=== PATIENT | male | born 1955 | race Hispanic/Latino ===

== ENCOUNTER 2016-07-14 19:05 | Inpatient (IN) | payer MEDICAID ==
--- NOTE | 2016-07-14 19:32 | ED.PDOC ---
History of Present Illness - General Chief Complaint: Abdominal Pain Stated Complaint: abd pain and swelling in his legs Time Seen by Provider: 07/14/16 19:13 Source: patient Exam Limitations: no limitations - History of Present Illness Initial Comments: Patient presents with increasing edema for 3-4 weeks. He says it is in his legs and abdomen. He has been to other hospitals, the last one a week ago, but denies any current diagnosis. He has a history of cardiac surgery that he says was a valve repair. Denies hx of AMI. He has had a previous episode of edema years ago. He also has had a non-productive cough for one week. He says he was told he was getting pneumonia by the last hospital. Denies any chest pain. He does have mild pain in both feet when standing because of the fluid. No other complaints. Timing/Duration: other - one month Severity: moderate Improving Factors: nothing Worsening Factors: nothing Associated Symptoms: denies symptoms Allergies/Adverse Reactions: Allergies NO KNOWN ALLERGY Allergy (Verified 07/14/16 19:12) Home Medications: Ambulatory Orders Aspirin [Aspirin Adult Low Dose] 81 mg PO QAM #30 tab 02/24/15 Lisinopril 10 mg PO QAM #30 tab 02/24/15 Metformin HCl 500 mg PO BID #60 tab 02/24/15 Simvastatin [Zocor] 20 mg PO QPM #30 tab 02/24/15 Acetaminophen W/ Codeine [Acetaminophen/Codeine 300-30 mg] 1 tab PO Q6-8H PRN # 15 tab 02/26/15 Ibuprofen 600 mg PO Q8HRS PRN #30 tab 02/26/15 Cyclobenzaprine HCl [Flexeril] 10 mg PO Q8HR PRN #20 tab 02/27/15 Review of Systems - Review of Systems Constitutional: States: no symptoms reported EENTM: States: no symptoms reported Respiratory: States: see HPI Cardiology: States: no symptoms reported Gastrointestinal/Abdominal: States: no symptoms reported Genitourinary: States: no symptoms reported Musculoskeletal: States: no symptoms reported Skin: States: no symptoms reported Neurological: States: no symptoms reported Endocrine: States: no symptoms reported Hematologic/Lymphatic: States: no symptoms reported Past Medical History (General) - Patient Medical History Hx Seizures: No Hx Stroke: No Hx Dementia: No Hx Asthma: No Hx of COPD: No Hx Cardiac Disorders: No Hx Congestive Heart Failure: No Hx Pacemaker: No Hx Hypertension: No Hx Thyroid Disease: No Hx Diabetes: No Hx Gastroesophageal Reflux: No Hx Renal Disease: No Hx Cancer: No Hx of HIV: No Hx Hepatitis C: No Hx MRSA: No - Vaccination History Hx Tetanus, Diphtheria Vaccination: No - Social History Hx Tobacco Use: No Hx Chewing Tobacco Use: No Hx Alcohol Use: Yes - daily last drink 1 1/2 week ago Hx Substance Use: No Hx Substance Use Treatment: No Hx Depression: No Hx Physical Abuse: No Hx Emotional Abuse: No Hx Suspected Abuse: No Family Medical History - Family History Mother Family History: Unknown Physical Exam - Physical Exam General Appearance: Alert Eye Exam: bilateral normal Ears, Nose, Throat: normal ENT inspection Neck: non-tender, full range of motion, supple Respiratory: chest non-tender, lungs clear, normal breath sounds Cardiovascular/Chest: normal peripheral pulses, regular rate, rhythm Gastrointestinal/Abdominal: normal bowel sounds, non tender, soft, distended Back Exam: normal inspection, no CVA tenderness Extremity: other - 2+ non-pitting edema bilateral feet to mid-tibia Neurologic: no motor/sensory deficits Skin Exam: normal color Lymphatic: no adenopathy Progress - Progress Progress: 07/14/16 20:25 Laboratory Tests 07/14/16 19:35 WBC 7.0 RBC 3.89 L Hgb 10.8 L Hct 33.6 L MCV 86.3 MCH 27.7 MCHC 32.1 L RDW 14.9 H Plt Count 209 MPV 8.7 Absolute Neuts (auto) 5.30 Absolute Lymphs (auto) 1.00 Absolute Monos (auto) 0.40 Absolute Eos (auto) 0.30 Absolute Basos (auto) 0.10 Neutrophils % 75.6 Lymphocytes % 13.8 L Monocytes % 5.0 Eosinophils % 4.5 Basophils % 1.1 PT 13.5 H INR 1.200 Sodium 139 Potassium 3.9 Chloride 106 Carbon Dioxide 26 Anion Gap 10.9 L BUN 24 H Creatinine 0.99 BUN/Creatinine Ratio 24.2 H Random Glucose 182 H Serum Osmolality 286.2 Calcium 8.8 Total Bilirubin 0.8 AST 28 ALT 27 Alkaline Phosphatase 353 H Creatine Kinase 126 CK-MB (CK-2) 5.9 H* CK-MB (CK-2) % 4.68 H Troponin I 0.05 B-Natriuretic Peptide 2180.0 H* Serum Total Protein 8.2 Albumin 3.2 Globulin 5.0 H Albumin/Globulin Ratio 0.6 L BNP 2180. LFTs wnl. Likely CHF anasarca. Lasix 80 mg IV given in the ER. Patient admitted for CHF exacerbation. Departure - Departure Clinical Impression: CHF (congestive heart failure) Disposition: Admit Patient Condition: Good Departure Forms: ED Discharge - Pt. Copy, Patient Portal Self Enrollment Instructions: DI for Abdominal Pain-Adult Diet: other - as per hospitalist Activity: increase activity as tolerated Home Medications: Ambulatory Orders Aspirin [Aspirin Adult Low Dose] 81 mg PO QAM #30 tab 02/24/15 Lisinopril 10 mg PO QAM #30 tab 02/24/15 Metformin HCl 500 mg PO BID #60 tab 02/24/15 Simvastatin [Zocor] 20 mg PO QPM #30 tab 02/24/15 Acetaminophen W/ Codeine [Acetaminophen/Codeine 300-30 mg] 1 tab PO Q6-8H PRN # 15 tab 02/26/15 Ibuprofen 600 mg PO Q8HRS PRN #30 tab 02/26/15 Cyclobenzaprine HCl [Flexeril] 10 mg PO Q8HR PRN #20 tab 02/27/15
--- NOTE | 2016-07-14 20:00 | RAD ---
EXAM DESCRIPTION: Chest,2 Views CLINICAL HISTORY: edema COMPARISON: None FINDINGS: Cardiac silhouette is mildly enlarged. Patient is status post median sternotomy and aortic valve surgery. Linear opacities within the left lower lobe may represent scar versus subsegmental atelectasis. There is blunting of the left costophrenic angle which could be secondary to pleural fluid. There is no focal parenchymal or pleural disease. There is no acute osseous process visualized. IMPRESSION: Blunted left costophrenic angle and linear opacities in the left lower lung could be secondary to small amount of pleural fluid and atelectasis. Electronically signed by: Jorge Lloyd MD 07/14/2016 5:59 PM PST
[2016-07-14] MEDS ORDERED: FUROSEMIDE INJ 40 MG/4 ML VIAL IV ONE (20:17)
--- NOTE | 2016-07-14 22:56 | HP ---
SUPERVISING PHYSICIAN: Amado Monique MD CHIEF COMPLAINT: Abdominal pain and swelling in his legs. HISTORY OF PRESENT ILLNESS: This is a 60-year-old male patient who has had complaints of increasing swelling in his lower extremities and abdominal pain for several weeks. He has been to other hospitals in the last several weeks, but denies any current congestive heart failure diagnosis. He did have some sort of heart surgery in November of 2015, but he does not know what type of surgery it was. He came to the Emergency Room today because he was having a hard time breathing because he said his "stomach is pushing up into my lungs." He also said that his legs were swelling so much that it hurt to stand on them. In the Emergency Room, his lab showed a hemoglobin of 10.8 and hematocrit 33.6 with white count 7, neutrophils 75.6. Sodium 139, potassium 3.9, chloride 106, carbon dioxide 26, BUN 24, creatinine 0.99, glucose 182, alkaline phosphatase 353, CK-MB 5.9, troponin 0.05, BNP 2180. Chest x-ray showed cardiac silhouette mildly enlarged status post median sternotomy and aortic valve surgery with blunting of the left costophrenic angle which could be secondary to pleural fluid. There is no parenchymal or pleural disease. He was given 80 mg of Lasix in the Emergency Room. The Emergency Room reported that he had very good output, but there is no measured output on the chart. I was called for hospital admission. It is to be noted that the patient is a very poor historian. PAST MEDICAL HISTORY: 1. Hypertension. 2. Diabetes mellitus, type 2. 3. Coronary artery disease. 4. Hyperlipidemia. PAST SURGICAL HISTORY: 1. Cardiac surgery, most likely valve replacement in November of 2015. OUTPATIENT MEDICATIONS: Per the electronic medical record and awaiting verification. ALLERGIES: NO KNOWN DRUG ALLERGIES. SOCIAL HISTORY: He lives alone. He has been seeing a physician at the [facility] in [place], but is unable to drive anymore, so he would like to get established with someone in [place]. He denies any tobacco, ETOH, or illicit drug use. REVIEW OF SYSTEMS: GENERAL: He complains of fatigue. Denies fever or chills. HEENT: Denies sinus pain, ear pain, vision changes, or sore throat. RESPIRATORY: As per history of present illness. CARDIAC: Denies chest pain, palpitations or tachycardia. GASTROINTESTINAL: As per history of present illness. GENITOURINARY: Denies hematuria, nocturia, or polyuria. SKIN: Denies lesions or rashes. NEUROLOGIC: Denies headache, dizziness, or seizures. PHYSICAL EXAMINATION: VITAL SIGNS: Temperature 98.2. Heart rate 92. Respiratory rate 18. Blood pressure 157/88. O2 saturation 95%. GENERAL: This is a 60-year-old male patient who is laying in his hospital bed. He is in no acute distress. HEENT: Normocephalic, atraumatic. Pupils are equal and reactive. Oropharynx is clear. NECK: Supple without mass. There is discernible jugular venous distention. RESPIRATORY: A few scattered crackles bilaterally, otherwise clear to auscultation. CARDIAC: Regular rate and rhythm. ABDOMEN: Rounded. He does have some anasarca, but it is soft, nontender. No organomegaly. Bowel sounds are positive. EXTREMITIES: +1 to 2 edema to bilateral lower extremities. Bilateral pedal pulses are +1. NEUROLOGIC: Awake, alert and oriented times three. SKIN: Warm and dry. There are no lesions or rashes. LABORATORY: Labs and films are as per history of present illness. ASSESSMENT: 1. Congestive heart failure with unknown etiology and BNP of 2180. 2. Coronary artery disease with history of heart surgery. 3. Elevated alkaline phosphatase at 353. 4. Hypertension. 5. Diabetes mellitus, type 2. PLAN: We will admit the patient to the hospital under congestive heart failure orders. He will get scheduled Lasix. We will reevaluate his dosing in the morning. It would most likely be helpful to request his records from [facility]. Dr. Escoto performed his surgery. I have also consulted [employer] to assist him in financial assistance as well as we will need to get his care moved to [facility]. I have also done a potassium level to be done right now as he has diuresed quite a bit and we may need to replace his potassium before morning with strict I&O. Repeat lab and chest x-ray in the morning. It will be helpful for him to get an outpatient echocardiogram. He is presently on lisinopril and the dosage may need to be adjusted. I have also put him on sliding scale insulin coverage. He is on telemetry. We will continue to monitor the patient closely and followup as needed. Dr. Monique is the collaborating physician and available for consultation. #[id number] [facility]
[2016-07-14] MEDS ORDERED: NITROGLYCERIN 0.4 MG 25 EA TAB SL PRN (23:38)
[2016-07-14] MEDS ORDERED: SODIUM CHLORIDE 0.9% (FLUSH) 10 ML SYG IV PRN (23:38)
[2016-07-14] MEDS ORDERED: GLUCAGON INJ 1 MG VIAL SUBCU PRN (23:45)
[2016-07-14] MEDS ORDERED: IV SET AND CAP CHANGE INJ INJ SCH (23:45)
[2016-07-14] MEDS ORDERED: DEXTROSE 50% 25 GM/50 ML SYG IV PRN (23:45)
[2016-07-15] MEDS: FUROSEMIDE INJ 40 MG/4 ML VIAL IV SCH ×2 (05:52→14:24)
--- NOTE | 2016-07-15 07:18 | RAD ---
EXAM: Two view chest. INDICATION: Chest pain. COMPARISON: Chest x-ray: 07/14/2016. FINDINGS: The lungs are clear. The heart is mildly enlarged with changes of valve replacement. There is no pneumothorax. There is mild blunting of the left costophrenic angle, which may be due to a small effusion or pleural thickening. Median sternotomy wires are noted. IMPRESSION: 1. No acute cardiopulmonary process. Electronically signed by: Jaime Elliott MD 07/15/2016 7:18 AM DOCUMENTATION LEAD
--- NOTE | 2016-07-15 07:19 | RAD ---
CLINICAL HISTORY:anasarca. :1955.Sex:Male. TECHNIQUE: Supine and upright views of the abdomen. There is no intestinal dilatation. There is no mass. There is no free air. There is no opaque calculus. Skeletal structures are unremarkable. IMPRESSION: 1. No acute radiographic findings.. Electronically signed by: Jaime Elliott MD 07/15/2016 7:18 AM TRUCK TERMINAL MANAGER
[2016-07-15] MEDS ORDERED: POTASSIUM CHLORIDE 20 MEQ TAB PO ONE (07:28)
[2016-07-15] MEDS: INSULIN LISPRO 100 UNITS/ML PEN SUBCU SCH ×4 (07:42→21:01)
[2016-07-15] MEDS: SODIUM CHLORIDE 0.9% (FLUSH) 10 ML SYG IV SCH ×2 (08:54→21:00)
[2016-07-15] MEDS ORDERED: cefTRIAXone SODIUM 1 GM in SODIUM CHL 0.9% 50ML MIN-BAG+ 50 ML IVPB SCH (10:00)
[2016-07-15] MEDS ORDERED: MAGNESIUM HYDROXIDE 30 ML UD PO PRN (18:22)
--- NOTE | 2016-07-15 22:11 | PCM.CORE ---
Physician DVT/VTE - Prophylaxis Currently: Patient already on anticoagulation therapy - Nurse DVT Assessment & Total Each Risk Factor Represents 3 Points: Medical PT with Hx of SC, CHF, Severe infection/sepsis Each Risk Factor Represents 1 Point: Age 41-60 Each Risk Factor is 1 Point: Varicose Veins/Edema Legs DVT Assessment Score: 5 - 5 or more Very High Risk Treatments: Early Ambulation *, Sequential Compression Device
[2016-07-15] MEDS ORDERED: PANTOPRAZOLE SODIUM IV 40 MG VIAL ONE (22:33)
[2016-07-15] MEDS: ENOXAPARIN SODIUM 40 MG/0.4 ML SYG SUBCU SCH (22:45)
[2016-07-16] MEDS: ACETAMINOPHEN 325 MG TAB PO PRN ×3 (04:52→20:30)
[2016-07-16] MEDS: PANTOPRAZOLE SODIUM TAB 40 MG PO SCH ×2 (06:16→06:47)
[2016-07-16] MEDS ORDERED: PANTOPRAZOLE SODIUM IV 40 MG VIAL IV ONE (06:30)
[2016-07-16] MEDS: INSULIN LISPRO 100 UNITS/ML PEN SUBCU SCH ×4 (07:33→21:16)
[2016-07-16] MEDS: POTASSIUM CHLORIDE 20 MEQ TAB PO SCH (07:44)
--- NOTE | 2016-07-16 08:20 | PN ---
SUPERVISING PHYSICIAN: Amado Monique MD DATE: 07/15/16 SUBJECTIVE: The patient is lying in bed. He states he is feeling much better today. He does complain of some constipation. He said he has not gone to the bathroom in a while. He has no complaints of shortness of breath or swelling. No abdominal pain or nausea or vomiting. OBJECTIVE: VITAL SIGNS: Temperature 98.6, heart rate 84, blood pressure 100/62, respiratory rate 18, 02 saturation 94%. I&O is 440 mils in and 2600 mils out for a negative balance of 2160 plus the output from the Emergency Room. GENERAL: This is a 60 year-old male patient who is lying in his hospital bed. He is in no acute distress. RESPIRATORY: A few scattered crackles throughout the apices but otherwise clear to auscultation. CARDIAC: Regular rate and rhythm. ABDOMEN: Slightly rounded but soft, nondistended, non-tender. Bowel sounds are positive. EXTREMITIES: No cyanosis or clubbing. There is a trace of pedal edema to his bilateral lower extremities. NEUROLOGICAL: Awake, alert, and oriented x3. LABORATORY: CBC is stable with WBC of 6.7, hemoglobin 10, hematocrit 31. Sodium 143, potassium slightly low at 3.3. BUN 23, creatinine 0.95, glucose 97, alkaline phosphatase has come down from 353 yesterday to 283 today. RADIOLOGY: Chest x-ray and abdominal x-ray are both negative for any acute processes. All other labs and films have been reviewed via the EMR. ASSESSMENT: 1. Congestive heart failure with unknown etiology and BNP on admission of 2, 180. 2. Coronary artery disease with history of heart surgery. 3. Elevated alkaline phosphatase that is slightly improved. 4. Hypertension. 5. Diabetes mellitus type 2. PLAN: I have decreased his diuretics. Emy Hogue, our Software Support Analyst , has been discussing with the patient his insurance acceptance and getting the proper paperwork in place. He has improved very much each day. I will back off of the diuretics. I have also replaced his potassium this morning and will repeat his labs in the morning. He will be unable to continue his medical care in [place] and will most likely need to be changed to [facility] upon discharge. He will also need an echocardiogram or we can try to get the medical records from [facility]. We will continue to follow the patient closely and followup as needed. [facility][id number] [facility]
[2016-07-16] MEDS ORDERED: FUROSEMIDE INJ 40 MG/4 ML VIAL IV SCH (09:00)
[2016-07-16] MEDS: SODIUM CHLORIDE 0.9% (FLUSH) 10 ML SYG IV SCH ×2 (09:03→20:30)
--- NOTE | 2016-07-16 18:11 | PN ---
DATE: 07/16/16 SUPERVISING PHYSICIAN: Errol Alfaro M.D. SUBJECTIVE: The patient is doing better today. Notes that he has no complaints of shortness of breath today and that the swelling has decreased. He has had no abdominal pains, nausea or vomiting. He has had no abdominal pains, nausea or vomiting. OBJECTIVE: VITAL SIGNS: Temperature 97.5, pulse 73, blood pressure 131/64, respirations 18, O2 sat 98% on room air. I's and O's show a negative balance of 470 with 2580 in, 3050 out. Weight 75.2 kg. CHEST: Lungs are clear today to auscultation bilaterally. There is no audible rhonchi, wheezing or rales. HEART: Regular rate and rhythm. ABDOMEN: Round but soft, non-tender. Positive bowel sounds. EXTREMITIES: No cyanosis or clubbing. Still has a trace to 1+ edema to the bilateral lower extremities. NEUROLOGIC: He is alert and oriented times three. LABORATORY: CBC shows to be stable with a white count 8.4, hemoglobin 10.5, hematocrit 31.7, platelet count 220,000. Differential is within normal limits. Chemistries show low potassium 3.3 with BUN 21, creatinine 1.1. Glucoses have been 95 to 300. Liver functions show to be within normal limits except for an elevated alkaline phosphatase which is showing improvement from admission now at 270 from an initial 353. ASSESSMENT: 1. Congestive heart failure with unknown etiology and BNP on admission 2,180 without any reference for a recent echocardiogram for review. 2. Coronary artery disease with a history of heart surgery. 3. Elevated alkaline phosphatase showing improvement likely secondary to congestive heart failure. 4. Hypertension. 5. Diabetes mellitus type 2. PLAN: Will continue with current plan of care, decreasing his Lasix today. His Lasix is going to be at 40 daily with close observation. Will continue to replace his potassium as needed. Anticipate discharge tomorrow with repeat laboratory studies and chest x-ray in the morning. Until then, will continue to monitor the patient closely and treat appropriately. Once the patient is discharged, then he will need a followup with [facility] to help arrange an echocardiogram to further assess his left ventricular function. Still awaiting echocardiogram that was supposedly done in [facility]. Will continue to follow the patient up until discharge and until then treat appropriately. #[id number] [facility]
[2016-07-16] MEDS: ENOXAPARIN SODIUM 40 MG/0.4 ML SYG SUBCU SCH (22:11)
[2016-07-17] MEDS: PANTOPRAZOLE SODIUM TAB 40 MG PO SCH (06:05)
[2016-07-17] MEDS ORDERED: PANTOPRAZOLE SODIUM TAB 40 MG PO SCH (06:30)
[2016-07-17] MEDS: INSULIN LISPRO 100 UNITS/ML PEN SUBCU SCH (07:45)
[2016-07-17] MEDS: POTASSIUM CHLORIDE 20 MEQ TAB PO SCH (07:46)
[2016-07-17] MEDS ORDERED: POTASSIUM CHLORIDE 10 MEQ TAB PO SCH (08:00)
[2016-07-17] MEDS ORDERED: metFORMIN HCL 500 MG TAB PO SCH (08:00)
[2016-07-17] MEDS ORDERED: metFORMIN HCL 500 MG TAB ONE (08:12)
[2016-07-17] MEDS ORDERED: FUROSEMIDE 40 MG TAB PO SCH (09:00)
[2016-07-17] MEDS ORDERED: LISINOPRIL 5 MG TAB PO SCH (09:00)
[2016-07-17] MEDS: SODIUM CHLORIDE 0.9% (FLUSH) 10 ML SYG IV SCH (09:20)
[2016-07-17 10:20] VITALS: BP 147/84; TEMP 97.5; O2SAT 98
--- NOTE | 2016-07-18 11:39 | DS ---
SUPERVISING PHYSICIAN: Errol Alfaro M.D. DISCHARGE DIAGNOSIS: 1. Congestive heart failure with unknown etiology with BNP on admission 2,180 without any reference for a recent echocardiogram for review with the patient having recent heart surgery in 2015 with records for last hospitalization at [facility] with surgery being performed by Dr. Escoto for review of possible echocardiogram that was done as an outpatient. Surgery possibly was either for a CABG or aortic valve surgery without any current records for review. The patient was a poor historian on admission. 2. Coronary artery disease with a history of heart surgery in Nov [address] Escoto. 3. Elevated alkaline phosphatase unknown etiology. Need close monitoring as an outpatient. 4. Hypertension, stable. 5. Diabetes mellitus type 2. HISTORY OF PRESENT ILLNESS: Mr. Hernandez is a 60-year-old male patient that was admitted for complaints of increasing swelling in his lower extremities and abdominal pain for several weeks prior to admission. He had been seen in other hospitals in the last weeks, but denies any current congestive heart failure diagnosis. He did have heart surgery in November of 2015, but did not know what type of surgery he had. He came to the Emergency Room on the day of admission, 07/14/16, because he was having a hard time breathing. He said his stomach is pushing up into his lungs. He said that he has had his leg swelling and it hurts him to stand on up. In the Emergency Room, his lab showed a hemoglobin of 10.8 and hematocrit 33.6 with white count 7, troponin 0.05 with a BNP of 2180. Chest x-ray showed cardiac silhouette mildly enlarged status post median sternotomy and aortic valve surgery with blunting of the left costophrenic angle which could be secondary to pleural fluid. There is no parenchymal or pleural disease noted. He was given 80 mg of Lasix in the Emergency Room and had good output, and then admitted to the hospital for further treatment and evaluation. LABORATORY: White count on admission was 7. It stayed within normal limits, at discharge was 8.4. Hemoglobin and hematocrit were stable at 10.5 and 31.7 at discharge. Platelet count was as well at 220,000 within normal limits at discharge. Differential showed no left shift. Coagulation studies showed PT 13.6 with INR 1.2. Chemistries initially on admission showed normal electrolytes with BUN 24, creatinine 0.9. Liver function showed an elevated alkaline phosphatase at 353 with troponin 0.05. BNP was 2180. After treatment with diuresis at time of discharge his alkaline phosphatase was shown to continue to decrease. It was at 270 prior to discharge and on date of discharge electrolytes were normal with potassium 3.7, BUN 25, creatinine 1.9, calcium 8.9. Glucoses ranged from 101 to 251. Urine on admission showed just a small amount of blood on dipstick with microscopic indicating 3 to 5 RBCs. He had no microbiology specimens submitted for review. RADIOLOGY: Initial chest x-ray on admission showed blunting of the left costophrenic angle with linear opacities in the left lower lung possibly secondary to pleural fluid or atelectasis. Repeat chest x-ray showed no acute cardiopulmonary processes. HOSPITAL COURSE: Mr. Hernandez was admitted on 07/14/16 as noted in the History of Present Illness for exacerbation of congestive heart failure and started on diuresis. Initial assessment showed him to have a degree of anasarca from edema which showed good resolution after diuresis. Total diuresis showed well over 5.5 liters of urine with weight going from 71.6 kg down to 65.8 at time of discharge. Vital signs remained stable. Initial blood pressure showed initial hypertension at 155/92, at time of discharge he was showing 147/84. He was started on Lisinopril. He maintained O2 sats in the 90s without any assistance and was able to ambulate with minimal dyspnea, not requiring oxygen for assistance. Last ambulation study on the showed 96% saturations prior to ambulation maintaining 100% for 214 feet and at time of end of ambulation was showing 99%, and was showing no shortness of breath. He was felt clinically improved enough to be discharged home. PLAN: Mr. Hernandez was discharged on 07/17/16 with instructions to have close clinical followup with Venus Silva at [facility], to call the clinic on Tuesday after discharge for appointment time. He was to take his new prescriptions as instructed and monitor his weight daily, and if he had a 3 pound weight gain or more or any shortness of breath, to call the clinic or come to the hospital. He was also encouraged to watch his fluid intake and limit to at least less than 1800 mL per 24 hour period. He is to increase his activity as tolerated and to keep his legs elevated when in a sitting position. He was told to return to the hospital should he have no improvement or any worsening of his symptoms. New prescriptions at time of discharge included: 1. Lasix 40 mg daily, #30. 2. Potassium 10 mEq daily, #30. 3. Lisinopril 5 mg daily, #30. The patient will need an echocardiogram if not already completed, however there was no current records at time of admission for review of echocardiogram. He was discharged in stable condition. #[id number] [facility]
--- NOTE | 2016-07-22 14:09 | RAD ---
NAME: KALLI MENDOZAPROCEDURE: XR CHEST 2 VIEWSORDER DATE: 07/16/2016 10:49 PM CSTACCESSION NUMBER: [id number] CLINICAL HISTORY: chf INDICATION: Same as above COMPARISON: 07/15/2016 TECHNIQUE: PA and and lateral chest radiographs were obtained. FINDINGS: Note is again made of median sternotomy and CABG. Note is again made of a prosthetic cardiac valve. There are no discrete airspace infiltrates, pneumothoraces or pleural effusions. The pulmonary vascularity is normal The cardiomediastinal silhouette is otherwise unremarkable for patient's age and sex. IMPRESSION: There is no acute pleural-parenchymal process seen in the imaged lung condon. Place of interpretation: Teleradiology. Electronically signed by: Brandin Lopez MD 07/17/2016 9:29 AM EMERGENCY MEDICINE
--- NOTE | 2016-08-15 23:46 | RAD ---
NAME: KALLI MENDOZAPROCEDURE: XR CHEST 2 VIEWSORDER DATE: 07/16/2016 10:49 PM CSTACCESSION NUMBER: [id number] CLINICAL HISTORY: chf INDICATION: Same as above COMPARISON: 07/15/2016 TECHNIQUE: PA and and lateral chest radiographs were obtained. FINDINGS: Note is again made of median sternotomy and CABG. Note is again made of a prosthetic cardiac valve. There are no discrete airspace infiltrates, pneumothoraces or pleural effusions. The pulmonary vascularity is normal The cardiomediastinal silhouette is otherwise unremarkable for patient's age and sex. IMPRESSION: There is no acute pleural-parenchymal process seen in the imaged lung condon. Place of interpretation: [facility]iology. Electronically signed by: Brandin Lopez MD 07/17/2016 9:29 AM CRICKET COACH
--- NOTE | 2016-08-16 01:20 | RAD ---
NAME: KALLI MENDOZAPROCEDURE: XR CHEST 2 VIEWSORDER DATE: 07/16/2016 10:49 PM CSTACCESSION NUMBER: [id number] CLINICAL HISTORY: chf INDICATION: Same as above COMPARISON: 07/15/2016 TECHNIQUE: PA and and lateral chest radiographs were obtained. FINDINGS: Note is again made of median sternotomy and CABG. Note is again made of a prosthetic cardiac valve. There are no discrete airspace infiltrates, pneumothoraces or pleural effusions. The pulmonary vascularity is normal The cardiomediastinal silhouette is otherwise unremarkable for patient's age and sex. IMPRESSION: There is no acute pleural-parenchymal process seen in the imaged lung condon. Place of interpretation: Teleradiology. Electronically signed by: Brandin Lopez MD 07/17/2016 9:29 AM SHREDDING SPECIALIST
--- NOTE | 2016-08-16 02:12 | RAD ---
NAME: KALLI MENDOZAPROCEDURE: XR CHEST 2 VIEWSORDER DATE: 07/16/2016 10:49 PM CSTACCESSION NUMBER: [id number] CLINICAL HISTORY: chf INDICATION: Same as above COMPARISON: 07/15/2016 TECHNIQUE: PA and and lateral chest radiographs were obtained. FINDINGS: Note is again made of median sternotomy and CABG. Note is again made of a prosthetic cardiac valve. There are no discrete airspace infiltrates, pneumothoraces or pleural effusions. The pulmonary vascularity is normal The cardiomediastinal silhouette is otherwise unremarkable for patient's age and sex. IMPRESSION: There is no acute pleural-parenchymal process seen in the imaged lung condon. Place of interpretation: Teleradiology. Electronically signed by: Brandin Lopez MD 07/17/2016 9:29 AM APPEALS AND GENERALIST CLERK
--- NOTE | 2016-08-16 04:24 | RAD ---
NAME: KALLI MENDOZAPROCEDURE: XR CHEST 2 VIEWSORDER DATE: 07/16/2016 10:49 PM CSTACCESSION NUMBER: [id number] CLINICAL HISTORY: chf INDICATION: Same as above COMPARISON: 07/15/2016 TECHNIQUE: PA and and lateral chest radiographs were obtained. FINDINGS: Note is again made of median sternotomy and CABG. Note is again made of a prosthetic cardiac valve. There are no discrete airspace infiltrates, pneumothoraces or pleural effusions. The pulmonary vascularity is normal The cardiomediastinal silhouette is otherwise unremarkable for patient's age and sex. IMPRESSION: There is no acute pleural-parenchymal process seen in the imaged lung condon. Place of interpretation: Teleradiology. Electronically signed by: Brandin Lopez MD 07/17/2016 9:29 AM FIRMWARE ARCHITECT
--- NOTE | 2016-08-16 05:34 | RAD ---
NAME: KALLI MENDOZAPROCEDURE: XR CHEST 2 VIEWSORDER DATE: 07/16/2016 10:49 PM CSTACCESSION NUMBER: [id number] CLINICAL HISTORY: chf INDICATION: Same as above COMPARISON: 07/15/2016 TECHNIQUE: PA and and lateral chest radiographs were obtained. FINDINGS: Note is again made of median sternotomy and CABG. Note is again made of a prosthetic cardiac valve. There are no discrete airspace infiltrates, pneumothoraces or pleural effusions. The pulmonary vascularity is normal The cardiomediastinal silhouette is otherwise unremarkable for patient's age and sex. IMPRESSION: There is no acute pleural-parenchymal process seen in the imaged lung condon. Place of interpretation: Teleradiology. Electronically signed by: Brandin Lopez MD 07/17/2016 9:29 AM BENEFITS PROCESSOR
== END 2016-07-17 11:30 | disposition home or self-care (01) | DRG 293 ==
LOC: ER 19:05 → OBSVTOIN 22:54 → MS 22:54
PROVIDERS: ADMIT Nurse Practitioner Acute Care; ATTEND Nurse Practitioner Family
DX: I11.0 Hypertensive heart disease with heart failure (principal); I50.9 Heart failure, unspecified; E87.6 Hypokalemia; K59.00 Constipation, unspecified; I25.10 Atherosclerotic heart disease of native coronary artery without angina pectoris; R74.8 Abnormal levels of other serum enzymes; E11.9 Type 2 diabetes mellitus without complications; E78.5 Hyperlipidemia, unspecified; Z79.82 Long term (current) use of aspirin; Z98.890 Other specified postprocedural states; Z79.84 Long term (current) use of oral hypoglycemic drugs; Z79.899 Other long term (current) drug therapy

== ENCOUNTER → 2016-08-10 | Outpatient (CLI) | payer SELFPAY ==
--- NOTE | 2016-08-10 13:14 | RAD ---
EXAM DESCRIPTION: XR ABDOMEN 2 VIEWS SUPINE ERECT CLINICAL HISTORY: 60 y/o M, ABDOMEN PAIN COMPARISON: None. FINDINGS: Supine and upright views of the abdomen show an abnormal bowel gas pattern with air and fluid-filled loops of small bowel in the mid abdomen and left upper quadrant. The loops are not significantly dilated. There is air in stool in the colon. Scarring is present in the medial left lung base. Heart size is prominent. Aortic valve replacement noted. IMPRESSION: 1. Nonspecific but abnormal bowel gas pattern with mildly prominent loops of air and fluid-filled small bowel in the left upper quadrant and mid abdomen. Gastroenteritis could have this appearance. Electronically signed by: Marty Aviles MD 08/10/2016 13:12
--- NOTE | 2016-08-10 13:16 | RAD ---
EXAM DESCRIPTION: XR CHEST 2 VIEWS CLINICAL HISTORY: HEART FAILURE COMPARISON: 17 July 2016 TECHNIQUE: PA/lateral FINDINGS: There is mild cardiomegaly without failure. Changes status post aortic valve replacement and coronary bypass. Scarring in the left medial lung base not changed since prior. There is no acute parenchymal consolidation. IMPRESSION: 1. Cardiomegaly without failure 2. Scarring in the left medial posterior lung base Electronically signed by: Marty Aviles MD 08/10/2016 13:14
== END | disposition home or self-care (01) ==
LOC: YCFC.O 11:35
PROVIDERS: ATTEND Nurse Practitioner Family
DX: I50.9 Heart failure, unspecified (principal); R10.9 Unspecified abdominal pain; R60.0 Localized edema; E11.65 Type 2 diabetes mellitus with hyperglycemia; R74.8 Abnormal levels of other serum enzymes

== ENCOUNTER 2016-08-13 03:29 | Emergency (ER) | payer SELFPAY ==
--- NOTE | 2016-08-13 03:50 | ED.PDOC ---
History of Present Illness - General Chief Complaint: General Stated Complaint: swelling in legs and abd distension Time Seen by Provider: 08/13/16 03:49 Source: patient, RN notes reviewed, Vital Signs reviewed Exam Limitations: no limitations - History of Present Illness Initial Comments: Jonh 61 y/o male with history of dm 2,cad s/p cabg December 2015 stated his legs had gradually swelled up as well as increasing abdominal girth for the last 6 months he stated that the last 5 days unable to sleep abdomen and legs getting tight.Denies any chest pain but with exertional sob,no orthopnea.Stated he had not been taking all his prescibed medications as ordered according to him making him more weak. Timing/Duration: other - 6 months Severity: moderate Improving Factors: nothing Worsening Factors: nothing Associated Symptoms: denies symptoms Allergies/Adverse Reactions: Allergies NO KNOWN ALLERGY Allergy (Verified 07/14/16 20:27) Home Medications: Ambulatory Orders Metformin HCl 1,000 mg PO BID 07/15/16 Furosemide [Lasix] 40 mg PO DAILY #30 tab 07/17/16 Lisinopril [Prinivil] 5 mg PO DAILY #30 tab 07/17/16 Potassium Chloride [Micro-K] 10 meq PO DAILY #30 cap 07/17/16 Levothyroxine Sodium [Levo-T] 25 mcg PO ACBK #30 tab 08/13/16 Polyethylene Glycol 3350 [Miralax] 1 pow PO 08/13/16 Review of Systems - Review of Systems Constitutional: States: no symptoms reported EENTM: States: no symptoms reported Respiratory: States: no symptoms reported Cardiology: States: see HPI Gastrointestinal/Abdominal: States: no symptoms reported Genitourinary: States: no symptoms reported Musculoskeletal: States: no symptoms reported Skin: States: no symptoms reported Neurological: States: no symptoms reported Endocrine: States: no symptoms reported Hematologic/Lymphatic: States: no symptoms reported Past Medical History (General) - Patient Medical History Hx Seizures: No Hx Stroke: No Hx Dementia: No Hx Asthma: No Hx of COPD: No Hx Cardiac Disorders: No Hx Congestive Heart Failure: Yes - New onset Hx Pacemaker: No Hx Hypertension: Yes Hx Thyroid Disease: No Hx Diabetes: Yes Hx Gastroesophageal Reflux: No Hx Renal Disease: No Hx Cancer: No Hx of HIV: No Hx Hepatitis C: No Hx MRSA: No Surgical History: coronary bypass surgery - Vaccination History Hx Tetanus, Diphtheria Vaccination: No Hx Influenza Vaccination: No Hx Pneumococcal Vaccination: Yes - Social History Hx Tobacco Use: No Hx Chewing Tobacco Use: No Hx Alcohol Use: Yes - quit 1 yr ago Hx Substance Use: No Hx Substance Use Treatment: No Hx Depression: No Hx Physical Abuse: No Hx Emotional Abuse: No Hx Suspected Abuse: No - Activities of Daily Living Patient Lives Alone: Yes - has house in [place] but w/2 children here in town Grooming Ability: Independent Eating (Feeding) Ability: Independent Toileting Ability: Independent Family Medical History - Family History Mother Family History: Unknown Hx Family Hypertension: Yes - mom Hx Family Diabetes: Yes - mom Physical Exam - Physical Exam General Appearance: Alert, Comfortable, No apparent distress Eye Exam: bilateral normal Ears, Nose, Throat: hearing grossly normal, normal ENT inspection, normal pharynx Neck: non-tender, full range of motion, supple, normal inspection Respiratory: chest non-tender, lungs clear, no respiratory distress, rales - bases Cardiovascular/Chest: normal peripheral pulses, regular rate, rhythm, no edema, no gallop, no JVD, no murmur Peripheral Pulses: radial,right: 2+, radial,left: 2+ Gastrointestinal/Abdominal: normal bowel sounds, non tender, soft, distended Back Exam: normal inspection, no CVA tenderness, no vertebral tenderness Extremity: non-tender, no calf tenderness, pedal edema - bilateral Neurologic: no motor/sensory deficits, alert, normal mood/affect, oriented x 3 Skin Exam: normal color, warm/dry Lymphatic: no adenopathy Progress - Results/Orders Results/Orders: 08/13/16 03:51 Chest,1 View [RAD] Stat 08/13/16 04:15 B-TYPE NATRIURETIC PEPTIDE/BNP Stat CARDIAC PANEL,ER Stat COMPLETE METABOLIC PROFILE Stat TSH [THYROID STIMULATING HORMONE] Stat EKG STAT Laboratory Results WBC 7.1 K/mm3 (4.8-10.8) 08/13/16 04:15 RBC 3.91 M/mm3 (4.70-6.10) L 08/13/16 04:15 Hgb 10.7 gm/dL (14.0-18.0) L 08/13/16 04:15 Hct 33.1 % (42.0-52.0) L 08/13/16 04:15 MCV 84.8 fl (80.0-94.0) 08/13/16 04:15 MCH 27.3 pg (27.0-31.0) 08/13/16 04:15 MCHC 32.3 g/dL (33.0-37.0) L 08/13/16 04:15 RDW 16.4 % (11.5-14.5) H 08/13/16 04:15 Plt Count 149 K/mm3 (130-400) 08/13/16 04:15 MPV 9.8 fl (7.40-10.4) 08/13/16 04:15 Absolute Neuts (auto) 4.60 K/uL (1.8-6.8) 08/13/16 04:15 Absolute Lymphs (auto) 1.50 K/uL (1.0-3.4) 08/13/16 04:15 Absolute Monos (auto) 0.60 K/uL (0.2-0.8) 08/13/16 04:15 Absolute Eos (auto) 0.40 K/uL (0.0-0.4) 08/13/16 04:15 Absolute Basos (auto) 0.10 K/uL (0.0-0.1) 08/13/16 04:15 Neutrophils % 64.1 % (42.0-78.0) 08/13/16 04:15 Lymphocytes % 20.5 % (20.0-50.0) 08/13/16 04:15 Monocytes % 8.1 % (2.0-9.0) 08/13/16 04:15 Eosinophils % 5.9 % (1.0-5.0) H 08/13/16 04:15 Basophils % 1.4 % (0.0-2.0) 08/13/16 04:15 Sodium 140 mmol/L (135-145) 08/13/16 04:15 Potassium 4.1 mmol/L (3.6-5.0) 08/13/16 04:15 Chloride 106 mmol/L (101-111) 08/13/16 04:15 Carbon Dioxide 24 mmol/L (21-31) 08/13/16 04:15 Anion Gap 14.1 (12-18) 08/13/16 04:15 BUN 27 mg/dL (7-18) H 08/13/16 04:15 Creatinine 1.01 mg/dL (0.6-1.3) 08/13/16 04:15 BUN/Creatinine Ratio 26.7 (10-20) H 08/13/16 04:15 Random Glucose 113 mg/dL (70-105) H D 08/13/16 04:15 Serum Osmolality 285.3 mOsm/L (275-295) 08/13/16 04:15 Calcium 8.6 mg/dL (8.4-10.2) 08/13/16 04:15 Magnesium 1.9 mg/dL (1.8-2.5) 08/13/16 04:15 Total Bilirubin 1.1 mg/dL (0.2-1.0) H 08/13/16 04:15 AST 25 IU/L (10-42) 08/13/16 04:15 ALT 19 IU/L (10-60) 08/13/16 04:15 Alkaline Phosphatase 388 IU/L (42-121) H 08/13/16 04:15 Creatine Kinase 77 IU/L (38-174) 08/13/16 04:15 CK-MB (CK-2) 3.1 ng/mL (0.0-4.4) 08/13/16 04:15 Troponin I 0.04 ng/mL (0.01-0.05) 08/13/16 04:15 B-Natriuretic Peptide 1540.0 pg/ml (0-100) H* 08/13/16 04:15 Serum Total Protein 7.3 gm/dL (6.4-8.2) 08/13/16 04:15 Albumin 2.9 g/dl (3.2-5.5) L 08/13/16 04:15 Globulin 4.4 gm/dL (2.3-3.5) H 08/13/16 04:15 Albumin/Globulin Ratio 0.7 (1.1-1.9) L 08/13/16 04:15 - EKG/XRAY/CT EKG: LVH, nonspecific ST T wave Chg Comments: HR-76 XRAY: chest - cardiomegaly;slightly increase vascular markings Departure - Departure Clinical Impression: Non compliance w medication regimen, Diabetes mellitus type 2, controlled, Anemia, chronic disease, Hypothyroidism in adult Combined congestive systolic and diastolic heart failure Qualifiers: Congestive heart failure chronicity: acute on chronic Qualifier Code: (I50.43) Acute on chronic combined systolic (congestive) and diastolic (congestive) heart failure Alcoholic cirrhosis of liver Qualifiers: Ascites presence: without ascites Qualifier Code: (K70.30) Alcoholic cirrhosis of liver without ascites Time of Disposition: 05:52 Disposition: Discharge to Home or Self Care Condition: Fair Departure Forms: ED Discharge - Pt. Copy, Patient Portal Self Enrollment Prescriptions: Levothyroxine Sodium [Levo-T] 25 mcg PO ACBK #30 tab Home Medications: Ambulatory Orders Metformin HCl 1,000 mg PO BID 07/15/16 Furosemide [Lasix] 40 mg PO DAILY #30 tab 07/17/16 Lisinopril [Prinivil] 5 mg PO DAILY #30 tab 07/17/16 Potassium Chloride [Micro-K] 10 meq PO DAILY #30 cap 07/17/16 Levothyroxine Sodium [Levo-T] 25 mcg PO ACBK #30 tab 08/13/16 Polyethylene Glycol 3350 [Miralax] 1 pow PO 08/13/16 Additional Instructions: Increase Lasix-20 mg.Take 2 tablets am and 1 tablet at bedtime;Need to resume taking carvedilol and lisinopril;Keep appointment with md this am and need to bring all your home medications show it to your md on your visit.
[2016-08-13] MEDS ORDERED: BUMETANIDE 0.25 MG/ML VIAL IV ONE (03:51)
[2016-08-13] MEDS ORDERED: NITROGLYCERIN 0.4 MG 25 EA TAB SL ONE ×3 (04:01→05:57)
[2016-08-13 06:19] VITALS: BP 159/82; TEMP 98.1; O2SAT 96
--- NOTE | 2016-08-16 00:52 | RAD ---
EXAM: Single view chest. INDICATION: Chest pain. COMPARISON: Chest x-ray: 08/10/2016. FINDINGS: There is a worsening left basilar airspace opacity with left pleural effusion. Heart size is stable. There is no pneumothorax. Median sternotomy wires are noted. IMPRESSION: Worsening left basilar opacity with left pleural effusion Electronically signed by: Jaime Elliott MD 08/13/2016 4:32 AM AIRPORT MAINTENANCE CHIEF
--- NOTE | 2016-08-19 10:47 | RAD ---
EXAM: Single view chest. INDICATION: Chest pain. COMPARISON: Chest x-ray: 08/10/2016. FINDINGS: There is a worsening left basilar airspace opacity with left pleural effusion. Heart size is stable. There is no pneumothorax. Median sternotomy wires are noted. IMPRESSION: Worsening left basilar opacity with left pleural effusion Electronically signed by: Jaime Elliott MD 08/13/2016 4:32 AM RAILROAD CONSTRUCTION DIRECTOR
== END 2016-08-13 06:19 | disposition home or self-care (01) ==
LOC: ER 03:29
DX: I11.0 Hypertensive heart disease with heart failure (principal); I50.43 Acute on chronic combined systolic (congestive) and diastolic (congestive) heart failure; K70.30 Alcoholic cirrhosis of liver without ascites; Z95.1 Presence of aortocoronary bypass graft; E11.9 Type 2 diabetes mellitus without complications; E03.9 Hypothyroidism, unspecified; Z91.14 Patient's other noncompliance with medication regimen; D63.8 Anemia in other chronic diseases classified elsewhere; Z79.899 Other long term (current) drug therapy
CPT/HCPCS: 36415; 71010; 80048; 82550; 82553; 83880; 84443; 84484; 85025; 85610; 85730; 93005; J3490

== ENCOUNTER → 2016-08-13 | Outpatient (CLI) | payer SELFPAY | END | disposition home or self-care (01) | LOC: YCFC.O 10:20 | PROVIDERS: ATTEND Nurse Practitioner Family | DX: I50.9 Heart failure, unspecified (principal); R10.9 Unspecified abdominal pain; R60.0 Localized edema ==

== ENCOUNTER 2016-09-06 18:22 | Emergency (ER) | payer SELFPAY ==
[2016-09-06 18:43] VITALS: O2SAT 96
--- NOTE | 2016-09-06 18:49 | ED.PDOC ---
History of Present Illness - General Chief Complaint: General Stated Complaint: itching x several weeks Time Seen by Provider: 09/06/16 18:37 Source: patient, RN notes reviewed, Vital Signs reviewed Exam Limitations: no limitations - History of Present Illness Initial Comments: Patient c/o generalized itching for the past 2-3 weeks that is worse on his back and legs. He has been treating with calamine lotion. He also is having some epigastric pain. Timing/Duration: other - 2-3 weeks Severity: moderate Improving Factors: medication - Calamine lotion Worsening Factors: nothing Associated Symptoms: denies symptoms Allergies/Adverse Reactions: Allergies NO KNOWN ALLERGY Allergy (Verified 07/14/16 20:27) Home Medications: Ambulatory Orders Metformin HCl 1,000 mg PO BID 07/15/16 Furosemide [Lasix] 40 mg PO DAILY #30 tab 07/17/16 Lisinopril [Prinivil] 5 mg PO DAILY #30 tab 07/17/16 Potassium Chloride [Micro-K] 10 meq PO DAILY #30 cap 07/17/16 Levothyroxine Sodium [Levo-T] 25 mcg PO ACBK #30 tab 08/13/16 Polyethylene Glycol 3350 [Miralax] 1 pow PO 08/13/16 Permethrin 5% [Elimite] 1 bottle TOP ONCE #1 appli 09/06/16 Review of Systems - Review of Systems Constitutional: States: no symptoms reported. Denies: chills, diaphoresis, fever, malaise, weakness EENTM: States: no symptoms reported Respiratory: States: no symptoms reported Cardiology: States: no symptoms reported Gastrointestinal/Abdominal: States: abdominal pain. Denies: constipation, diarrhea, nausea, vomiting Genitourinary: States: no symptoms reported Musculoskeletal: States: no symptoms reported Skin: States: see HPI Neurological: States: no symptoms reported Endocrine: States: no symptoms reported Hematologic/Lymphatic: States: no symptoms reported Past Medical History (General) - Patient Medical History Hx Seizures: No Hx Stroke: No Hx Dementia: No Hx Asthma: No Hx of COPD: No Hx Cardiac Disorders: Yes Hx Congestive Heart Failure: Yes Hx Pacemaker: No Hx Hypertension: Yes Hx Thyroid Disease: No Hx Diabetes: Yes Hx Gastroesophageal Reflux: Yes Hx Renal Disease: No Hx Cancer: No Hx of HIV: No Hx Hepatitis C: No Hx MRSA: No - Vaccination History Hx Tetanus, Diphtheria Vaccination: No Hx Influenza Vaccination: No Hx Pneumococcal Vaccination: No - Social History Hx Tobacco Use: No Hx Chewing Tobacco Use: No Hx Alcohol Use: No Hx Substance Use: No Hx Substance Use Treatment: No Hx Depression: No Hx Physical Abuse: No Hx Emotional Abuse: No Hx Suspected Abuse: No - Female History Patient is a Female of Child Bearing Age (10 -59 yrs old): No Family Medical History - Family History Mother Family History: Unknown Hx Family Hypertension: Yes - mom Hx Family Diabetes: Yes - mom Physical Exam - Physical Exam General Appearance: Alert, Comfortable, No apparent distress, Well Developed, Well Groomed, Well Hydrated, Well Nourished Neck: non-tender, full range of motion, supple, normal inspection Respiratory: chest non-tender, lungs clear, normal breath sounds, no respiratory distress, no accessory muscle use Cardiovascular/Chest: regular rate, rhythm, no edema, no gallop, no JVD, no murmur Gastrointestinal/Abdominal: normal bowel sounds, non tender, soft, no organomegaly, no pulsatile mass Extremity: normal range of motion, non-tender, normal inspection, no pedal edema Neurologic: no motor/sensory deficits, alert, normal mood/affect, oriented x 3 Skin Exam: rash - generalized papules with extensive excorriations. Lymphatic: no adenopathy Progress - Progress Progress: 09/06/16 19:48 Labs show a slightly elevated bilirubin @ 1.5 but he has a history of cirrhosis. They also show he is a little dehydrated. His mild anemia is still present. Will give a liter of NS and a dose of IV protonix and see if that helps with his abd pain. His itching is most likely due to scabies. Will treat give script for treatment. 09/06/16 20:19 Patient reports no change in abd pain after Protonix. Will check pancreatic enzymes and get CT. - Results/Orders Results/Orders: Laboratory Tests 09/06/16 09/06/16 19:00 20:20 WBC 7.3 RBC 4.03 L Hgb 10.9 L Hct 33.7 L MCV 83.7 MCH 27.0 MCHC 32.4 L RDW 17.0 H Plt Count 210 MPV 9.0 Absolute Neuts (auto) 4.90 Absolute Lymphs (auto) 1.20 Absolute Monos (auto) 0.60 Absolute Eos (auto) 0.50 H Absolute Basos (auto) 0.10 Neutrophils % 67.3 Lymphocytes % 16.8 L Monocytes % 8.4 Eosinophils % 6.3 H Basophils % 1.2 ESR 50 H Sodium 135 Potassium 4.3 Chloride 105 Carbon Dioxide 21 Anion Gap 13.3 BUN 26 H Creatinine 1.37 H BUN/Creatinine Ratio 19.0 Random Glucose 165 H Serum Osmolality 278.6 Calcium 8.5 Total Bilirubin 1.6 H AST 30 ALT 32 Alkaline Phosphatase 510 H Serum Total Protein 8.0 Albumin 2.8 L Globulin 5.2 H Albumin/Globulin Ratio 0.5 L Amylase 47 Lipase 33 Urine Opiates Screen Negative Urine Barbiturates Negative Ur Phencyclidine Scrn Negative U Amphetamin/Meth Scrn Negative U Benzodiazepines Scrn Negative U Cocaine Metab Screen Negative U Cannabinoids Screen Negative Vital Signs - 24 hr 09/06/16 09/06/16 09/06/16 18:38 19:23 20:22 Temperature 99.1 F Pulse Rate [ 85 78 78 left arm] Respiratory 18 18 Rate Blood Pressure 176/95 168/97 159/96 [Left Arm] O2 Sat by Pulse 96 Oximetry - EKG/XRAY/CT CT Ordered: Yes - abd/pel: ascites and anascara, gallstones Departure - Departure Clinical Impression: Scabies, Anemia, chronic disease, Ascites controlled with medication Time of Disposition: 21:17 Disposition: Discharge to Home or Self Care Condition: Good Departure Forms: ED Discharge - Pt. Copy, Patient Portal Self Enrollment Instructions: DI for Scabies Diet: resume usual diet Activity: increase activity as tolerated Prescriptions: Permethrin 5% [Elimite] 1 bottle TOP ONCE #1 appli Home Medications: Ambulatory Orders Metformin HCl 1,000 mg PO BID 07/15/16 Furosemide [Lasix] 40 mg PO DAILY #30 tab 07/17/16 Lisinopril [Prinivil] 5 mg PO DAILY #30 tab 07/17/16 Potassium Chloride [Micro-K] 10 meq PO DAILY #30 cap 07/17/16 Levothyroxine Sodium [Levo-T] 25 mcg PO ACBK #30 tab 08/13/16 Polyethylene Glycol 3350 [Miralax] 1 pow PO 08/13/16 Permethrin 5% [Elimite] 1 bottle TOP ONCE #1 appli 09/06/16 Additional Instructions: Wash all bedding and clothing in Hot water
[2016-09-06] MEDS: methylPREDNISolone SODIUM SUC 125 MG/2 ML VIAL IV ONE (19:12)
[2016-09-06] MEDS: IBUPROFEN 200 MG TAB PO ONE (19:15)
[2016-09-06] MEDS: SODIUM CHLORIDE 0.9% 1000ML 1,000 ML IVS ONE (19:38)
[2016-09-06] MEDS ORDERED: SODIUM CHLORIDE 0.9% 10 ML VIAL ONE (19:40)
[2016-09-06] MEDS: PANTOPRAZOLE SODIUM IV 40 MG VIAL IV ONE (19:43)
--- NOTE | 2016-09-06 21:10 | CT ---
EXAM DESCRIPTION: Abdomen/Pelvis w/Contrast CLINICAL HISTORY: Upper/generalized abd pain COMPARISON: None Available TECHNIQUE: Contiguous axial images of the abdomen and pelvis were obtained after the administration of intravenous contrast followed by reconstruction images. FINDINGS: There is a left pleural fluid collection. Increased opacity in the left lower lung may represent atelectasis. There is atherosclerosis. There is free fluid in the abdomen and pelvis. There is atherosclerosis. Stranding of the subcutaneous fat could be secondary to anasarca. There are gallstones within the gallbladder. There is a small left renal cyst. The liver, spleen, pancreas and kidneys are otherwise within normal limits. There is no hydronephrosis or renal stones. Adrenal glands are within normal limits. Aorta is of normal caliber and tapering. There is no bowel obstruction. The appendix is within normal limits. There is no pericecal inflammation. IMPRESSION: Ascites, anasarca, left pleural fluid collection. Please correlate. Diffuse atherosclerosis. Cholelithiasis. If acute cholecystitis is clinically suspected correlation with a sonogram is recommended. Electronically signed by: Jorge Lloyd MD 09/06/2016 9:09 PM CDT
[2016-09-06 21:28] VITALS: BP 170/98; TEMP 97.9
== END 2016-09-06 21:28 | disposition home or self-care (01) ==
LOC: ER 18:22
DX: B86 Scabies (principal); R18.8 Other ascites; D63.8 Anemia in other chronic diseases classified elsewhere; I11.0 Hypertensive heart disease with heart failure; I50.9 Heart failure, unspecified; K21.9 Gastro-esophageal reflux disease without esophagitis; E11.9 Type 2 diabetes mellitus without complications; Z79.899 Other long term (current) drug therapy
CPT/HCPCS: 36415; 74177; 80053; 80307; 82150; 83690; 85025; 85651; J2930; J7030

== ENCOUNTER 2016-10-07 21:01 | Emergency (ER) | payer SELFPAY ==
[2016-10-08] MEDS ORDERED: ASPIRIN TABLET 325 MG TAB PO ONE (01:42)
[2016-10-08] MEDS: SODIUM CHLORIDE 0.9% (FLUSH) 10 ML SYG IV PRN ×2 (01:57→03:21)
--- NOTE | 2016-10-08 02:32 | RAD ---
EXAM: Single view chest. INDICATION: Chest pain. COMPARISON: Chest x-ray: 08/13/2016. 08/10/2016 FINDINGS: Cardiac silhouette: At the upper limit of normal in size Isa: Unremarkable. Lobar consolidation: None. Pleural effusion: None. Pneumothorax: None. Other: Again noted is scarring along the left lung base with mild tenting of the left hemidiaphragm. Bones: Unremarkable. Other: None. IMPRESSION: 1. No acute cardiopulmonary process. Electronically signed by: Jaime Elliott MD 10/08/2016 2:30 AM CDT
[2016-10-08] MEDS ORDERED: FUROSEMIDE INJ 100 MG/10 ML VIAL IV ONE (03:05)
[2016-10-08 03:33] VITALS: O2SAT 98
--- NOTE | 2016-10-08 03:37 | ED.PDOC ---
History of Present Illness - General Chief Complaint: General Stated Complaint: BLE hurting, itching, weak Time Seen by Provider: 10/08/16 01:42 Source: patient, RN notes reviewed, Vital Signs reviewed Exam Limitations: other - poor historian - History of Present Illness Initial Comments: Patient is a 61 y/o male who comes in with bilateral leg pain and swelling for 2 weeks. He does not have a primary care physician. His skin is very tight. The itching is generalized. Patient states he had cardiac surgery about a year and a half ago, but he does not know what they did. He was admitted to inpatient in June and had CHF exacerbation. Patient is not taking any medications as he has not seen a physician since being discharged on 07/17/2016. When asked why he has not followed up, he responds "I don't know." Timing/Duration: getting worse, other - 2 weeks Severity: moderate, severe Improving Factors: nothing Worsening Factors: other - walking Associated Symptoms: other - itching Allergies/Adverse Reactions: Allergies NO KNOWN ALLERGY Allergy (Verified 10/08/16 00:23) Home Medications: Ambulatory Orders Metformin HCl 1,000 mg PO BID 07/15/16 Furosemide [Lasix] 40 mg PO DAILY #30 tab 07/17/16 Lisinopril [Prinivil] 5 mg PO DAILY #30 tab 07/17/16 Potassium Chloride [Micro-K] 10 meq PO DAILY #30 cap 07/17/16 Levothyroxine Sodium [Levo-T] 25 mcg PO ACBK #30 tab 08/13/16 Polyethylene Glycol 3350 [Miralax] 1 pow PO 08/13/16 Permethrin 5% [Elimite] 1 bottle TOP ONCE #1 appli 09/06/16 Review of Systems - Review of Systems Constitutional: Denies: chills, diaphoresis, fever EENTM: States: no symptoms reported Respiratory: States: no symptoms reported Cardiology: States: edema Gastrointestinal/Abdominal: States: no symptoms reported Genitourinary: States: no symptoms reported Musculoskeletal: States: muscle pain, muscle stiffness Skin: States: other - itching Neurological: States: no symptoms reported Endocrine: States: no symptoms reported Hematologic/Lymphatic: States: no symptoms reported All other Systems: Reviewed and Negative Past Medical History (General) - Patient Medical History Hx Seizures: No Hx Stroke: No Hx Dementia: No Hx Asthma: No Hx of COPD: No Hx Cardiac Disorders: No Hx Congestive Heart Failure: No Hx Pacemaker: No Hx Hypertension: Yes Hx Thyroid Disease: No Hx Diabetes: Yes Hx Gastroesophageal Reflux: No Hx Renal Disease: No Hx Cancer: No Hx of HIV: No Hx Hepatitis C: No Hx MRSA: No Surgical History: other - Vaccination History Hx Tetanus, Diphtheria Vaccination: No Hx Influenza Vaccination: No Hx Pneumococcal Vaccination: No Immunizations Up to Date: No - Social History Hx Tobacco Use: No Hx Chewing Tobacco Use: No Hx Alcohol Use: No Hx Substance Use: No Hx Substance Use Treatment: No Hx Depression: No Feels Threatened In Home Enviroment: No Feels Threatened In a Relationship: No Hx Physical Abuse: No Hx Emotional Abuse: No Hx Suspected Abuse: No Family Medical History - Family History Mother Family History: Unknown Hx Family Hypertension: Yes - mom Hx Family Diabetes: Yes - mom Physical Exam - Physical Exam General Appearance: Alert, No apparent distress Ears, Nose, Throat: hearing grossly normal, normal ENT inspection Neck: full range of motion, supple Respiratory: lungs clear, normal breath sounds, no respiratory distress, no accessory muscle use Cardiovascular/Chest: regular rate, rhythm, no gallop, no murmur, other - lower extremity edema with lower leg tightness Gastrointestinal/Abdominal: normal bowel sounds, non tender, soft, no organomegaly, no pulsatile mass Extremity: normal range of motion, pedal edema Neurologic: alert, oriented x 3 Skin Exam: warm/dry, rash - papules on arms and legs Progress - Results/Orders Results/Orders: 10/07/16 10/08/16 10/08/16 23:58 00:00 02:11 Temperature 99.3 F Pulse Rate [ 93 H monitor] Respiratory 18 18 Rate Blood Pressure 165/100 [Left Arm] O2 Sat by Pulse 93 L 93 L Oximetry 10/08/16 03:00 Temperature Pulse Rate [ 89 monitor] Respiratory 18 Rate Blood Pressure 148/98 [Left Arm] O2 Sat by Pulse 98 Oximetry 10/08/16 01:42 IV Care:Saline Lock per Protoc QSHIFT Telemetry .ONCE Sodium Chloride 0.9% (Flush) [Saline Flush Syringe] 10 ml IV PRN PRN EKG Stat Pulse Ox Stat Laboratory Results WBC 8.1 K/mm3 (4.8-10.8) 10/08/16 02:10 RBC 4.25 M/mm3 (4.70-6.10) L 10/08/16 02:10 Hgb 11.8 gm/dL (14.0-18.0) L 10/08/16 02:10 Hct 36.2 % (42.0-52.0) L 10/08/16 02:10 MCV 85.2 fl (80.0-94.0) 10/08/16 02:10 MCH 27.7 pg (27.0-31.0) 10/08/16 02:10 MCHC 32.6 g/dL (33.0-37.0) L 10/08/16 02:10 RDW 18.2 % (11.5-14.5) H 10/08/16 02:10 Plt Count 179 K/mm3 (130-400) 10/08/16 02:10 MPV 9.0 fl (7.40-10.4) 10/08/16 02:10 Absolute Neuts (auto) 5.70 K/uL (1.8-6.8) 10/08/16 02:10 Absolute Lymphs (auto) 1.40 K/uL (1.0-3.4) 10/08/16 02:10 Absolute Monos (auto) 0.60 K/uL (0.2-0.8) 10/08/16 02:10 Absolute Eos (auto) 0.20 K/uL (0.0-0.4) 10/08/16 02:10 Absolute Basos (auto) 0.10 K/uL (0.0-0.1) 10/08/16 02:10 Neutrophils % 71.3 % (42.0-78.0) 10/08/16 02:10 Lymphocytes % 17.0 % (20.0-50.0) L 10/08/16 02:10 Monocytes % 8.0 % (2.0-9.0) 10/08/16 02:10 Eosinophils % 2.8 % (1.0-5.0) 10/08/16 02:10 Basophils % 0.9 % (0.0-2.0) 10/08/16 02:10 PT 12.5 SECONDS (9.4-12.5) 10/08/16 02:10 INR 1.110 10/08/16 02:10 PTT (SP) 33.5 SECONDS (25.1-36.5) 10/08/16 02:10 D-Dimer, Quantitative 716 ng/mL (0-230) H* 10/08/16 02:10 Sodium 137 mmol/L (135-145) 10/08/16 02:10 Potassium 4.0 mmol/L (3.6-5.0) 10/08/16 02:10 Chloride 107 mmol/L (101-111) 10/08/16 02:10 Carbon Dioxide 24 mmol/L (21-31) 10/08/16 02:10 Anion Gap 10.0 (12-18) L 10/08/16 02:10 BUN 23 mg/dL (7-18) H 10/08/16 02:10 Creatinine 1.09 mg/dL (0.6-1.3) 10/08/16 02:10 BUN/Creatinine Ratio 21.1 (10-20) H 10/08/16 02:10 Random Glucose 235 mg/dL (70-105) H 10/08/16 02:10 Serum Osmolality 285.1 mOsm/L (275-295) 10/08/16 02:10 Calcium 8.1 mg/dL (8.4-10.2) L 10/08/16 02:10 Magnesium 2.0 mg/dL (1.8-2.5) 10/08/16 02:10 Total Bilirubin 1.8 mg/dL (0.2-1.0) H 10/08/16 02:10 Direct Bilirubin 1.1 mg/dL (0-0.2) H 10/08/16 02:10 Indirect Bilirubin 0.7 mg/dL (0.2-0.8) 10/08/16 02:10 AST 26 IU/L (10-42) 10/08/16 02:10 ALT 25 IU/L (10-60) 10/08/16 02:10 Alkaline Phosphatase 502 IU/L (42-121) H 10/08/16 02:10 Creatine Kinase 81 IU/L (38-174) 10/08/16 02:10 CK-MB (CK-2) 3.3 ng/mL (0.0-4.4) 10/08/16 02:10 CK-MB (CK-2) % Not Reportable 10/08/16 02:10 Troponin I 0.07 ng/mL (0.01-0.05) H* 10/08/16 02:10 B-Natriuretic Peptide 2680.0 pg/ml (0-100) H* 10/08/16 02:10 Serum Total Protein 7.5 gm/dL (6.4-8.2) 10/08/16 02:10 Albumin 2.4 g/dl (3.2-5.5) L 10/08/16 02:10 Urine Color Yellow (Yellow) 10/08/16 02:10 Urine Appearance Clear (Clear) 10/08/16 02:10 Urine pH 6.0 (4.5-7.8) 10/08/16 02:10 Ur Specific [place] 1.025 (1.005-1.030) 10/08/16 02:10 Urine Protein >=300 mg/dL H 10/08/16 02:10 Urine Glucose (UA) 250 mg/dL (Negative) H 10/08/16 02:10 Urine Ketones Negative mg/dL (NEGATIVE) 10/08/16 02:10 Urine Blood Moderate (Negative) H 10/08/16 02:10 Urine Nitrite Negative 10/08/16 02:10 Urine Bilirubin Small (NEGATIVE) H 10/08/16 02:10 Urine Urobilinogen 4.0 mg/dL (0.2-1.0) H 10/08/16 02:10 Ur Leukocyte Esterase Negative (Negative) 10/08/16 02:10 Urine RBC 3-5 /hpf H 10/08/16 02:10 Urine WBC 0-1 /hpf 10/08/16 02:10 Ur Epithelial Cells 0 /hpf 10/08/16 02:10 Urine Bacteria Rare 10/08/16 02:10 Urine Opiates Screen Negative ng/mL (2000) 10/08/16 02:10 Urine Barbiturates Negative ng/mL (200) 10/08/16 02:10 Ur Phencyclidine Scrn Negative ng/mL (25) 10/08/16 02:10 U Amphetamin/Meth Scrn Negative ng/mL (1000) 10/08/16 02:10 U Benzodiazepines Scrn Negative ng/mL (200) 10/08/16 02:10 U Cocaine Metab Screen Negative ng/mL (300) 04/21/17 02:10 U Cannabinoids Screen Negative ng/mL (50) 10/08/16 02:10 - EKG/XRAY/CT EKG: Sinus - 95 bpm, no ST T wave changes, Abnormal Q waves - Leads V2, V3, V4, Unchanged from XRAY: chest - No acute process Departure - Departure Clinical Impression: Elevated troponin I level, Elevated d-dimer CHF (congestive heart failure) Qualifiers: Congestive heart failure type: systolic Congestive heart failure chronicity: acute on chronic Qualified Code(s): I50.23 - Acute on chronic systolic ( congestive) heart failure Time of Disposition: 03:47 Disposition: Transfer to Hospital Home Medications: Ambulatory Orders Metformin HCl 1,000 mg PO BID 07/15/16 Furosemide [Lasix] 40 mg PO DAILY #30 tab 07/17/16 Lisinopril [Prinivil] 5 mg PO DAILY #30 tab 07/17/16 Potassium Chloride [Micro-K] 10 meq PO DAILY #30 cap 07/17/16 Levothyroxine Sodium [Levo-T] 25 mcg PO ACBK #30 tab 08/13/16 Polyethylene Glycol 3350 [Miralax] 1 pow PO 08/13/16 Permethrin 5% [Elimite] 1 bottle TOP ONCE #1 appli 09/06/16 Transfer to Outside Facility - Transfer Information Accepting Provider:: Dr. Stewart Accepting Facility: [facility] Reason for Transfer: required specialist not available
[2016-10-08] MEDS ORDERED: METOPROLOL TARTRATE INJ 5 MG/5 ML VIAL IV ONE (04:02)
[2016-10-08 04:47] VITALS: BP 156/92; TEMP 98.6
== END 2016-10-08 04:20 | disposition short-term general hospital (02) ==
LOC: ER 21:01
DX: I11.0 Hypertensive heart disease with heart failure (principal); I50.23 Acute on chronic systolic (congestive) heart failure; E11.9 Type 2 diabetes mellitus without complications; R79.89 Other specified abnormal findings of blood chemistry
CPT/HCPCS: 36415; 71010; 80048; 80076; 80307; 81001; 82550; 82553; 83880; 84484; 85025; 85379; 85610; 85730; 93005; 94760; J1940

== ENCOUNTER 2016-12-03 15:19 | Inpatient (IN) | payer SELFPAY ==
[2016-12-03] MEDS ORDERED: ASPIRIN (CHEWABLE) 81 MG TAB PO ONE (15:29)
--- NOTE | 2016-12-03 15:39 | ED.PDOC ---
History of Present Illness - General Chief Complaint: Chest Pain/CO Stated Complaint: chest pain Time Seen by Provider: 12/03/16 15:27 Source: patient Exam Limitations: no limitations - History of Present Illness Initial Comments: Patient presents with chest pain for three days. It started suddenly, is mid- sternal, non-radiating, intermittent, no previous episodes. Worse with getting up and walking or exercising. Patient had CABG 2 years ago. He has NIDDM. Says he has had dyspnea on exertion. Has had some generalized itching recently that has been going on for several days. No other complaints. Timing/Duration: other - 3 days Severity: mild Improving Factors: rest Worsening Factors: movement Associated Symptoms: chest pain Allergies/Adverse Reactions: Allergies NO KNOWN ALLERGY Allergy (Verified 10/08/16 00:23) Home Medications: Ambulatory Orders Metformin HCl 1,000 mg PO BID 07/15/16 Furosemide [Lasix] 40 mg PO DAILY #30 tab 07/17/16 Lisinopril [Prinivil] 5 mg PO DAILY #30 tab 07/17/16 Potassium Chloride [Micro-K] 10 meq PO DAILY #30 cap 07/17/16 Levothyroxine Sodium [Levo-T] 25 mcg PO ACBK #30 tab 08/13/16 Polyethylene Glycol 3350 [Miralax] 1 pow PO 08/13/16 Permethrin 5% [Elimite] 1 bottle TOP ONCE #1 appli 09/06/16 Review of Systems - Review of Systems Constitutional: States: no symptoms reported EENTM: States: no symptoms reported Respiratory: States: see HPI Cardiology: States: see HPI, edema Gastrointestinal/Abdominal: States: no symptoms reported Genitourinary: States: no symptoms reported Musculoskeletal: States: no symptoms reported Skin: States: no symptoms reported Neurological: States: no symptoms reported Endocrine: States: no symptoms reported Hematologic/Lymphatic: States: no symptoms reported Past Medical History (General) - Patient Medical History Hx Seizures: No Hx Stroke: No Hx Dementia: No Hx Asthma: No Hx of COPD: No Hx Cardiac Disorders: No Hx Congestive Heart Failure: No Hx Pacemaker: No Hx Hypertension: Yes Hx Thyroid Disease: No Hx Diabetes: Yes Hx Gastroesophageal Reflux: No Hx Renal Disease: No Hx Cancer: No Hx of HIV: No Hx Hepatitis C: No Hx MRSA: No - Vaccination History Hx Tetanus, Diphtheria Vaccination: No Hx Influenza Vaccination: No Hx Pneumococcal Vaccination: No - Social History Hx Tobacco Use: No Hx Chewing Tobacco Use: No Hx Alcohol Use: No Hx Substance Use: No Hx Substance Use Treatment: No Hx Depression: No Hx Physical Abuse: No Hx Emotional Abuse: No Hx Suspected Abuse: No Family Medical History - Family History Mother Family History: Unknown Hx Family Hypertension: Yes - mom Hx Family Diabetes: Yes - mom Physical Exam - Physical Exam General Appearance: Alert Ears, Nose, Throat: normal ENT inspection Neck: non-tender, full range of motion, supple Respiratory: lungs clear Cardiovascular/Chest: tachycardia Gastrointestinal/Abdominal: normal bowel sounds, non tender, soft Back Exam: no CVA tenderness Extremity: other - trace bipedal edema Skin Exam: normal color Progress - Progress Progress: 12/03/16 18:10 EKG showed sinus tachycardia with no ST changes nor T wave inversions. No LBBB. Patient received ASA 324 mg po x one. CXR showed an area of mild atelectasis vs. new infiltrate but no evidence of CHF. BNP was 2180. Troponin negative. Patient was given Lasix 40 mg IV x one. Admitted for diuresis for mild CHF exacerbation. Laboratory Tests 12/03/16 12/03/16 12/03/16 15:49 15:49 15:49 WBC 7.4 RBC 4.09 L Hgb 11.8 L Hct 35.6 L MCV 87.0 MCH 28.8 MCHC 33.1 RDW 15.1 H Plt Count 213 MPV 9.1 Absolute Neuts (auto) 5.30 Absolute Lymphs (auto) 1.20 Absolute Monos (auto) 0.50 Absolute Eos (auto) 0.40 Absolute Basos (auto) 0.10 Neutrophils % 71.4 Lymphocytes % 15.6 L Monocytes % 6.8 Eosinophils % 4.9 Basophils % 1.3 PT 12.4 INR 1.100 PTT (SP) 32.7 Sodium 137 Potassium 3.7 Chloride 106 Carbon Dioxide 23 Anion Gap 11.7 L BUN 22 H Creatinine 1.23 BUN/Creatinine Ratio 17.9 Random Glucose 260 H Serum Osmolality 286.1 Calcium 8.3 L Total Bilirubin 1.3 H AST 24 ALT 24 Alkaline Phosphatase 470 H Creatine Kinase 87 CK-MB (CK-2) 4.4 CK-MB (CK-2) % Not Reportable Troponin I 0.05 B-Natriuretic Peptide 2180.0 H* Serum Total Protein 7.6 Albumin 2.4 L Globulin 5.2 H Albumin/Globulin Ratio 0.5 L Departure - Departure Clinical Impression: CHF (congestive heart failure) Disposition: Admit Patient Condition: Good Diet: other - as per hospitalist Activity: other - as per hospitalist Referrals: Radha You FNP [Primary Care Provider] - 1-2 Weeks Home Medications: Ambulatory Orders Metformin HCl 1,000 mg PO BID 07/15/16 Furosemide [Lasix] 40 mg PO DAILY #30 tab 07/17/16 Lisinopril [Prinivil] 5 mg PO DAILY #30 tab 07/17/16 Potassium Chloride [Micro-K] 10 meq PO DAILY #30 cap 07/17/16 Levothyroxine Sodium [Levo-T] 25 mcg PO ACBK #30 tab 08/13/16 Polyethylene Glycol 3350 [Miralax] 1 pow PO 08/13/16 Permethrin 5% [Elimite] 1 bottle TOP ONCE #1 appli 09/06/16
--- NOTE | 2016-12-03 16:02 | RAD ---
EXAM DESCRIPTION: Chest,1 View CLINICAL HISTORY: chest pain COMPARISON: October 08, 2016 FINDINGS: Single portable upright frontal view of the chest was obtained. Postsurgical changes of aortic valve replacement with median sternotomy wires. Cardiac silhouette shows borderline cardiomegaly without congestive failure. Increased opacification within the left lung base, atelectasis versus scarring versus early infiltrates. Please correlate clinically clinically. Right lung is clear. No significant pleural effusion. No pneumothorax. IMPRESSION: 1. Cardiomegaly without congestive failure. 2. Increased opacification within the left lung base, atelectasis versus scarring versus early infiltrate. Electronically signed by: Siddhartha Washington MD 12/03/2016 4:00 PM CDT
[2016-12-03] MEDS ORDERED: FUROSEMIDE INJ 40 MG/4 ML VIAL IV ONE ×2 (18:03→20:48)
[2016-12-03] MEDS ORDERED: diphenhydrAMINE HCL 25 MG CAP PO ONE ×2 (18:41→23:18)
--- NOTE | 2016-12-03 20:33 | HP ---
SUPERVISING PHYSICIAN: Errol Alfaro MD CHIEF COMPLAINT: Chest pressure. HISTORY OF PRESENT ILLNESS: Mr. Hernandez is a 61 year-old male patient presenting to the Emergency Room complaining of chest pressure type symptoms over the last 3 days. She noted that suddenly he started having midsternal nonradiating intermittent episodes over the last several days. He noted that the pain was worse when getting up and walking or any exercising. The patient has a history of coronary artery bypass graft 2 years previously and is a non-insulin dependent diabetic. He also notes that he has been having some dyspnea on exertion. Also of note is that he has had some generalized itching which has been present for several weeks. He also reports that he has not taking his medications to include lisinopril and Lasix for over 2 weeks as he has been without the medications due to financial difficulties. He also notes that he has been having some mild abdominal pains in the lower quadrant as well as some right-sided pain that has been intermittent. He denies any nausea, vomiting, diarrhea. Laboratory studies on admission to the Emergency Department shows he had a white count of 7.4 with a hemoglobin of 11.8 and hematocrit 35.6. Platelet count 213,000, no shift noted or differential. Coagulation studies were normal. Chemistries showed normal electrolytes but an elevated alkaline phosphatase as well as a total bilirubin and an elevated BNP. His troponin was within normal limits at 0.05. EKG in the Emergency Department prior to admission showed a sinus tachycardia but no ST changes or T-wave inversions were noted. Chest x-ray showed a mild atelectasis versus a new infiltrate but no evidence of overt congestive heart failure. Given his current symptomatology and chest pressure along with being noncompliant with his medication regimen and concerns for exacerbation of congestive heart failure with elevated BNP as well as the elevated alkaline phosphatase, the patient is now going to be admitted to the medical/surgical floor for further treatment and evaluation. PAST MEDICAL HISTORY: 1. Hypertension. 2. Diabetes mellitus type 2. 3. Coronary artery disease with a previous coronary artery bypass graft. 4. Hyperlipidemia. PAST SURGICAL HISTORY: 1. Cardiac surgery with a coronary artery bypass graft in November 2015. OUTPATIENT MEDICATIONS: Listed on previous medication regimen: 1. Potassium chloride 10 mEq daily. 2. Miralax 1 daily. 3. Metformin 1000 mg twice a day. 4. Lisinopril 5 mg daily. 5. Levothyroxine 25 mcg daily. 6. Lasix 40 mg daily. Note the patient has been without his Lasix and lisinopril for over 2 to 3 weeks. ALLERGIES: NO KNOWN DRUG ALLERGIES. SOCIAL HISTORY: The patient [place] alone. He has previously been seeing a physician in [facility] in [place] but is unable to drive there and is established with [facility]. He denies any tobacco , alcohol or illicit drug use. REVIEW OF SYSTEMS: CONSTITUTIONAL: He does have some fatigue but no fevers or chills. No unintentional weight loss but had some mild weight gain in the last several weeks. HEENT: Denies headaches, does note that he has had some changes in his vision in the last year or so but notes he has not had any nasal congestion, cough or sore throat. CARDIOVASCULAR: As noted in history of present illness. Chest pressure with some lower extremity edema with history of coronary artery disease and a recent coronary artery bypass graft within the last year. GASTROINTESTINAL: Notes he has been having some mild intermittent abdominal pains, more so in the lower quadrant on the right side, sometimes in the right upper are but he is unable to associate this with any specific patterns. He has had no nausea or vomiting but said he has had some diarrhea off and on but he associates that with taking Metformin. GENITOURINARY: He denies any dysuria, hematuria or other urinary symptoms. INTEGUMENTARY: Notes he has been having severe itching, pruritus, over the last month with some hyperpigmented areas where he has been scratching. NEUROLOGICAL: He denies any syncopal episodes, headaches or other neurological symptoms. PHYSICAL EXAMINATION: VITAL SIGNS: Initially in the Emergency Department, temperature was 98.8 with pulse 103, blood pressure 153/99 with respirations 20, saturation 96% on room air. On admission to the medical/surgical floor, temperature was 97.1, pulse 98 , blood pressure 130/78, respirations 18, saturation 95% on room air. Admission weight 71.7 kilograms which is up from previous admission in June of 2016, he was 65.8 kilograms. GENERAL: The patient is alert, appears to be in no acute distress but does appear obviously to no feel well. Notes he is having severe itching at time. HEENT: Tympanic membranes are clear bilaterally. Oropharynx is pink and moist. No lesions are noted. NECK: Supple, full range of motion with jugular venous distention noted bilaterally. CHEST: Lungs are clear to auscultation, just diminished slightly towards the bases, no rhonchi, rales, or wheezes. CARDIOVASCULAR: Cardiac rhythm on the monitor but no murmurs, rubs, or gallops noted. ABDOMEN: Soft with tenderness noted to the right lower quadrant but no rebound tenderness. Positive bowel sounds. EXTREMITIES: He had bilateral lower extremity edema, trace to 1+ but cyanosis or clubbing. LABORATORY: CBC on admission showed a white count of 7.4, hemoglobin 11.8, hematocrit 35.6, platelet count 213,000, differential showed to be within normal limits. Coagulation studies showed normal PT/PTT. Initial chemistries on admission showed normal electrolytes, potassium 3.7, BUN 23, creatinine 1.23 , glucose 260, calcium 8.3, magnesium 1.9. He had elevated bilirubin, additional studies to include a direct and indirect showed elevated bilirubin of 1.1 with 0.6 direct and normal indirect of 0.5 with elevated GGT level of 411. AST and ALT were both normal. Alkaline phosphatase elevated at 470. Review of previous records show that he has had a chronic elevated alkaline phosphatase as high as 510 in August of 2016. Troponin was normal at 0.05, CPK normal at 87. He did have elevated BNP of 2180. Amylase and lipase was negative. Urinalysis pending. RADIOGRAPHIC STUDIES: Chest x-ray in the Emergency Department and per radiology interpretation showed cardiomegaly without congestive heart failure and increased opacification within the left lung base, atelectasis versus scarring versus early infiltrative process. ASSESSMENT: 1. Acute on chronic congestive heart failure unknown etiology, suspect diastolic with current BNP on admission being elevated with the patient being noncompliant with the previous medication regiment to include his lisinopril and Lasix due to financial reasons. 2. Chest pain described as chest pressure likely related to exacerbation of chronic obstructive pulmonary disease with current troponin being negative and EKG showing no acute changes. 3. Elevated alkaline phosphatase at 470 with an elevated direct total bilirubin and GGT level indicative most likely of a hepatobiliary origin with some additional followup needed with concerns for possible choledocholithiasis with the patient having some mild abdominal pain versus secondary to hepatic congestion from acute exacerbation of congestive heart failure. 4. [id number] diabetes mellitus type 2 on Metformin but nod medically compliant with treatment plan with uncontrolled blood sugars with hemoglobin pending. 5. Hypertension with patient failing to comply with medication regimen and exacerbated by exacerbation of congestive heart failure. 6. Chronic pruritus possibly related to cholecystic process as evidenced by the elevated direct bilirubin and elevated GGT. PLAN: The patient is going to be admitted to the hospital under congestive heart failure orders. He was given 40 of Lasix initially in the Emergency Department, this will be continued with 40 of Lasix tonight on admission and 40 of Lasix b.i.d. for 24 hours with close monitoring. The patient given that he has been noncompliant with his medications due to financial reasons, will need a social consultation to assist with financial assistance to establish better care at [facility] as well as help with medication regimen in the future. We will go ahead and put him on a fluid restriction of 1500 cc 24 hours and make him n.p.o. tonight in anticipation of doing either an ultrasound of the liver tomorrow or a CT of the abdomen to further investigate the elevated GTT, alkaline phosphatase and mild abdominal pain. He does need an echocardiogram at some point and reinforcement of his medication regimen. I will continue with his lisinopril tonight and put him on a Nitro patch to assist with some of the symptomatology related to the congestive heart failure exacerbation. Will start him on a sliding scale insulin, he will be on telemetry. Will anticipate length of stay to be 2 to 3 days. Until the, we will continue to monitor the patient closely and treat appropriately. We will plan to do serial cardiac enzymes on him at 6 hours starting with 5 o' clock in the morning and repeat EKGs as needed. #[id number] [facility]
[2016-12-03] MEDS ORDERED: cloNIDine HCL 0.1 MG TAB PO ONE (20:47)
[2016-12-03] MEDS ORDERED: GLUCAGON INJ 1 MG VIAL SUBCU PRN (20:48)
[2016-12-03] MEDS ORDERED: NITROGLYCERIN 0.4 MG 25 EA TAB SL PRN (20:48)
[2016-12-03] MEDS ORDERED: MAGNESIUM HYDROXIDE 30 ML UD PO PRN (20:48)
[2016-12-03] MEDS ORDERED: SODIUM CHLORIDE 0.9% (FLUSH) 10 ML SYG IV PRN (20:48)
[2016-12-03] MEDS ORDERED: DEXTROSE 50% 25 GM/50 ML SYG IV PRN (20:48)
[2016-12-03] MEDS ORDERED: ACETAMINOPHEN 325 MG TAB PO PRN (20:48)
[2016-12-03] MEDS ORDERED: MORPHINE SULFATE INJ 10 MG/ML VIAL IV PRN (20:48)
[2016-12-03] MEDS ORDERED: ONDANSETRON INJ 4 MG/2 ML VIAL IV PRN (20:48)
[2016-12-03] MEDS ORDERED: NITROGLYCERIN 0.4 MG/HR PATCH TOP SCH (21:00)
[2016-12-03] MEDS ORDERED: IV SET AND CAP CHANGE INJ INJ SCH (21:00)
[2016-12-03] MEDS ORDERED: NITROGLYCERIN 0.2 MG/HR PATCH TD ONE (21:53)
[2016-12-03] MEDS: INSULIN LISPRO 100 UNITS/ML PEN SUBCU SCH (22:18)
[2016-12-03] MEDS: LISINOPRIL 10 MG TAB PO SCH (22:20)
[2016-12-03] MEDS: NITROGLYCERIN 0.2 MG/HR PATCH TD SCH (22:21)
[2016-12-03] MEDS: SODIUM CHLORIDE 0.9% (FLUSH) 10 ML SYG IV SCH (22:23)
--- NOTE | 2016-12-03 23:27 | PCM.CORE ---
Physician DVT/VTE - Nurse DVT Assessment & Total Each Risk Factor Represents 3 Points: Medical PT with Hx of GA, CHF, Severe infection/sepsis Each Risk Factor Represents 1 Point: Age 41-60 Each Risk Factor is 1 Point: Varicose Veins/Edema Legs DVT Assessment Score: 5 - 5 or more Very High Risk Treatments: Early Ambulation *, Sequential Compression Device Pharmacological: Enoxaparin 40mg SQ Daily
--- NOTE | 2016-12-04 06:26 | RAD ---
EXAM: Two view chest. INDICATION: Chest pain. COMPARISON: Chest x-ray: 12/03/2016. FINDINGS: Cardiac silhouette: At the upper limit of normal in size with changes of valve replacement Isa: Unremarkable. Lobar consolidation: None. Pleural effusion: None. Pneumothorax: None. Other: There is tenting of the left hemidiaphragm. Bones: Unremarkable. Other: None. IMPRESSION: 1. No acute cardiopulmonary process. Electronically signed by: Jaime Elliott MD 12/04/2016 6:25 AM CDT Workstation: [id number]
--- NOTE | 2016-12-04 07:16 | CT ---
EXAM: CT abdomen and pelvis with contrast. INDICATION: Abdominal pain, acute. TECHNIQUE: Contiguous axial CT images of the abdomen and pelvis. Intravenous contrast: Present. Oral contrast: Absent. DLP 607 mGy-cm. This exam was performed according to our departmental dose-optimization program, which includes automated exposure control, adjustment of the mA and/or kV according to patient size and/or use of iterative reconstruction technique. COMPARISON: 09/06/2016. FINDINGS: Lower chest: Partially imaged. Lung bases: There is a moderate size left pleural effusion Cardiac apex: Unremarkable. Solid abdominal viscera: Liver: Unremarkable. Gallbladder: Cholelithiasis Pancreas: Unremarkable. Spleen: Unremarkable. Adrenal glands: Unremarkable. Right kidney: No hydronephrosis. Left kidney: No hydronephrosis. Urinary bladder: Unremarkable. Abdominal aorta: Atherosclerotic calcifications Peritoneal: Free fluid: None. Free air: None. Other: No pathologic sized lymph nodes in the upper abdomen. Bowel: Stomach: Unremarkable. Small bowel: Unremarkable. Appendix: Unremarkable. Colon: Unremarkable. Rectum: Unremarkable. Prostate: Unremarkable. Bones: Unremarkable. IMPRESSION: Moderate size left pleural effusion. Cholelithiasis. Electronically signed by: Jaime Elliott MD 12/04/2016 7:14 AM CDT Workstation: Back&
[2016-12-04] MEDS: INSULIN LISPRO 100 UNITS/ML PEN SUBCU SCH ×4 (08:40→20:59)
[2016-12-04] MEDS: FUROSEMIDE INJ 40 MG/4 ML VIAL IV SCH ×2 (08:41→17:31)
[2016-12-04] MEDS: ENOXAPARIN SODIUM 40 MG/0.4 ML SYG SUBCU SCH (08:41)
[2016-12-04] MEDS: LISINOPRIL 10 MG TAB PO SCH (08:41)
[2016-12-04] MEDS: ASPIRIN (CHEWABLE) 81 MG TAB PO SCH (08:42)
[2016-12-04] MEDS: SODIUM CHLORIDE 0.9% (FLUSH) 10 ML SYG IV SCH ×2 (08:42→20:58)
[2016-12-04] MEDS ORDERED: POTASSIUM CHLORIDE 10 MEQ TAB PO ONE (08:44)
[2016-12-04] MEDS: POTASSIUM CHLORIDE 20 MEQ TAB PO SCH ×2 (08:46→17:31)
[2016-12-04] MEDS: REMOVE OLD PATCH TOP SCH (10:13)
[2016-12-04] MEDS: NITROGLYCERIN 0.2 MG/HR PATCH TD SCH ×2 (20:58→21:01)
[2016-12-05] MEDS ORDERED: LISINOPRIL 10 MG TAB PO SCH (09:00)
[2016-12-05] MEDS ORDERED: FUROSEMIDE 40 MG TAB PO SCH (09:00)
[2016-12-05] MEDS: ASPIRIN (CHEWABLE) 81 MG TAB PO SCH (09:25)
[2016-12-05] MEDS: POTASSIUM CHLORIDE 20 MEQ TAB PO SCH (09:25)
[2016-12-05] MEDS: INSULIN LISPRO 100 UNITS/ML PEN SUBCU SCH ×2 (09:25→12:25)
[2016-12-05] MEDS: ENOXAPARIN SODIUM 40 MG/0.4 ML SYG SUBCU SCH (09:26)
[2016-12-05] MEDS: SODIUM CHLORIDE 0.9% (FLUSH) 10 ML SYG IV SCH (09:26)
[2016-12-05] MEDS: REMOVE OLD PATCH TOP SCH (09:34)
--- NOTE | 2016-12-05 10:12 | PN ---
DATE: 12-04-16 SUBJECTIVE: The patient is feeling better this morning after diuresis with Lasix last night, approximately 5 liters since admission. His shortness of breath is improved and his edema has resolved. He does continue to have some mild right upper quadrant pain but he says it has been going and going for months. Blood sugars still need to be better controlled as well as he needs to be well controlled in regards to his blood pressure medication regimen. OBJECTIVE: VITAL SIGNS: Temperature 98.7, pulse 80, blood pressure 145/68, respirations 18 , saturation 97% on room air. I&Os show a negative balance of 5080 with 120 in, 5200 out, weight 67.5 kg which is down from admission of 71.5 kg. LUNGS clear to auscultation, diminished towards the bases. No rhonchi or wheezing noted. HEART regular rate and rhythm. ABDOMEN soft, non-tender, positive bowel sounds. EXTREMITIES: No cyanosis, clubbing, or edema. NEUROLOGIC: Alert and oriented x 3. LABORATORY: White count remains within normal limits at 7.2, hematocrit 12.1, hemoglobin 35.8, platelet count 212,000, differential shows to be without a shift. Chemistries show electrolytes to be within normal limits except for a low potassium of 3.2, BUN 23, creatinine 1.19. Glucoses have ranged from 112 to 303. Bilirubin remains elevated at 1.8 as well as alkaline phosphatase at 480. Repeat CPK shows to be normal as well as troponin remains at 0.05. Urinalysis showed 100 protein with small amount of blood, otherwise within normal limits. RADIOLOGY: Repeat chest x-ray 2 view today per radiology interpretation shows no acute cardiopulmonary processes. CT of the abdomen and pelvis with contrast and per radiology interpretation noted a moderate sized left pleural effusion with cholelithiasis. ASSESSMENT: 1. Acute on chronic congestive heart failure unknown etiology, suspect diastolic component with current BNP on admission being elevated with the patient being noncompliant with the previous medication regiment to include his lisinopril and Lasix due to financial difficulties. 2. Chest pain described as chest pressure felt to be related to exacerbation of congestive heart failure with troponin being negative and EKG showing no acute changes with patient being without any chest pains since admission and treatment and initiation. 3. Elevated alkaline phosphatase at 470 with an elevated direct total bilirubin and GGT level indicative most likely of a hepatobiliary origin with CT this morning showing cholelithiasis with patient continuing to have some mild epigastric discomfort at times. Also felt to be possibly exacerbated by hepatic congestion from acute exacerbation of congestive heart failure. 4. Fxk-fkgaoyy-xslinifne diabetes mellitus type 2 on Metformin but not medically compliant with treatment plan with uncontrolled blood sugars with hemoglobin A1c pending. 5. Hypertension with patient failing to comply with medication regimen and exacerbated by exacerbation of congestive heart failure. 6. Chronic pruritus possibly related to cholecystic process as evidenced by the elevated direct bilirubin and elevated GGT. 7. Moderate pleural effusion on left side as noted on CT, likely secondary to exacerbation of congestive heart failure. PLAN: At this point, we will continue with plan of care with Lasix today, 40 mg twice and then resume his Lasix 40 mg once daily in the morning. We will plan to replace his potassium with p.o. replacement and monitor closely. He remains on fluid restriction no less than 1500 cc today. He did have a CT of the abdomen that did show cholelithiasis, otherwise was unremarkable. At some point after discharge and prior to discharge, he will need an ultrasound of his liver to further evaluate the biliary system with outpatient management of the right upper quadrant pain and cholelithiasis with surgical reference either prior to admission or at time of discharge. Until the, we will continue to monitor the patient closely and treat appropriately. #[id number] [facility]
[2016-12-05 10:30] VITALS: O2SAT 95
[2016-12-05 13:36] VITALS: BP 145/82; TEMP 98
--- NOTE | 2016-12-06 10:21 | DS ---
SUPERVISING PHYSICIAN: Errol Alfaro MD DISCHARGE DIAGNOSIS: 1. Acute on chronic congestive heart failure of unknown etiology, suspect diastolic component with current BNP on admission being elevated without any records for review of current echocardiogram with the patient being noncompliant with his previous medication regiment to include his lisinopril and Lasix due to financial difficulties, showing improvement after reinitiation of lisinopril, Lasix and aggressive diuresis. 2. Chest pain, initially described as chest pressure felt to be related to exacerbation of congestive heart failure with troponin being negative and EKG showing no acute changes with patient being without any chest pains since admission and treatment and initiation, felt to be possibly related to hepatic engorgement from exacerbation of congestive heart failure and possibly underlying cholelithiasis symptomatically. 3. Elevated alkaline phosphatase at 470 with an elevated direct total bilirubin and GGT level, indicative most likely of a hepatobiliary origin with CT showing cholelithiasis with patient continuing to have some mild epigastric pain, but prior discharge, pain resolved. It was felt the pain was exacerbated by the underlying hepatic congestion from acute exacerbation of congestive heart failure, but continuation of followup in outpatient setting is warranted to further rule out any cholelithiasis or hepatobiliary abnormalities. 4. Vea-qufisdq-csgszydev diabetes mellitus, type 2, on metformin but not medically compliant with treatment plan with uncontrolled blood sugars with hemoglobin A1c of 10.7. 5. Hypertension with patient failing to comply with medication regimen and exacerbated by exacerbation of congestive heart failure, showing improvement after reinitiation of medication regimen. 6. Chronic pruritus, possibly related to cholecystic process as evidenced by the elevated direct bilirubin and elevated GGT. 7. Moderate pleural effusion on left side as noted on CT, likely secondary to exacerbation of congestive heart failure. 8. Hypothyroidism, on supplementation. HISTORY OF PRESENT ILLNESS: Mr. Hernandez is a 61-year-old male patient presenting to the Emergency Room complaining of chest pressure type symptoms over the prior 3 days. He noted that he suddenly started having midsternal nonradiating intermittent episodes over the last several days. He noted that the pain was worse when getting up and walking or any exercising. The patient has a history of coronary artery bypass graft 2 years previously and is a non-insulin dependent diabetic. He also noted that he has been having some dyspnea on exertion. Also of note is that he has had some generalized itching which has been present for several weeks. He also reported that he has not been taking his medications to include lisinopril and Lasix for over 2 weeks as he has been without the medications due to financial difficulties. He also noted that he had been having some mild abdominal pains in the lower quadrant as well as some right-sided pain that has been intermittent. He denied any nausea, vomiting, diarrhea. He was admitted in stable condition. LABORATORY: CBC on admission showed a normal white count of 7.4, at discharge was 7.9. Hemoglobin and hematocrit were stable at 12.3 and 37.8 at discharge. Platelet count 224,000. Differential within normal limits. Coagulation studies showed normal PT and PT-T. Chemistries on admission showed normal electrolytes with BUN 22, creatinine 1.23, glucose 260, calcium 8.3, magnesium 1.9, total bilirubin 1.3 with repeat total bilirubin 1.1 with elevated direct bilirubin 0.6 and indirect 0.5 with elevated GGT of 411. AST and ALT within normal limits. Alkaline phosphatase elevated at 470. Troponin 0.05. BNP 2180 with amylase and lipase being within normal limits. Repeat troponin the day before discharge on 12/04/16 was 0.05. The patient was without any chest pains. Prior to discharge and after initiation of treatment with fluids with Lasix as well with diuresis, the patient showed a normal sodium with low potassium of 3.1 and he was on potassium replacement. BUN 26, creatinine 1.1. Glucoses were fairly erratic, ranging from 120 to 303. Total bilirubin remained elevated at 1.1 as well as alkaline phosphatase of 410. All other liver functions within normal limits. Urinalysis showed 100 protein with small amount of blood. Otherwise, within normal limits. MICROBIOLOGY: No specimens submitted. RADIOLOGY: Chest x-ray prior to admission per radiologic interpretation showed cardiomegaly without congestive failure, increased opacification in the left lung, atelectasis versus early infiltrative process. Repeat chest x-ray on per radiologic interpretation after initiation of treatment with Lasix and diuresis showed unremarkable chest with no acute cardiopulmonary processes noted. He also had abdominopelvic CT after admission with contrast and per radiologic interpretation, there was note of moderate left pleural effusion with cholelithiasis, no mention of the biliary system was in the report. Please see that final report for full details. HOSPITAL COURSE: Mr. Hernandez is a 61-year-old, male who was admitted as noted in history of present illness for exacerbation of congestive heart failure. He did have some chest pains reportedly noted as chest pressure, but this resolved prior to admission to the Medical/Surgical Floor and at discharge , he was without any chest pain. He was started on Lasix, lisinopril and metformin. He did show good results from the Lasix with diuresing near 10 liters of fluid with his weight changing from 67.5 on admission to 63.5 prior to discharge. Vital signs remained stable. Initially on admission his blood pressure was 130/71 and at discharge was 145/82. Heart rate was 74 at discharge. Temperature was afebrile with T-max being 98.5. Saturations were 95 % on room air at discharge. He was no longer having any abdominal pains after diuresis and was able to tolerate diet with no nausea or vomiting or any diarrhea. It was felt he was clinically stable enough to be discharged to have close clinical followup in the outpatient setting. PLAN: Mr. Hernandez was discharged on 12/05/16 with instructions to establish with [facility] to assist with ongoing medical management of his congestive heart failure, the elevated alkaline phosphatase with need for ultrasound to further rule out any pathology requiring future surgical processes in regards to elevated bilirubin and alkaline phosphatase. He was told to resume his home medications as instructed and start any new prescriptions as directed and to return to the hospital if he had no improvement in his symptoms or other concerning symptoms. He was told to call [facility] on Tuesday to establish a followup as well as he will need cardiac followup as he has congestive heart failure and has had a recent exacerbation. The patient was encouraged go get his medications and told that all his medications were under $4 at [facility] which the patient was apparently unaware that he could get these medications at that cost. The patient was educated on the fact that he needs to check blood sugar on a regular basis and keep a log to take with him to the clinic once he went to followup for better management of his diabetes. Prescriptions included refills for: 1. Nitro tablets 0.4 mg 1 sublingual q.5 minutes as needed times 3 for chest pains, #1 bottle. 2. Aspirin 81 mg daily, #60. 3. Lasix 40 mg daily, #30. 4. Levothyroxine 25 mcg daily at breakfast, #30. 5. Lisinopril 5 mg daily, #30. 6. Magnesium hydroxide for constipation as needed, 30 mL daily. 7. Metformin 100 mg twice daily, #60. 8. MiraLAX 1 daily, #30, as needed for constipation. 9. Micro-K 10 mEq daily, #30. Diet is ADA as tolerated. Activity as tolerated. Condition on discharge was stable and improved. #[id number] [facility]
== END 2016-12-05 13:00 | disposition home or self-care (01) | DRG 293 ==
LOC: ER 15:19 → MS 20:31 → OBSVTOIN 12-04 16:26
PROVIDERS: ADMIT Nurse Practitioner Family; ATTEND Nurse Practitioner Family
PROC: BW21YZZ Computerized Tomography (CT Scan) of Abdomen and Pelvis using Other Contrast (ICD-10-PCS; principal; 2016-12-04)
DX: I11.0 Hypertensive heart disease with heart failure (principal); I50.33 Acute on chronic diastolic (congestive) heart failure; E87.6 Hypokalemia; Z91.120 Patient's intentional underdosing of medication regimen due to financial hardship; T50.1X6A Underdosing of loop [high-ceiling] diuretics, initial encounter; T46.4X6A Underdosing of angiotensin-converting-enzyme inhibitors, initial encounter; R74.8 Abnormal levels of other serum enzymes; K80.20 Calculus of gallbladder without cholecystitis without obstruction; E78.5 Hyperlipidemia, unspecified; E11.65 Type 2 diabetes mellitus with hyperglycemia; L29.9 Pruritus, unspecified; E03.9 Hypothyroidism, unspecified; Z79.899 Other long term (current) drug therapy; Z79.84 Long term (current) use of oral hypoglycemic drugs; Z95.1 Presence of aortocoronary bypass graft; Y92.009 Unspecified place in unspecified non-institutional (private) residence as the place of occurrence of the external cause

== ENCOUNTER 2017-01-13 23:06 | Emergency (ER) | payer SELFPAY ==
[2017-01-13] MEDS ORDERED: NITROGLYCERIN 0.4 MG 25 EA TAB SL ONE ×2 (23:08→23:12)
[2017-01-13] MEDS ORDERED: ASPIRIN TABLET 325 MG TAB ONE (23:08)
[2017-01-13] MEDS ORDERED: ASPIRIN TABLET 325 MG TAB PO ONE (23:12)
[2017-01-13] MEDS ORDERED: SODIUM CHLORIDE 0.9% (FLUSH) 10 ML SYG IV PRN (23:12)
[2017-01-13] MEDS ORDERED: ONDANSETRON INJ 4 MG/2 ML VIAL IV ONE (23:12)
--- NOTE | 2017-01-13 23:36 | RAD ---
EXAM DESCRIPTION: Chest,1 View CLINICAL HISTORY: 61 years Male chest pain COMPARISON: 12/04/2016 FINDINGS: Cardiac size is stable. There has been resolution of atelectasis in the retrocardiac region on the left as compared to the previous study. No new area of infiltrate is noted. Stomach is mildly distended. No pneumothorax. Median sternotomy wires are present. IMPRESSION: No acute abnormality is identified. Electronically signed by: Jumana Hooper 01/13/2017 11:35 PM CDT
[2017-01-14] MEDS ORDERED: ONDANSETRON INJ 4 MG/2 ML VIAL ONE (00:58)
[2017-01-14] MEDS ORDERED: INSULIN, REG.(HUMAN) 100 U/ML VIAL IV ONE (01:20)
[2017-01-14] MEDS ORDERED: BUMETANIDE 0.25 MG/ML VIAL IV ONE (01:27)
[2017-01-14] MEDS ORDERED: INSULIN, REG.(HUMAN) 100 U/ML VIAL SUBCU ONE (01:40)
[2017-01-14] MEDS ORDERED: NITROGLYCERIN 0.4 MG/HR PATCH TOP ONE (01:41)
--- NOTE | 2017-01-14 01:47 | ED.PDOC ---
History of Present Illness - General Chief Complaint: Chest Pain/NM Stated Complaint: chest pains Time Seen by Provider: 01/14/17 01:17 Source: patient Exam Limitations: no limitations - History of Present Illness Initial Comments: Humphrey Hernandez 61 y/o male with history of DM2 and cad s/p cabg stated that he had chest discomfort which started tonight then as he was about to go to sleep his symptoms got worse with sob decided to drive himself to emergency room.He have not been compliant with all his medicationss Timing/Duration: 4-6 hours Severity: moderate Location: central Activities at Onset: rest Prior Chest Pain/Cardiac Workup: cardiac cath, cardiolye scan, heart attack, other - CABG Worsening Factors: nothing Nitro Today/Relief: 0.4 mg x 1, provided by ED Aspirin Treatment Today: 325 mg x 1, provided by ED Associated Symptoms: shortness of breath Allergies/Adverse Reactions: Allergies NO KNOWN ALLERGY Allergy (Verified 10/08/16 00:23) Home Medications: Ambulatory Orders Aspirin [Baby Aspirin] 81 mg PO DAILY 12/05/16 Furosemide [Lasix] 40 mg PO DAILY #30 tab 12/05/16 Levothyroxine Sodium [Levo-T] 25 mcg PO ACBK #30 tab 12/05/16 Lisinopril [Prinivil] 5 mg PO DAILY #30 tab 12/05/16 Magnesium Hydroxide [Milk Of Magnesia] 30 ml PO DAILY PRN 12/05/16 Metformin HCl 1,000 mg PO BID #60 tab 12/05/16 Nitroglycerin 0.4 mg Tab [Nitrostat] 1 ea SL Q5MIN PRN #1 bottle 12/05/16 Polyethylene Glycol 3350 [Miralax] 1 pow PO DAILY #30 pack 12/05/16 Potassium Chloride [Micro-K] 10 meq PO DAILY #30 cap 12/05/16 Review of Systems - Review of Systems Constitutional: States: no symptoms reported EENTM: States: no symptoms reported Respiratory: States: see HPI Cardiology: States: see HPI Gastrointestinal/Abdominal: States: no symptoms reported Genitourinary: States: no symptoms reported Musculoskeletal: States: no symptoms reported Skin: States: no symptoms reported Neurological: States: no symptoms reported Past Medical History (General) - Patient Medical History Hx Seizures: No Hx Stroke: No Hx Dementia: No Hx Asthma: No Hx of COPD: No Hx Cardiac Disorders: Yes - hx NM a year ago Hx Congestive Heart Failure: Yes Hx Pacemaker: No Hx Hypertension: Yes Hx Thyroid Disease: No Hx Diabetes: Yes Hx Gastroesophageal Reflux: No Hx Renal Disease: No Hx Cancer: No Hx of HIV: No Hx Hepatitis C: No Hx MRSA: No Surgical History: coronary bypass surgery - december/2015, other - Vaccination History Hx Tetanus, Diphtheria Vaccination: No Hx Influenza Vaccination: No Hx Pneumococcal Vaccination: No - Social History Hx Tobacco Use: No Hx Chewing Tobacco Use: No Hx Alcohol Use: Yes Hx Substance Use: No Hx Substance Use Treatment: No Hx Depression: No Hx Physical Abuse: No Hx Emotional Abuse: No Hx Suspected Abuse: No - Activities of Daily Living Patient Lives Alone: No - children Family Medical History - Family History Mother Family History: Unknown Hx Family Hypertension: Yes - mom Hx Family Diabetes: Yes - mom Physical Exam - Physical Exam General Appearance: Alert, Comfortable, No apparent distress Eyes, Ears, Nose, Throat Exam: PERRL/EOMI, normal ENT inspection Neck: non-tender, full range of motion, supple Respiratory: chest non-tender, lungs clear, normal breath sounds, no respiratory distress Cardiovascular/Chest: normal peripheral pulses, regular rate, rhythm, no gallop , no murmur Peripheral Pulses: radial,right: 1+, radial,left: 1+ Gastrointestinal/Abdominal: normal bowel sounds, non tender, soft, no organomegaly Extremity: normal range of motion, pedal edema - 1+ bilaterally Neurologic: no motor/sensory deficits, alert, oriented x 3 Skin Exam: normal color, warm/dry Lymphatic: no adenopathy Progress - Progress Progress: 01/14/17 01:52 Vital Signs - 8 hr 01/13/17 01/13/17 01/13/17 23:11 23:14 23:26 Temperature 97.6 F Pulse Rate 118 H Pulse Rate [ 118 H 118 H left] Respiratory 22 18 Rate Blood Pressure 170/115 [left] O2 Sat by Pulse 94 L 90 L Oximetry 01/14/17 00:06 Temperature Pulse Rate Pulse Rate [ 86 left] Respiratory 20 Rate Blood Pressure 153/91 [left] O2 Sat by Pulse 97 Oximetry 01/13/17 23:12 IV Care:Saline Lock per Protoc QSHIFT Telemetry .ONCE Sodium Chloride 0.9% (Flush) [Saline Flush Syringe] 10 ml IV PRN PRN 01/13/17 23:15 B-TYPE NATRIURETIC PEPTIDE/BNP Stat CARDIAC PANEL,ER Stat 01/14/17 01:45 TROPONIN-I Stat 01/14/17 21:00 Simvastatin [Zocor] 40 mg PO BEDTIME Laboratory Results - last 24 hr 01/13/17 23:15 WBC 8.7 RBC 4.87 Hgb 13.9 L Hct 41.2 L MCV 84.7 MCH 28.5 MCHC 33.7 RDW 13.9 Plt Count 232 MPV 9.5 Absolute Neuts (auto) 5.40 Absolute Lymphs (auto) 1.70 Absolute Monos (auto) 0.50 Absolute Eos (auto) 1.00 H Absolute Basos (auto) 0.10 Neutrophils % 61.7 Lymphocytes % 19.7 L Monocytes % 6.3 Eosinophils % 11.1 H Basophils % 1.2 PT 10.3 INR 0.910 PTT (SP) 37.1 H Sodium 132 L Potassium 4.7 Chloride 100 L Carbon Dioxide 23 Anion Gap 13.7 BUN 34 H Creatinine 1.36 H BUN/Creatinine Ratio 25.0 H Random Glucose 537 H* Serum Osmolality 296.5 H Calcium 9.1 Magnesium 2.0 Creatine Kinase 60 CK-MB (CK-2) 4.2 Troponin I 0.05 B-Natriuretic Peptide 966.0 H* - EKG/XRAY/CT EKG: Sinus, Tachy, LVH, nonspecific ST T wave Chg Comments: Heart rate 117 lad XRAY: chest - no acute abnormality Departure - Departure Clinical Impression: Chest discomfort, NSTEMI (non-ST elevated myocardial infarction), Diabetes 1.5 , managed as type 1, Non compliance w medication regimen CHF, chronic Qualifiers: Congestive heart failure type: combined Qualified Code(s): I50.42 - Chronic combined systolic (congestive) and diastolic (congestive) heart failure Time of Disposition: 06:16 - D/W Dr. Baldemar Noguera -ER URS Disposition: Transfer to Hospital Condition: Fair Departure Forms: ED Discharge - Pt. Copy, Patient Portal Self Enrollment Referrals: Radha You FNP [Primary Care Provider] - 1-2 Weeks Home Medications: Ambulatory Orders Aspirin [Baby Aspirin] 81 mg PO DAILY 12/05/16 Furosemide [Lasix] 40 mg PO DAILY #30 tab 12/05/16 Levothyroxine Sodium [Levo-T] 25 mcg PO ACBK #30 tab 12/05/16 Lisinopril [Prinivil] 5 mg PO DAILY #30 tab 12/05/16 Magnesium Hydroxide [Milk Of Magnesia] 30 ml PO DAILY PRN 12/05/16 Metformin HCl 1,000 mg PO BID #60 tab 12/05/16 Nitroglycerin 0.4 mg Tab [Nitrostat] 1 ea SL Q5MIN PRN #1 bottle 12/05/16 Polyethylene Glycol 3350 [Miralax] 1 pow PO DAILY #30 pack 12/05/16 Potassium Chloride [Micro-K] 10 meq PO DAILY #30 cap 12/05/16 Transfer to Outside Facility - Transfer Information Accepting Provider:: Dr. Baldemar REED Md Accepting Facility: [facility] Reason for Transfer: required specialist not available
[2017-01-14] MEDS ORDERED: SIMVASTATIN 20 MG TAB ONE (02:04)
[2017-01-14 04:53] VITALS: BP 133/78; O2SAT 96
[2017-01-14 05:34] VITALS: TEMP 97.6
[2017-01-14] MEDS ORDERED: SIMVASTATIN 20 MG TAB PO SCH (21:00)
== END 2017-01-14 05:20 | disposition short-term general hospital (02) ==
LOC: ER 23:06
DX: I21.4 Non-ST elevation (NSTEMI) myocardial infarction (principal); E10.9 Type 1 diabetes mellitus without complications; I11.0 Hypertensive heart disease with heart failure; I50.42 Chronic combined systolic (congestive) and diastolic (congestive) heart failure; I25.2 Old myocardial infarction; Z91.14 Patient's other noncompliance with medication regimen; Z95.1 Presence of aortocoronary bypass graft; Z79.82 Long term (current) use of aspirin; Z79.899 Other long term (current) drug therapy

== ENCOUNTER 2017-02-22 12:47 | Emergency (ER) | payer SELFPAY ==
--- NOTE | 2017-02-22 12:53 | ED.PDOC ---
History of Present Illness - General Chief Complaint: Cardiovascular Problem Stated Complaint: chest pain Time Seen by Provider: 02/22/17 12:52 Source: patient Exam Limitations: no limitations - History of Present Illness Initial Comments: Humphrey Morton 61 y/o male stated he had been having on and off sharp chest pain non radiating with sob for the last 4 days and getting worse stated have not taken hi medications regularly stating his ss income not enough to pay for his medications.He had CABG in December 2015 after a heart attack. Timing/Duration: getting worse, intermittent, other - 4 days ago Severity: moderate Location: central Activities at Onset: activity Prior Chest Pain/Cardiac Workup: cardiac cath, cardiolye scan, echocardiography , heart attack Improving Factors: other - non compliant with meds Nitro Today/Relief: 0.4 mg x 1 Aspirin Treatment Today: provided by ED Associated Symptoms: chest pain, shortness of breath Allergies/Adverse Reactions: Allergies NO KNOWN ALLERGY Allergy (Verified 02/22/17 13:02) Home Medications: Ambulatory Orders Aspirin [Baby Aspirin] 81 mg PO DAILY 12/05/16 Furosemide [Lasix] 40 mg PO DAILY #30 tab 12/05/16 Levothyroxine Sodium [Levo-T] 25 mcg PO ACBK #30 tab 12/05/16 Lisinopril [Prinivil] 5 mg PO DAILY #30 tab 12/05/16 Magnesium Hydroxide [Milk Of Magnesia] 30 ml PO DAILY PRN 12/05/16 Metformin HCl 1,000 mg PO BID #60 tab 12/05/16 Nitroglycerin 0.4 mg Tab [Nitrostat] 1 ea SL Q5MIN PRN #1 bottle 12/05/16 Polyethylene Glycol 3350 [Miralax] 1 pow PO DAILY #30 pack 12/05/16 Potassium Chloride [Micro-K] 10 meq PO DAILY #30 cap 12/05/16 Review of Systems - Review of Systems Constitutional: States: no symptoms reported Respiratory: States: see HPI, short of breath Cardiology: States: see HPI, chest pain Gastrointestinal/Abdominal: States: no symptoms reported Genitourinary: States: no symptoms reported Musculoskeletal: States: no symptoms reported Past Medical History (General) - Patient Medical History Hx Seizures: No Hx Stroke: No Hx Dementia: No Hx Asthma: No Hx of COPD: No Hx Cardiac Disorders: Yes - hx ID a year ago Hx Congestive Heart Failure: Yes Hx Pacemaker: No Hx Hypertension: Yes Hx Thyroid Disease: No Hx Diabetes: Yes Hx Gastroesophageal Reflux: No Hx Renal Disease: No Hx Cancer: No Hx of HIV: No Hx Hepatitis C: No Hx MRSA: No Surgical History: coronary bypass surgery - Vaccination History Hx Tetanus, Diphtheria Vaccination: No Hx Influenza Vaccination: No Hx Pneumococcal Vaccination: No - Social History Hx Tobacco Use: No Hx Chewing Tobacco Use: No Hx Alcohol Use: Yes Hx Substance Use: No Hx Substance Use Treatment: No Hx Depression: No Hx Physical Abuse: No Hx Emotional Abuse: No Hx Suspected Abuse: No - Activities of Daily Living Patient Lives Alone: Yes - daughter lives in town Family Medical History - Family History Mother Family History: Unknown Hx Family Hypertension: Yes - mom Hx Family Diabetes: Yes - mom Physical Exam - Physical Exam General Appearance: Alert, Anxious, No apparent distress Eyes, Ears, Nose, Throat Exam: normal ENT inspection Neck: non-tender, supple Respiratory: chest non-tender, lungs clear Cardiovascular/Chest: normal peripheral pulses, no gallop, no murmur, tachycardia - heart rate 107 Peripheral Pulses: radial,right: 1+, radial,left: 1+, dorsalis pedis,right: 1+, dorsalis pedis,left: 1+ Gastrointestinal/Abdominal: non tender, soft, no organomegaly Extremity: normal range of motion, no pedal edema, no calf tenderness Neurologic: alert, oriented x 3 Skin Exam: normal color, warm/dry Lymphatic: no adenopathy Progress - Progress Progress: 02/22/17 13:37 Last Vital Signs Temp Pulse 101 H 02/22/17 13:12 Resp 16 02/22/17 13:12 BP 176/97 02/22/17 13:12 Pulse Ox 94 L 02/22/17 13:12 - Results/Orders Results/Orders: Vital Signs - 8 hr 02/22/17 02/22/17 02/22/17 12:52 12:53 12:59 Pulse Rate 109 H Pulse Rate [ 109 H Apical] Respiratory 16 24 Rate Blood Pressure 165/101 165/101 [Left Arm] O2 Sat by Pulse 95 96 Oximetry 02/22/17 02/22/17 02/22/17 13:05 13:12 13:47 Pulse Rate 112 H Pulse Rate [ 101 H 99 H Apical] Respiratory 16 14 Rate Blood Pressure 176/97 162/103 [Left Arm] O2 Sat by Pulse 94 L 98 Oximetry 02/22/17 13:58 Pulse Rate Pulse Rate [ 98 H Apical] Respiratory 16 Rate Blood Pressure 206/98 [Left Arm] O2 Sat by Pulse 100 Oximetry Laboratory Tests 02/22/17 02/22/17 13:00 13:00 WBC 8.6 RBC 4.27 L Hgb 12.0 L Hct 36.2 L MCV 84.7 MCH 28.1 MCHC 33.2 RDW 13.8 Plt Count 209 MPV 8.9 Absolute Neuts (auto) 5.70 Absolute Lymphs (auto) 1.60 Absolute Monos (auto) 0.40 Absolute Eos (auto) 0.70 H Absolute Basos (auto) 0.10 Neutrophils % 66.9 Lymphocytes % 18.9 L Monocytes % 5.1 Eosinophils % 7.9 H Basophils % 1.2 PT 10.2 INR 0.900 PTT (SP) 33.9 D-Dimer, Quantitative 964 H* Sodium 133 L Potassium 4.2 Chloride 104 Carbon Dioxide 24 Anion Gap 9.2 L BUN 25 H Creatinine 1.12 BUN/Creatinine Ratio 22.3 H Random Glucose 466 H* Serum Osmolality 291.5 Calcium 8.5 Magnesium 1.9 Total Bilirubin 0.6 Direct Bilirubin < 0.1 Indirect Bilirubin 0.5 AST 21 ALT 19 Alkaline Phosphatase 156 H Creatine Kinase 79 CK-MB (CK-2) 7.9 H* CK-MB (CK-2) % Not Reportable Troponin I 0.21 H* Serum Total Protein 7.0 Albumin 2.8 L - EKG/XRAY/CT EKG: Sinus, Tachy - heart rate-107, LVH, ST depression - inferolateral leads XRAY: chest - no acute changes CT Ordered: Yes - CTA-NO pulmonary embolus Departure - Departure Clinical Impression: Non-ST elevation ID (NSTEMI), Elevated d-dimer, Non-compliance with treatment Congestive heart failure (CHF) Qualifiers: Congestive heart failure type: combined Congestive heart failure chronicity: unspecified congestive heart failure chronicity Qualified Code(s): I50.40 - Unspecified combined systolic (congestive) and diastolic (congestive) heart failure Time of Disposition: 16:39 - D/W Dr. Desi VICTOR MD/Dr. Kinsey-cardio Disposition: Transfer to Hospital Condition: Fair Referrals: [place],Radha, EMBROIDERER [Primary Care Provider] - 1-2 Weeks Home Medications: Ambulatory Orders Aspirin [Baby Aspirin] 81 mg PO DAILY 12/05/16 Furosemide [Lasix] 40 mg PO DAILY #30 tab 12/05/16 Levothyroxine Sodium [Levo-T] 25 mcg PO ACBK #30 tab 12/05/16 Lisinopril [Prinivil] 5 mg PO DAILY #30 tab 12/05/16 Magnesium Hydroxide [Milk Of Magnesia] 30 ml PO DAILY PRN 12/05/16 Metformin HCl 1,000 mg PO BID #60 tab 12/05/16 Nitroglycerin 0.4 mg Tab [Nitrostat] 1 ea SL Q5MIN PRN #1 bottle 12/05/16 Polyethylene Glycol 3350 [Miralax] 1 pow PO DAILY #30 pack 12/05/16 Potassium Chloride [Micro-K] 10 meq PO DAILY #30 cap 12/05/16 Transfer to Outside Facility - Transfer Information Accepting Facility: [facility] Reason for Transfer: woodworking shop laborer
[2017-02-22] MEDS ORDERED: NITROGLYCERIN 0.4 MG 25 EA TAB SL ONE ×2 (12:55→13:52)
[2017-02-22] MEDS ORDERED: SODIUM CHLORIDE 0.9% 500ML 500 ML IVS ONE (12:55)
[2017-02-22] MEDS ORDERED: ASPIRIN (CHEWABLE) 81 MG TAB PO ONE (12:55)
[2017-02-22] MEDS ORDERED: NITROGLYCERIN 0.4 MG/HR PATCH TOP ONE ×2 (13:05)
--- NOTE | 2017-02-22 13:11 | RAD ---
EXAM DESCRIPTION: Chest,1 View CLINICAL HISTORY: Chest pain FINDINGS/ IMPRESSION: Comparison 01/13/2017. Median sternotomy wires. Heart size top limits normal. No pulmonary edema, infiltrate or effusion No acute bony abnormality Electronically signed by: Errol Hooks MD 02/22/2017 1:10 PM CDT
[2017-02-22] MEDS ORDERED: LISINOPRIL 10 MG TAB PO ONE (13:51)
[2017-02-22] MEDS ORDERED: METOPROLOL SUCCINATE XL 25 MG TAB PO ONE (13:51)
[2017-02-22] MEDS ORDERED: INSULIN, REG.(HUMAN) 100 U/ML VIAL SUBCU ONE (14:03)
[2017-02-22] MEDS ORDERED: NITROGLYCERIN/D5W IV 250 ML IVS ONE (14:04)
[2017-02-22] MEDS ORDERED: SODIUM CHLORIDE 0.9% 1000ML 1,000 ML IVS PRN (14:10)
[2017-02-22] MEDS ORDERED: HEPARIN PREMIX 500 ML ONE (14:12)
[2017-02-22] MEDS ORDERED: HEPARIN PREMIX 25,000 UNITS in PREMIX BAG 1 BAG IVS SCH (14:15)
[2017-02-22] MEDS ORDERED: NITROGLYCERIN/D5W IV 50,000 MCG in PREMIX BOTTLE 1 BOTTLE IVS SCH (14:30)
--- NOTE | 2017-02-22 15:05 | CT ---
EXAM DESCRIPTION: CTA Chest CLINICAL HISTORY: 61 years, Male, elevated d dimer /chest pain COMPARISON: None TECHNIQUE: CT pulmonary angiography is performed with thin-section multi detector technique during rapid bolus administration of IV contrast media. Multiplanar reformatted images are reviewed along with source images and maximum intensity projection three dimensional images which were created on a separate dedicated workstation and are stored in the patient's medical record. FINDINGS: Adequate opacification of the pulmonary vessels. No filling defect in the pulmonary arteries. No PE observed. Very small left pleural effusion. Minor compressive atelectasis in the left lung base. No infiltrate or nodule observed. Incidental note is made of calcified gallstones in the gallbladder. IMPRESSION: Small left pleural effusion Cholelithiasis Negative for PE This exam was performed according to our departmental dose-optimization program, which includes automated exposure control, adjustment of the mA and/or kV according to patient size and/or use of iterative reconstruction technique. Electronically signed by: Marty Aviles MD 02/22/2017 3:04 PM CDT
[2017-02-22 16:51] VITALS: O2SAT 96
[2017-02-22 16:52] VITALS: BP 168/98
== END 2017-02-22 16:52 | disposition short-term general hospital (02) ==
LOC: ER 12:47
DX: I21.4 Non-ST elevation (NSTEMI) myocardial infarction (principal); I11.0 Hypertensive heart disease with heart failure; I50.40 Unspecified combined systolic (congestive) and diastolic (congestive) heart failure; I25.2 Old myocardial infarction; E11.9 Type 2 diabetes mellitus without complications; Z95.1 Presence of aortocoronary bypass graft; Z79.82 Long term (current) use of aspirin; Z79.899 Other long term (current) drug therapy
CPT/HCPCS: 36415; 36416; 71010; 71275; 80048; 80076; 81001; 82550; 82553; 82948; 83880; 84484; 85025; 85379; 85610; 85730; 93005; J1644; J7040

== ENCOUNTER 2017-04-05 11:42 | Observation (INO) | payer SELFPAY ==
[2017-04-05] MEDS ORDERED: SODIUM CHLORIDE 0.9% (FLUSH) 10 ML SYG IV PRN ×3 (12:13→17:12)
[2017-04-05] MEDS ORDERED: NITROGLYCERIN 0.4 MG/HR PATCH TOP ONE (12:13)
[2017-04-05] MEDS ORDERED: BUMETANIDE 0.25 MG/ML VIAL IV ONE (12:15)
--- NOTE | 2017-04-05 12:16 | ED.PDOC ---
History of Present Illness - General Chief Complaint: Chest Pain/WA Stated Complaint: 4 day hx chest discomfort Time Seen by Provider: 04/05/17 12:10 Source: patient Exam Limitations: no limitations - History of Present Illness Timing/Duration: getting worse, intermittent, other - 4 days Severity: moderate Location: central Activities at Onset: rest Prior Chest Pain/Cardiac Workup: angina, cardiac cath, cardiolye scan, echocardiography, heart attack Improving Factors: rest Worsening Factors: nothing Nitro Today/Relief: provided by ED Aspirin Treatment Today: provided by ED - stated not taking aspirin regularly Associated Symptoms: other - abdominal bloating Allergies/Adverse Reactions: Allergies NO KNOWN ALLERGY Allergy (Verified 04/05/17 11:45) Home Medications: Ambulatory Orders Aspirin [Baby Aspirin] 81 mg PO DAILY 12/05/16 Furosemide [Lasix] 40 mg PO DAILY #30 tab 12/05/16 Levothyroxine Sodium [Levo-T] 25 mcg PO ACBK #30 tab 12/05/16 Lisinopril [Prinivil] 5 mg PO DAILY #30 tab 12/05/16 Magnesium Hydroxide [Milk Of Magnesia] 30 ml PO DAILY PRN 12/05/16 Metformin HCl 1,000 mg PO BID #60 tab 12/05/16 Nitroglycerin 0.4 mg Tab [Nitrostat] 1 ea SL Q5MIN PRN #1 bottle 12/05/16 Polyethylene Glycol 3350 [Miralax] 1 pow PO DAILY #30 pack 12/05/16 Potassium Chloride [Micro-K] 10 meq PO DAILY #30 cap 12/05/16 Review of Systems - Review of Systems Constitutional: States: no symptoms reported EENTM: States: no symptoms reported Respiratory: States: no symptoms reported Cardiology: States: see HPI Gastrointestinal/Abdominal: States: see HPI Genitourinary: States: no symptoms reported Musculoskeletal: States: no symptoms reported Skin: States: no symptoms reported Neurological: States: no symptoms reported Past Medical History (General) - Patient Medical History Hx Seizures: No Hx Stroke: No Hx Dementia: No Hx Asthma: No Hx of COPD: No Hx Cardiac Disorders: Yes - hx [place] a year ago Hx Congestive Heart Failure: Yes Hx Pacemaker: No Hx Hypertension: Yes Hx Thyroid Disease: No Hx Diabetes: Yes Hx Gastroesophageal Reflux: No Hx Renal Disease: No Hx Cancer: No Hx of HIV: No Hx Hepatitis C: No Hx MRSA: No Surgical History: coronary bypass surgery - 2014 - Vaccination History Hx Tetanus, Diphtheria Vaccination: No Hx Influenza Vaccination: No Hx Pneumococcal Vaccination: No - Social History Hx Tobacco Use: No Hx Chewing Tobacco Use: No Hx Alcohol Use: Yes Hx Substance Use: No Hx Substance Use Treatment: No Hx Depression: No Hx Physical Abuse: No Hx Emotional Abuse: No Hx Suspected Abuse: No Family Medical History - Family History Mother Family History: Unknown Hx Family Hypertension: Yes - mom Hx Family Diabetes: Yes - mom Physical Exam - Physical Exam General Appearance: Alert, Comfortable, No apparent distress Eyes, Ears, Nose, Throat Exam: PERRL/EOMI, normal ENT inspection, pharynx normal Neck: non-tender, full range of motion, supple Respiratory: chest non-tender, lungs clear, normal breath sounds, no respiratory distress Cardiovascular/Chest: normal peripheral pulses, regular rate, rhythm, no murmur Peripheral Pulses: radial,right: 2+, radial,left: 2+ Gastrointestinal/Abdominal: normal bowel sounds, non tender, soft, no organomegaly, no pulsatile mass, distended Extremity: non-tender, no calf tenderness, pedal edema - +1 Neurologic: alert, normal mood/affect, oriented x 3 Skin Exam: normal color, warm/dry Progress - Progress Progress: 04/05/17 12:38 04/05/17 12:13 IV Care:Saline Lock per Protoc QSHIFT Telemetry .ONCE Sodium Chloride 0.9% (Flush) [Saline Flush Syringe] 10 ml IV PRN PRN EKG Stat Pulse Ox Stat Chest,1 View [RAD] Stat 04/05/17 12:14 Pulse Oximetry Assessment DAILY 04/05/17 12:25 B-TYPE NATRIURETIC PEPTIDE/BNP Stat CARDIAC PANEL,ER Stat HEPATIC FUNCTION PANEL Stat LIPASE Stat 04/05/17 12:26 Abdomen Flat & Upright [RAD] Stat 04/05/17 12:38 Last Vital Signs Temp 97.7 F 04/05/17 11:45 Pulse 95 H 04/05/17 12:05 Resp 24 04/05/17 12:05 BP 152/97 04/05/17 12:05 Pulse Ox 96 04/05/17 12:05 04/05/17 13:33 Laboratory Tests 04/05/17 04/05/17 12:25 12:25 WBC 6.5 RBC 4.15 L Hgb 12.2 L Hct 37.0 L MCV 89.4 MCH 29.3 MCHC 33.0 RDW 16.4 H Plt Count 251 MPV 8.9 Absolute Neuts (auto) 4.80 Absolute Lymphs (auto) 0.90 L Absolute Monos (auto) 0.50 Absolute Eos (auto) 0.30 Absolute Basos (auto) 0.10 Neutrophils % 74.2 Lymphocytes % 13.6 L Monocytes % 7.1 Eosinophils % 3.9 Basophils % 1.2 PT 12.4 INR 1.100 PTT (SP) 36.2 Sodium 133 L Potassium 5.2 H Chloride 105 Carbon Dioxide 22 Anion Gap 11.2 L BUN 20 H Creatinine 1.18 BUN/Creatinine Ratio 16.9 Random Glucose 366 H Serum Osmolality 283.9 Calcium 8.7 Magnesium 2.1 Total Bilirubin 1.3 H Direct Bilirubin 0.5 H Indirect Bilirubin 0.8 AST 33 ALT 34 Alkaline Phosphatase 541 H Creatine Kinase 138 CK-MB (CK-2) 4.9 H* CK-MB (CK-2) % Not Reportable Troponin I 0.08 H* B-Natriuretic Peptide 3490.0 H* Serum Total Protein 8.3 H Albumin 2.9 L Lipase 26 - EKG/XRAY/CT EKG: Sinus, Tachy, nonspecific ST T wave Chg Comments: Heart [id number],left atrial enlargement,left axis deviation XRAY: abdomen - cardiomegaly,non specific bowel gas pattern Departure - Departure Clinical Impression: Chest discomfort, Non compliance w medication regimen, NSTEMI (non-ST elevated myocardial infarction) CHF, acute on chronic Qualifiers: Congestive heart failure type: combined Qualified Code(s): I50.43 - Acute on chronic combined systolic (congestive) and diastolic (congestive) heart failure Diabetes Qualifiers: Diabetes mellitus type: type 2 Diabetes mellitus complication status: with unspecified complications Diabetes mellitus termite treater insulin use: without long-term use Qualified Code(s): E11.8 - Type 2 diabetes mellitus with unspecified complications Time of Disposition: 15:23 Disposition: Admit Patient Condition: Fair Departure Forms: Patient Portal Self Enrollment Referrals: Radha You NP [Primary Care Provider] - 1-2 Weeks Home Medications: Ambulatory Orders Aspirin [Baby Aspirin] 81 mg PO DAILY 12/05/16 Furosemide [Lasix] 40 mg PO DAILY #30 tab 12/05/16 Levothyroxine Sodium [Levo-T] 25 mcg PO ACBK #30 tab 12/05/16 Lisinopril [Prinivil] 5 mg PO DAILY #30 tab 12/05/16 Magnesium Hydroxide [Milk Of Magnesia] 30 ml PO DAILY PRN 12/05/16 Metformin HCl 1,000 mg PO BID #60 tab 12/05/16 Nitroglycerin 0.4 mg Tab [Nitrostat] 1 ea SL Q5MIN PRN #1 bottle 12/05/16 Polyethylene Glycol 3350 [Miralax] 1 pow PO DAILY #30 pack 12/05/16 Potassium Chloride [Micro-K] 10 meq PO DAILY #30 cap 12/05/16 Decision To Admit - Decistion To Admit Decision to Admit Reason: Admit from ER Decision to Admit Date: 04/05/17 Decision to Admit Time: 15:23 - D/W Dr. Campbell-Hospitalist for admit
--- NOTE | 2017-04-05 12:47 | RAD ---
EXAM DESCRIPTION: Chest,1 View CLINICAL HISTORY: 61 years Male, pain COMPARISON: February 22, 2017 TECHNIQUE: AP portable chest. FINDINGS: Cardiomegaly without failure. No parenchymal consolidation in the lungs. IMPRESSION: Normal. Electronically signed by: Marty Aviles MD 04/05/2017 12:46 PM CDT
--- NOTE | 2017-04-05 12:47 | RAD ---
2 view abdomen. Indication: bloated Comparison: August 10, 2016 Impression: No free air. Bowel gas pattern nonspecific. Scattered calcified phleboliths in the pelvis. No acute osseous abnormality. Median sternotomy wires noted. Electronically signed by: Shlomo Hilario MD 04/05/2017 12:45 PM CDT
[2017-04-05] MEDS ORDERED: NITROGLYCERIN 0.4 MG 25 EA TAB SL PRN ×2 (16:27→17:12)
[2017-04-05] MEDS ORDERED: MORPHINE SULFATE INJ 10 MG/ML VIAL IV PRN ×2 (16:27→17:12)
[2017-04-05] MEDS ORDERED: DEXTROSE 50% 25 GM/50 ML SYG IV PRN ×2 (16:27→17:12)
[2017-04-05] MEDS ORDERED: ACETAMINOPHEN 325 MG TAB PO PRN ×2 (16:27→17:12)
[2017-04-05] MEDS ORDERED: GLUCAGON INJ 1 MG VIAL SUBCU PRN ×2 (16:27→17:12)
[2017-04-05] MEDS ORDERED: IV SET AND CAP CHANGE INJ INJ SCH ×2 (16:30→17:30)
[2017-04-05] MEDS ORDERED: INSULIN LISPRO 100 UNITS/ML PEN SUBCU SCH (16:30)
[2017-04-05] MEDS ORDERED: MAGNESIUM HYDROXIDE 30 ML UD PO PRN ×2 (16:35→17:12)
[2017-04-05] MEDS ORDERED: POLYETHYLENE GLYCOL 3350 17 GM PCKT PO ONE ×2 (16:37)
[2017-04-05] MEDS ORDERED: FUROSEMIDE INJ 20 MG/2 ML VIAL IV ONE ×2 (16:40)
[2017-04-05] MEDS ORDERED: FUROSEMIDE INJ 40 MG/4 ML VIAL IV ONE ×2 (16:40)
[2017-04-05] MEDS ORDERED: metFORMIN HCL 500 MG TAB PO ONE ×2 (16:45)
[2017-04-05] MEDS ORDERED: SODIUM CHLORIDE 0.9% 1000ML 1,000 ML IVS PRN ×2 (16:46→17:12)
[2017-04-05] MEDS ORDERED: METOPROLOL SUCCINATE XL 25 MG TAB PO SCH (17:00)
[2017-04-05] MEDS ORDERED: LISINOPRIL 5 MG TAB PO SCH (17:00)
[2017-04-05] MEDS ORDERED: NITROGLYCERIN 0.2 MG/HR PATCH TD SCH (17:00)
[2017-04-05] MEDS ORDERED: ENOXAPARIN SODIUM 40 MG/0.4 ML SYG SUBCU SCH (17:00)
--- NOTE | 2017-04-05 17:12 | HP ---
HISTORY OF PRESENT ILLNESS: This 61 year-old male is placed in the hospital for observation from the Emergency Room after developing fairly significant chest discomfort and pain over the last 2 days. He has also had a neck ache for the 4 days prior to admission. His abdominal aching has been present with increased abdominal distention also present. Similar admission was noted approximately 4 months ago. He states that he has recently been seen in the [facility]. He does not know the name or the telephone number of the clinic so that we would be able to verify and to get further information. It was about 4 or 5 days ago that he was seen there most recently and he was given some medications for specific symptoms, and he stated that he took the medicines for 2 to 3 days. They were not helping and so he has subsequently stopped them. He was last in our hospital approximately 4 months ago and was sent home on a series of medicines to specifically address congestive heart failure which he is now presenting with. Apparently he is not taking any of these medicines and apparently has either run out or has decided to stop them recently. He apparently was seen in the hospital 4 months ago and also had stopped all of his home medicines thereby getting worse. In the Emergency Room, he was noted to be somewhat weak and chilled easily. No nausea and vomiting but he has been having chest discomfort which is better after starting some Nitroglycerin patch therapy. Significantly elevated beta natriuretic peptide is noted suggesting a congestive heart failure exacerbation along with some elevated troponins possibly secondary with the need to rule out underlying ischemic disease as well. PAST MEDICAL HISTORY: 1. Hypertension. 2. Diabetes mellitus type 2 on pills. 3. Coronary artery disease. 4. Previous coronary artery bypass grafting he states about 4 years ago. 5. History of hyperlipidemia. 6. Heart failure. He has stopped all medicines for an undetermined reason and time. PAST SURGICAL HISTORY: 1. Cardiac surgery with coronary artery bypass grafting apparently done in November 2015 even though the patient thought it was done 4 years ago. This is his only surgery. OUTPATIENT MEDICATIONS: Unknown by the patient and unable to contribute. Past record is noted and will be listed in the chart, but at the present time it is apparently verified that the patient has stopped all of his home medications at an indeterminate time period in the past. ALLERGIES: NONE KNOWN. SOCIAL HISTORY: The patient lives alone. 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 He has never smoked. He does not drink alcoholic beverages. REVIEW OF SYSTEMS: The patient's weight is stable. No fever or chills. HEENT: No significant vision or hearing changes. LUNGS: Some mild shortness of breath is noted especially upon exertion. CARDIOVASCULAR: Some chest discomfort recently noted. ABDOMEN: Decreased appetite with some abdominal distention and tightness evident. He complains of no stool blood and no nausea, vomiting, diarrhea or blood in the stool. GENITOURINARY: No dysuria. NEUROLOGIC: No significant headaches, but he is quite weak. PHYSICAL EXAMINATION: VITAL SIGNS: Afebrile, pulse 101, blood pressure 142/90, respirations 24, pulse oximetry 98% on room air. Weight 70.3 kilos. GENERAL: The patient is fairly awake, alert and able to communicate. He admits to no significant knowledge of where he gets his medical followup or the type of medicines. He states he gets his medicines filled at the pharmacy at the [facility] and most recently did so about 4 or 5 days ago. He lives alone so no one is able to bring in his medicines and he does not know how to contact the clinic for further information. HEENT: Unremarkable. NECK: Supple. CHEST: Lungs have some diminished breath sounds with some rales more prominent on the left than the right. CARDIOVASCULAR: Heart tones fairly regular, somewhat distant. ABDOMEN: Slightly distended, somewhat tympanic with increased gas in the intestines, somewhat tender to palpation deeply. No organomegaly noted. EXTREMITIES: 1+ pitting edema evident. Fairly good range of motion. Able to ambulate without assistance. NEUROLOGIC: No focal neurological deficits but the patient is generally somewhat tired. He states that he is disabled because and after the cardiac surgery had been performed in [place] a number of years ago. LABORATORY: His white count is 6,500, hemoglobin 12.2, INR 1.1. Chemistry shows sodium 133, potassium 5.2, BUN 20, creatinine 1.18, glucose 366, CO2 of 22 , calcium 8.7. Bilirubin 1.3. Liver enzymes normal except alkaline phosphatase 541. CK-MB 4.9 while troponin is 0.08 up to 0.1 on repeat. Beta natriuretic peptide is much higher than it has been in the past at 3,490. Albumin 2.9, lipase 26. Urinalysis pending. RADIOLOGY: Chest x-ray fails to show any significant heart failure but cardiomegaly evident. Abdominal x-ray showed nonspecific findings. ASSESSMENT: 1. Acute chest pain. Continue observation to rule out underlying ischemic coronary disease contributing to his symptoms. Elevated troponin also noted initially with close followup necessary. 2. Chronic congestive heart failure of undetermined type with an acute exacerbation with elevated beta natriuretic peptide requiring fluid restrictions and diuresis having been off of home medications for an undetermined period of time. 3. Diabetes mellitus type 2. 4. History of coronary artery disease with a previous coronary artery bypass graft. 5. History of hyperlipidemia. 6. History of hypertension. 7. Elevated alkaline phosphatase. PLAN: The patient is placed in the hospital for overnight fluid restrictions with diuresis. Close observation and followup, and reevaluation in the morning. Social Service to assist with financial assistance as well as to assist with getting him into the [facility] which is a lot closer and will be able to provide improved compliance. Of significance is the patient's repeat noncompliance in taking his home medications and subsequent clinical decompensation which will require specialized followup. #[id number] [facility]
[2017-04-05] MEDS: ENOXAPARIN SODIUM 40 MG/0.4 ML SYG SUBCU SCH (18:47)
[2017-04-05] MEDS ORDERED: SODIUM CHLORIDE 0.9% (FLUSH) 10 ML SYG IV SCH (21:00)
[2017-04-05] MEDS ORDERED: metFORMIN HCL 500 MG TAB PO SCH (21:00)
[2017-04-05] MEDS: INSULIN LISPRO 100 UNITS/ML PEN SUBCU SCH (21:12)
[2017-04-05] MEDS: SODIUM CHLORIDE 0.9% (FLUSH) 10 ML SYG IV SCH ×2 (21:13→21:19)
[2017-04-06] MEDS ORDERED: OMEPRAZOLE CAP 20 MG CAP PO SCH (06:30)
[2017-04-06] MEDS: OMEPRAZOLE CAP 20 MG CAP PO SCH (06:32)
[2017-04-06] MEDS: LEVOTHYROXINE SODIUM 0.025 MG TAB PO SCH (06:32)
[2017-04-06] MEDS ORDERED: LEVOTHYROXINE SODIUM 0.025 MG TAB PO SCH (07:00)
[2017-04-06] MEDS: INSULIN LISPRO 100 UNITS/ML PEN SUBCU SCH ×4 (08:45→21:21)
[2017-04-06] MEDS: METOPROLOL SUCCINATE XL 25 MG TAB PO SCH (08:47)
[2017-04-06] MEDS: LISINOPRIL 5 MG TAB PO SCH (08:47)
[2017-04-06] MEDS: NITROGLYCERIN 0.2 MG/HR PATCH TD SCH (08:48)
[2017-04-06] MEDS: ASPIRIN TABLET 325 MG TAB PO SCH (08:48)
[2017-04-06] MEDS: FUROSEMIDE INJ 20 MG/2 ML VIAL IV SCH ×2 (08:48→17:10)
[2017-04-06] MEDS ORDERED: ASPIRIN TABLET 325 MG TAB PO SCH (09:00)
[2017-04-06] MEDS ORDERED: FUROSEMIDE INJ 20 MG/2 ML VIAL IV SCH (09:00)
--- NOTE | 2017-04-06 13:54 | PN ---
DATE: 04/06/17 SUBJECTIVE: The patient is sitting up in the chair and states that in many ways he feels a little better, though still very weak. His increased activity will be observed and monitored closely today. No further chest pains. Appetite is fair. Discussion regarding his clinic followup is at length and he is unable to keep his appointments at the [facility] as it is too far away and he would like to be able to be seen closer. He has been somewhat noncompliant in the past and being able to be seen in the clinic will assist with some of his compliance issues. OBJECTIVE: VITAL SIGNS: Afebrile. Pulse 89. Blood pressure 127/76. Pulse oximetry 96% on room air. He has had approximately 2400 mL of urine output and has lost some weight since yesterday and may have helped by diuresing him. LUNGS: Still a few rales, but much less noted in the lower lung condon upon inspiration. HEART: Regular. ABDOMEN: Still somewhat tenderness and slightly distended. No bowel movement yet. We will try Milk of Magnesia to assist with elimination. LABORATORY: Elevation of troponin initially of 0.08 and up last evening at 11 PM to 0.34 and down this morning at 7 AM to 0.28. CPK remained normal. CPK remained normal. This appears to be directly related to the markedly elevated beta natriuretic peptide of 3,490 noted at admission. Potassium 3.9, glucose 135, bilirubin 1.5, albumin 2.3, cholesterol 155. Urinalysis showed some glycosuria, proteinuria and a trace of hematuria with no cultures obtained. ASSESSMENT: 1. Acute chest pain with continued observation showing elevated troponin, yet normal CPK, probably as a direct result of the underlying congestive heart failure with elevated beta natriuretic peptide requiring ongoing treatment and close observation documenting its decrease towards normal. 2. Chronic congestive heart failure of undetermined type with an acute exacerbation with elevated beta natriuretic peptide of almost 3500 requiring continued fluid restrictions and diuresis. 3. Poor compliance state with the patient having been off of his prescribed home medications for an undetermined period of time, no doubt contributing to his current symptom state. 4. History of diabetes mellitus, type 2. 5. History of coronary artery disease with a previous coronary artery bypass graft having been performed in [place] between two and four years ago. 6. History of hyperlipidemia. 7. History of hypertension. 8. Elevated alkaline phosphatase. 9. Mild edema state. 10. Mild abdominal distention, possible obstipation. PLAN: We will try Milk of Magnesia to see if a bowel movement can be assisted. Continue with diuresis with parenteral Lasix today twice a day and fluid restriction to continue. Recheck enzymes as well as beta natriuretic peptide in the morning. We hope to be able to reduce the elevated BNP by 30% before discharge to improve prognosis. Continued diabetes management. Continue with financial assistance, but also schedule him to be followed up with [facility] and with Dr. Azul if at all possible here in the hospital clinic instead of having to drive to another city for followup. #[id number] [facility]
[2017-04-06] MEDS ORDERED: metFORMIN HCL 500 MG TAB ONE (16:32)
[2017-04-06] MEDS ORDERED: metFORMIN HCL 500 MG TAB PO SCH (17:00)
[2017-04-06] MEDS: metFORMIN HCL 500 MG TAB PO SCH ×2 (17:09→18:12)
[2017-04-06] MEDS: ENOXAPARIN SODIUM 40 MG/0.4 ML SYG SUBCU SCH (17:19)
[2017-04-06] MEDS ORDERED: REMOVE OLD PATCH TOP SCH (21:00)
[2017-04-07] MEDS: LEVOTHYROXINE SODIUM 0.025 MG TAB PO SCH (06:46)
[2017-04-07] MEDS: OMEPRAZOLE CAP 20 MG CAP PO SCH (06:46)
[2017-04-07] MEDS ORDERED: metFORMIN HCL 500 MG TAB PO SCH (07:30)
[2017-04-07] MEDS: INSULIN LISPRO 100 UNITS/ML PEN SUBCU SCH ×2 (08:26→11:51)
[2017-04-07] MEDS: METOPROLOL SUCCINATE XL 25 MG TAB PO SCH (09:20)
[2017-04-07] MEDS: NITROGLYCERIN 0.2 MG/HR PATCH TD SCH (09:21)
[2017-04-07] MEDS: ASPIRIN TABLET 325 MG TAB PO SCH (09:21)
[2017-04-07] MEDS: LISINOPRIL 5 MG TAB PO SCH (09:23)
[2017-04-07] MEDS: FUROSEMIDE INJ 20 MG/2 ML VIAL IV SCH (09:24)
[2017-04-07 11:06] VITALS: BP 149/86; TEMP 98.1; O2SAT 98
--- NOTE | 2017-04-07 13:31 | DS ---
DISCHARGE DIAGNOSIS: 1. Acute chest discomfort requiring observation in the hospital with noted elevated troponin levels, returning towards normal and normal CPK noted, probably indicating and resultant from the underlying congestive heart failure with markedly elevated beta natriuretic peptide, showing significant improvement after fluid restrictions and diuresis continued. 2. Chronic congestive heart failure of undetermined type with an acute exacerbation with elevated beta natriuretic peptide of almost 3500 requiring fluid restrictions and diuresis, showing improvement to 1000 prior to discharge with followup necessary. 3. Poor compliance state with the patient having been off of his prescribed home medications for an undetermined period of time, no doubt contributing to his current symptom state. 4. History of diabetes mellitus, type 2, on oral hypoglycemic agents. 5. History of coronary artery disease with a previous coronary artery bypass graft [facility] within the last two to four years. 6. History of hyperlipidemia. 7. History of hypertension. 8. Elevated alkaline phosphatase. 9. Mild edema state, showing improvement. 10. Mild abdominal distention with possible obstipation contributing. HISTORY OF PRESENT ILLNESS: This 61-year-old male is admitted to the hospital from the Emergency Room with significant chest discomfort, shortness of breath, getting worse over the last two days. He has noted some increasing edema state of his lower extremities . He also had an aching in his neck for the last four days prior to admission. Moderate abdominal distention was also noted. He has had a similar admission about four months ago and was also related to having stopped many of his home medications. He has been seen in the [facility] clinic in the past, but is having difficulty driving to [facility] so that he will be able to keep important repeat followup in the clinic. In the Emergency Room, he was found to have a significantly elevated beta natriuretic peptide of approximately 3500 and evidence of congestive heart failure as well as elevated troponin levels. In the hospital, his troponin levels actually refugio even higher and eventually showed diminishment towards normal and apparently paralleled the significantly elevated BNP levels. His condition was discussed with Dr. Azul, production technician, who felt the elevated troponin levels were related to the significantly elevated mechanism contributing to the beta natriuretic peptide elevation. The patient was treated in the hospital with fluid restrictions, parenteral diuresis and close hemodynamic and generalized followup. LABORATORY: White count was normal at 6,900 with 66% neutrophils. Hemoglobin dropped to 10.8. INR 1.1. Chemistries showed sodium increasing from 133 to 138. Sugars elevated at 366 and were 100 at the time of discharge. Potassium 5.2 and was normal at 4.3 at discharge. BUN did rise from 20 to 30, creatinine up to 1.6 with diuresis which will be pulled back at discharge. Calcium 8.4, bilirubin 1.5 with alkaline phosphatase decreasing from 541 to 405. CPK normal at 87 while the troponin did increase up to 0.34 and decreased to 0.15 before discharge. Beta natriuretic peptide was 3,490 on admission, decreasing to 1, 740 at discharge. Albumin 2.3, cholesterol 155. Urinalysis showed proteinuria , glycosuria, and trace of hematuria on dipstick. No cultures obtained. Chest x-ray showed cardiomegaly without any significant pulmonary congestion noted radiographically. HOSPITAL COURSE: After diuresis, the patient showed significant clinical improvement at the time of discharge. The patient was ready to continue with outpatient therapy on the day of discharge. PLAN: Because of the patient's significant failure to continue taking his home medicines, he needs close clinical followup. We will try a repeat visit with [facility] and see Dr. Mayers this next Tuesday at 1:50 PM. He is to take the results of his hospital laboratory studies to the clinic for review. Close followup with a production technician in the clinic, either Dr. Kinsey in [place] or Dr. Azul at the [facility], can be orchestrated from [facility]. Try to limit his fluid intake to under 1800 mL per 24 hours to avoid edema and lung fluid build up. Closely observe the home medications. Return if not improving. Try to get financial assistance at the [facility] as possible to assist with his ongoing care. #[id number] [facility]
== END 2017-04-07 13:10 | disposition home or self-care (01) ==
LOC: ER 11:42 → MS 17:11 → INTOOBSV 17:11
PROVIDERS: ADMIT Emergency Medicine; ATTEND Emergency Medicine
DX: R07.89 Other chest pain (principal); I11.0 Hypertensive heart disease with heart failure; I50.9 Heart failure, unspecified; E11.9 Type 2 diabetes mellitus without complications; I25.10 Atherosclerotic heart disease of native coronary artery without angina pectoris; E78.5 Hyperlipidemia, unspecified; R79.89 Other specified abnormal findings of blood chemistry; R14.0 Abdominal distension (gaseous); Z91.14 Patient's other noncompliance with medication regimen; Z79.84 Long term (current) use of oral hypoglycemic drugs; Z79.82 Long term (current) use of aspirin; Z79.899 Other long term (current) drug therapy; Z95.1 Presence of aortocoronary bypass graft
CPT/HCPCS: 36415 ×9; 36416 ×7; 71010; 74010; 80048 ×2; 80053; 80061; 80076; 81001; 82550 ×4; 82553 ×4; 82948 ×7; 83690; 83880 ×2; 84443; 84484 ×6; 85025 ×2; 85610; 85730; 93005 ×2; 94760 ×2; 96372 ×2; 96374; 96375; 96376 ×2; 99284; G0378; J1650 ×2; J1815; J1940 ×4; J2270; J3490; J7030

== ENCOUNTER 2017-05-02 06:01 | Inpatient (IN) | payer SELFPAY ==
[2017-05-02] MEDS ORDERED: FUROSEMIDE INJ 40 MG/4 ML VIAL IV ONE ×2 (06:32→07:11)
--- NOTE | 2017-05-02 06:36 | ED.PDOC ---
History of Present Illness - General Source: patient, RN notes reviewed, Vital Signs reviewed Exam Limitations: no limitations - History of Present Illness Initial Comments: Patient comes in with c/o leg and abdomen swelling over the past 4-5 days. Also reports epigastric pressure. He has a history significant for CHF and DM but is taking none of his medications. This seems to be a pattern for him. He was admitted to the hospital 04/05/17 for same symptoms with significant CHF exacerbation due to non-compliance with his medications. Denies CP or SOB. Timing/Duration: getting worse - over past 4-5 days Severity: moderate Improving Factors: nothing Worsening Factors: nothing Associated Symptoms: denies symptoms <Ana De La Fuente - Last Filed: 05/02/17 06:54> <Ariel Pisano - Last Filed: 05/02/17 11:11> - General Chief Complaint: General Stated Complaint: swelling to abdomen and legs, cough, slightly SOB Time Seen by Provider: 05/02/17 06:25 - History of Present Illness Allergies/Adverse Reactions: Allergies NO KNOWN ALLERGY Allergy (Verified 05/02/17 06:32) Home Medications: Ambulatory Orders Levothyroxine Sodium [Levo-T] 25 mcg PO ACBK #30 tab 12/05/16 Magnesium Hydroxide [Milk Of Magnesia] 30 ml PO DAILY PRN 12/05/16 Nitroglycerin 0.4 mg Tab [Nitrostat] 1 ea SL Q5MIN PRN #1 bottle 12/05/16 Polyethylene Glycol 3350 [Miralax] 1 pow PO DAILY #30 pack 12/05/16 Aspirin [Baby Aspirin] 81 mg PO DAILY #100 chwtab 04/07/17 Furosemide [Lasix] 40 mg PO DAILY #30 tab 04/07/17 Lisinopril [Prinivil] 5 mg PO DAILY #30 tab 04/07/17 Metformin HCl 500 mg PO BID #60 tab 04/07/17 Metoprolol Succinate [Toprol Xl] 25 mg PO DAILY #30 tab.er.24 04/07/17 Potassium Chloride [Micro-K] 10 meq PO DAILY #30 cap 04/07/17 Review of Systems - Review of Systems Constitutional: States: no symptoms reported Respiratory: States: no symptoms reported. Denies: cough Cardiology: States: edema. Denies: chest pain Gastrointestinal/Abdominal: States: abdominal pain - "my stomach has gotten too big", epigastric pressure but no pain, other - Abdominal distention Musculoskeletal: States: no symptoms reported Skin: States: no symptoms reported Neurological: States: no symptoms reported All other Systems: No Change from Baseline <Ana De La Fuente Last Filed: 05/02/17 06:54> Past Medical History (General) - Patient Medical History Hx Seizures: No Hx Stroke: No Hx Dementia: No Hx Asthma: No Hx of COPD: No Hx Cardiac Disorders: Yes Hx Congestive Heart Failure: Yes Hx Pacemaker: No Hx Hypertension: Yes Hx Thyroid Disease: No Hx Diabetes: Yes Hx Gastroesophageal Reflux: Yes Hx Renal Disease: No Hx Cancer: No Hx of HIV: No Hx Hepatitis C: No Hx MRSA: No Surgical History: coronary bypass surgery - Vaccination History Hx Tetanus, Diphtheria Vaccination: No Hx Influenza Vaccination: No Hx Pneumococcal Vaccination: No - Social History Hx Tobacco Use: No Hx Chewing Tobacco Use: No Hx Alcohol Use: Yes Hx Substance Use: No Hx Substance Use Treatment: No Hx Depression: No Hx Physical Abuse: No Hx Emotional Abuse: No Hx Suspected Abuse: No <Ana De La Fuente Last Filed: 05/02/17 06:54> Family Medical History - Family History Mother Family History: Unknown Hx Family Hypertension: Yes - mom Hx Family Diabetes: Yes - mom <Ana De La Fuente Filed: 05/02/17 06:54> Physical Exam - Physical Exam General Appearance: Alert, No apparent distress, Well Developed, Well Groomed, Well Hydrated, Well Nourished Ears, Nose, Throat: hearing grossly normal Neck: full range of motion, supple, normal inspection Respiratory: lungs clear, normal breath sounds, no respiratory distress, no accessory muscle use Cardiovascular/Chest: normal peripheral pulses, regular rate, rhythm, no gallop , no murmur Peripheral Pulses: dorsalis pedis,right: 1+, dorsalis pedis,left: 1+ Gastrointestinal/Abdominal: normal bowel sounds, non tender, distended, other - Ascites Extremity: pedal edema - up to hips - legs are tight and edematous Neurologic: no motor/sensory deficits, alert, normal mood/affect, oriented x 3 Skin Exam: normal color, warm/dry Comments: Vital Signs 05/02/17 06:20 Temperature 98.5 F Pulse Rate [ 109 H monitor] Respiratory 20 Rate Blood Pressure 148/94 [Left Arm] O2 Sat by Pulse 99 Oximetry <SudhakarAna - Last Filed: 05/02/17 06:54> Progress - Progress Progress: 05/02/17 06:[address] Pisano @ 07:00 - EKG/XRAY/CT EKG: Sinus, Tachy, nonspecific ST T wave Chg, Unchanged from - 04/05/17 Comments: Rate 108 bpm <Ana De La Fuente - Last Filed: 05/02/17 06:54> - EKG/XRAY/CT XRAY: chest - mildly increased interstitial markings <Ariel Pisano R - Last Filed: 05/02/17 11:11> Departure <Ana De La Fuente - Last Filed: 05/02/17 06:54> - Departure Time of Disposition: 11:09 <Ariel Pisano - Last Filed: 05/02/17 11:11> - Departure Clinical Impression: Non compliance w medication regimen, Elevated troponin I level, Renal insufficiency CHF (congestive heart failure) Qualifiers: Congestive heart failure type: combined Congestive heart failure chronicity: acute on chronic Qualified Code(s): I50.43 - Acute on chronic combined systolic (congestive) and diastolic (congestive) heart failure Diabetes Qualifiers: Diabetes mellitus type: type 2 Diabetes mellitus complication status: with other specified complication Diabetes mellitus jail insulin use: without artificial stone setter use Qualified Code(s): E11.69 - Type 2 diabetes mellitus with other specified complication Disposition: Admit Patient Condition: Fair Departure Forms: Patient Portal Self Enrollment Referrals: Radha You NP [Primary Care Provider] - 1-2 Weeks Home Medications: Ambulatory Orders Levothyroxine Sodium [Levo-T] 25 mcg PO ACBK #30 tab 12/05/16 Magnesium Hydroxide [Milk Of Magnesia] 30 ml PO DAILY PRN 12/05/16 Nitroglycerin 0.4 mg Tab [Nitrostat] 1 ea SL Q5MIN PRN #1 bottle 12/05/16 Polyethylene Glycol 3350 [Miralax] 1 pow PO DAILY #30 pack 12/05/16 Aspirin [Baby Aspirin] 81 mg PO DAILY #100 chwtab 04/07/17 Furosemide [Lasix] 40 mg PO DAILY #30 tab 04/07/17 Lisinopril [Prinivil] 5 mg PO DAILY #30 tab 04/07/17 Metformin HCl 500 mg PO BID #60 tab 04/07/17 Metoprolol Succinate [Toprol Xl] 25 mg PO DAILY #30 tab.er.24 04/07/17 Potassium Chloride [Micro-K] 10 meq PO DAILY #30 cap 04/07/17 Decision To Admit - Decistion To Admit Decision to Admit Reason: Admit from ER Decision to Admit Date: 05/02/17 Decision to Admit Time: 11:09 - D/W Rajat Vasquez-ANP /Hospitalist <Ariel Pisano - Last Filed: 05/02/17 11:11>
[2017-05-02] MEDS ORDERED: NITROGLYCERIN 0.4 MG 25 EA TAB SL ONE (07:12)
[2017-05-02] MEDS ORDERED: LEVALBUTEROL NEBS 1.25 MG/3 ML VIAL NEB ONE (07:26)
--- NOTE | 2017-05-02 07:36 | RAD ---
Study: Frontal and Lateral Views of the Chest. Indication: Edema, CHF, epigastric pain Comparison: April 05, 2017. Impression: Median sternotomy wires. Cardiomegaly. Interstitial markings mildly bilaterally may reflect interstitial edema or chronic scarring. Mild left basilar atelectasis versus developing pneumonia. Follow-up to resolution recommended. Tiny left pleural effusion suspected. No pneumothorax. Osteopenia. If this is a new finding, DEXA scan recommended as well as evaluation for possible osteoporosis treatment. Electronically signed by: Shlomo Hilario MD 05/02/2017 7:35 AM [facility]
[2017-05-02] MEDS ORDERED: ASPIRIN (CHEWABLE) 81 MG TAB PO ONE (09:06)
[2017-05-02] MEDS ORDERED: INSULIN, REG.(HUMAN) 100 U/ML VIAL SUBCU ONE (09:53)
[2017-05-02] MEDS ORDERED: ASPIRIN (CHEWABLE) 81 MG TAB ONE (10:27)
[2017-05-02] MEDS ORDERED: DEXTROSE 50% 25 GM/50 ML SYG IV PRN (11:05)
[2017-05-02] MEDS ORDERED: ACETAMINOPHEN 325 MG TAB PO PRN (11:05)
[2017-05-02] MEDS ORDERED: NITROGLYCERIN 0.4 MG 25 EA TAB SL PRN (11:05)
[2017-05-02] MEDS ORDERED: GLUCAGON INJ 1 MG VIAL SUBCU PRN (11:05)
[2017-05-02] MEDS ORDERED: SODIUM CHLORIDE 0.9% (FLUSH) 10 ML SYG IV PRN (11:05)
--- NOTE | 2017-05-02 11:54 | HP ---
SUPERVISING PHYSICIAN: Amado Monique MD CHIEF COMPLAINT: Worsening shortness of breath. Lower extremity swelling. HISTORY OF PRESENT ILLNESS: Mr. Hernandez is a 61-year-old, male patient that presented to the Emergency Department today complaining of abdominal swelling along with some lower extremity edema that had been occurring over the last four to five days with some exertional dyspnea. He does have a significant history of congestive heart failure and diabetes, but is very noncompliant with his medication regimen. He is unsure what medications he actually takes and only really feels like he takes one pill which is a sugar pill. He denies any chest pains. Laboratory studies show his BNP was elevated at 2670 as well as first two sets of cardiac enzymes show troponin to be elevated at 0.08, which is unchanged. Chest x-ray was completed in the Emergency Department and per radiologic interpretation, two-view chest, shows cardiomegaly with interstitial markings mildly bilaterally which could reflect interstitial edema or chronic scarring. There is also note of a mild left basilar atelectasis versus developing pneumonia and a tiny left pleural effusion. No pneumothorax was reported. His initial vital signs show that he was hypertensive with a blood pressure of 148/94, saturation 99% on room air, but showing respirations 28 with some labored effort with a heart rate of 105. Given his history of congestive heart failure and his poor medical compliance, the patient was treated for congestive heart failure exacerbation initially in the Emergency Department and given Lasix 80 mg, oxygen and aspirin. The patient is now going to be admitted to the Medical/Surgical Floor for exacerbation of congestive heart failure and further treatment and evaluation. PAST MEDICAL HISTORY: 1. Hypertension, poorly controlled. 2. Diabetes mellitus, type 2, on oral therapy. 3. Coronary artery disease with previous cardiac bypass. 4. History of hyperlipidemia. 5. Congestive heart failure, chronic, with poor medical compliance with no current echocardiogram available for review. PAST SURGICAL HISTORY: 1. Cardiac surgery with coronary artery bypass graft done in November 2015. OUTPATIENT MEDICATIONS: 1. Metformin 500 mg b.i.d. Other medications that were listed previously in his past history include: 1. Levothyroxine 25 mcg daily. 2. Magnesium hydroxide daily as needed. 3. Nitrostat 1 sublingual q.5 minutes p.r.n. for chest pain. 4. MiraLAX 1 daily as needed. 5. Aspirin 81 mg daily. 6. Lasix 40 mg daily. 7. Lisinopril 5 mg daily. 8. Metformin 500 mg b.i.d. 9. Metoprolol succinate 25 mg daily. 10. Potassium chloride 10 mEq daily. These medications were listed as previous discharge medications. On review of pharmacy, Laura Santiago reports he has not had a prescription filled since last July. ALLERGIES: NO KNOWN DRUG ALLERGIES. SOCIAL HISTORY: The patient lives alone. He has previously worked in the past as an auto body repairperson as well as in the [employer] [place]. He denies ever smoking and does not drink alcohol. REVIEW OF SYSTEMS: CONSTITUTIONAL: Denies any significant changes in weight, fevers, chills. RESPIRATORY: He notes some shortness of breath with exertional effort, but denies any cough, wheezing. CARDIOVASCULAR: Denies chest pain or palpitations. Denies syncopal episodes. GASTROINTESTINAL: As noted in history of present illness. Abdomen is swollen, but denies any abdominal pain, constipation, diarrhea, nausea or vomiting. GENITOURINARY: No mention of dysuria, hematuria or other urinary symptoms. NEUROLOGIC: He denies any syncopal episodes, dizziness, vision disturbances, changes in hearing. PHYSICAL EXAMINATION: HEENT: Tympanic membranes clear bilaterally. Oropharynx is pink, moist without any lesions. NECK: Supple, nontender with full range of motion. Mild jugular venous distention noted. EXTREMITIES: 1 to 2+ pitting edema/anasarca up to just above the umbilicus and bilateral extremities. INTEGUMENTARY: There are no lesions or rashes noted. LABORATORY: Admission CBC showed white count 7,400, hemoglobin 12.3, hematocrit 38.0, platelet count 275,000. Differential within normal limits. Chemistries showed normal electrolytes with BUN 27, creatinine 1.35. Initial glucose was 274, calcium 8.2, albumin 2.5. Liver functions showed normal total bilirubin, AST, ALT. Alkaline phosphatase was elevated at 379 with CPK 272, troponin 0.08. BNP was elevated at 2670. Albumin was low at 2.5 with globulin high at 5.5. Urinalysis pending. RADIOLOGY: Two-view chest x-ray per radiologic interpretation shows cardiomegaly, interstitial markings mildly bilateral which may reflect interstitial edema or chronic scarring. Also of note was mild left atrial atelectasis versus developing pneumonia as well as a tiny left pleural effusion with no pneumothorax. ASSESSMENT: 1. Acute exacerbation of chronic congestive heart failure, undetermined type with an elevated BNP on admission secondary to poor medical compliance with treatment plan. 2. Elevated troponin, felt to be underlying exacerbation of congestive heart failure with no mention of chest pains, no acute changes in EKG. 3. Diabetes mellitus, type 2, on oral therapy, poorly controlled. 4. Significant history of coronary artery disease with previous coronary artery bypass grafting. 5. History of hyperlipidemia. 6. History of hypertension. 7. Chronic elevated alkaline phosphatase. PLAN: The patient will be admitted to the hospital for treatment of acute exacerbation of congestive heart failure with Lasix that was given 80 mg in the Emergency Room prior to admission. This will be continued with 40 mg b.i.d. for the first 24 hours. We will monitor his I&Os closely. We will start him back on some medications for chronic to include lisinopril, metoprolol and his Lasix. We will start him on DVT prophylaxis per hospital protocol. We will have him on fluid restrictions of 1500 mL or less in a 24 hour period. We will provide oxygen as needed. We will also utilize a nitroglycerin topical patch 0.4 mg q.24h. to assist with offload of vascular congestion while he is diuresing. We will plan to repeat laboratory studies in the morning to include CMP, CBC and repeat chest x-ray. We will anticipate length of stay to be at least two to three days until clinically stable. We will continue to monitor and treat appropriately. Once discharged, he will need Social Service to hopefully establish a primary care provider here in [place] through the [facility] to assist in his obtaining medications for treatment of his underlying congestive heart failure as well as close monitoring and education to prevent further exacerbations. #[id number] [facility]
[2017-05-02] MEDS: INSULIN LISPRO 100 UNITS/ML PEN SUBCU SCH ×3 (12:17→20:55)
[2017-05-02] MEDS: NITROGLYCERIN 0.4 MG/HR PATCH TOP SCH (12:18)
--- NOTE | 2017-05-02 13:16 | PCM.CORE ---
Physician DVT/VTE - Nurse DVT Assessment & Total Each Risk Factor Represents 3 Points: Medical PT with Hx of SC, CHF, Severe infection/sepsis Each Risk Factor Represents 1 Point: Age 41-60 Each Risk Factor is 1 Point: Varicose Veins/Edema Legs, Serious Lung disease ( pnemonia <1month, COPD, emphysema,etc) DVT Assessment Score: 6 - 5 or more Very High Risk Treatments: Early Ambulation *, Sequential Compression Device Pharmacological: Enoxaparin 40mg SQ Daily
[2017-05-02] MEDS ORDERED: ENOXAPARIN SODIUM 40 MG/0.4 ML SYG SUBCU SCH (13:30)
[2017-05-02] MEDS: IV SET AND CAP CHANGE INJ INJ SCH (13:56)
[2017-05-02] MEDS: LISINOPRIL 10 MG TAB PO SCH (13:58)
[2017-05-02] MEDS: METOPROLOL TARTRATE 25 MG TAB PO SCH (16:48)
[2017-05-02] MEDS ORDERED: FUROSEMIDE INJ 40 MG/4 ML VIAL IV SCH (17:00)
[2017-05-02] MEDS: PROMETHAZINE W/CODEINE SYR 5 ML UD PO PRN (20:01)
[2017-05-02] MEDS: REMOVE OLD PATCH TOP SCH (20:38)
[2017-05-02] MEDS: SODIUM CHLORIDE 0.9% (FLUSH) 10 ML SYG IV SCH (20:38)
--- NOTE | 2017-05-03 07:26 | RAD ---
EXAM DESCRIPTION: Chest,2 Views CLINICAL HISTORY: CHF COMPARISON: May 02, 2017 TECHNIQUE: PA/lateral FINDINGS: Moderate cardiomegaly with previous sternotomy is again noted. Coarsened interstitial markings persist but are less prominent than previous day's study with no significant pleural effusions noted. There is linear scarring or atelectasis in the retrocardiac region at the medial left lung base. This is unchanged from previous day's study. Dense lobar or segmental consolidation is not apparent. IMPRESSION: Slight interval improvement in the appearance of the chest with little change from previous day's study otherwise. Persistent cardiomegaly and coarsened interstitial markings. Electronically signed by: Errol Torres MD 05/03/2017 7:25 AM [facility]
[2017-05-03] MEDS ORDERED: metFORMIN HCL 500 MG TAB PO SCH (07:30)
[2017-05-03] MEDS: INSULIN LISPRO 100 UNITS/ML PEN SUBCU SCH ×4 (07:42→17:04)
[2017-05-03] MEDS ORDERED: ENOXAPARIN SODIUM 40 MG/0.4 ML SYG SUBCU ONE (07:46)
[2017-05-03] MEDS ORDERED: ASPIRIN TABLET 325 MG TAB ONE (07:46)
[2017-05-03] MEDS: LISINOPRIL 10 MG TAB PO SCH (08:05)
[2017-05-03] MEDS: NITROGLYCERIN 0.4 MG/HR PATCH TOP SCH (08:05)
[2017-05-03] MEDS: ASPIRIN TABLET 325 MG TAB PO SCH (08:05)
[2017-05-03] MEDS: ENOXAPARIN SODIUM 40 MG/0.4 ML SYG SUBCU SCH (08:05)
[2017-05-03] MEDS: METOPROLOL TARTRATE 25 MG TAB PO SCH ×2 (08:05→16:43)
[2017-05-03] MEDS: SODIUM CHLORIDE 0.9% (FLUSH) 10 ML SYG IV SCH ×2 (08:06→20:35)
[2017-05-03] MEDS: POTASSIUM CHLORIDE 10 MEQ TAB PO SCH ×2 (10:32→16:43)
[2017-05-03] MEDS: FUROSEMIDE 40 MG TAB PO SCH (10:32)
--- NOTE | 2017-05-03 11:27 | PN ---
DATE: 05/03/17 SUBJECTIVE: The patient is resting in the chair and appears to be sleeping quite easily. He states he is very tired and still feels "terrible all over." Still with significant tight pitting edema of the lower extremities up to the midthigh. No pitting edema of the abdominal wall at this time. After discussing with the patient regarding his followup with [facility], he states he does not remember going. He apparently did not keep his appointment, which was 2 to 3 days after his last discharge from the hospital a month ago. He was also given medications including Lasix to assist with gentle diuresis, which he is no longer taking at this time and does not remember ever haven taking. He is also requested to be on fluid restrictions and he admits he drinks water, usually up to 5 to 5 large glasses per day, which is well over twice the amount of fluid that he will require to assist with his significant edema presentation. OBJECTIVE: VITAL SIGNS: Afebrile. Pulse 85. Blood pressure 95/59. Pulse oximetry 97% on room air. Weight is stable with some discrepancies noted, but significant output of approximately 4700 mL is noted after initial diuresis started in the Emergency Room. Continued fluid restrictions with I&O to continue. LUNGS: Some rales upon deep inspiration, which clear with deep respirations. HEART: Tones are fairly regular. ABDOMEN: Soft. EXTREMITIES: Pitting edema to the midthighs bilaterally. LABORATORY: White count 6,700, hemoglobin 11.3, which is down from 12.3. Chemistries show potassium down to 3.4, BUN 30, creatinine 1.61. Troponin has come down to 0.1 and is probably elevated primarily related to the significant congestive heart failure presentation with elevated natriuretic peptide. Albumin is low at 2.2. No cultures at this time. Repeat chest x-ray shows some slight improvement in the pulmonary edema congestive state noted yesterday. ASSESSMENT: 1. Chronic congestive heart failure with an acute exacerbation of undetermined type with elevated natriuretic peptide on admission, requiring vigorous parenteral diuresis and fluid restrictions, etc. 2. Significantly poor compliance to medical treatment and followup in the clinic as suggested on previous admission. 3. Elevated troponin, probably related to an acute exacerbation of congestive heart failure with no evidence at this time of underlying ischemic coronary disease with troponin returning towards normal. 4. Diabetes mellitus, type 2, on oral therapy, poorly controlled. 5. Significant history of coronary artery disease with previous coronary artery bypass grafting in the past. 6. History of hyperlipidemia. 7. History of hypertension. 8. Chronic elevated alkaline phosphatase. PLAN: We will continue with fluid restrictions with special instructions to be given to assist the patient so he will more fully understand the importance of fluid restrictions upon going home. We will increase activity level and do ambulation studies to check on ongoing need for oxygen as needed. Social Service will continue to assist with his disability determination. Potassium supplementation to be initiated. We will try KVNG hose application to assist with reduction of the tissue fluid and pitting edema. Continue with p.o. Lasix in anticipation of home tomorrow if stable with followup in [facility] with Dr. Mayers soon thereafter. Work with [facility] to allow him to be on the $4 a month prescription plan when he is discharged. #[id number] [facility]TD[facility]
[2017-05-03] MEDS: FUROSEMIDE INJ 40 MG/4 ML VIAL IV ONE ×2 (16:42→17:05)
[2017-05-03] MEDS ORDERED: FUROSEMIDE INJ 20 MG/2 ML VIAL IV ONE (17:01)
[2017-05-03] MEDS: REMOVE OLD PATCH TOP SCH (20:35)
[2017-05-03] MEDS: PROMETHAZINE W/CODEINE SYR 5 ML UD PO PRN (21:57)
[2017-05-04] MEDS ORDERED: TEMAZEPAM 15 MG CAP PO PRN (00:22)
[2017-05-04] MEDS ORDERED: SUCRALFATE 1 GM TAB PO ONE (06:03)
[2017-05-04] MEDS: OMEPRAZOLE CAP 20 MG CAP PO SCH (06:06)
[2017-05-04] MEDS: SUCRALFATE 1 GM/10 ML 1 GM UD PO SCH ×4 (06:07→20:50)
[2017-05-04] MEDS: INSULIN LISPRO 100 UNITS/ML PEN SUBCU SCH ×2 (07:34→17:10)
[2017-05-04] MEDS: POTASSIUM CHLORIDE 10 MEQ TAB PO SCH ×2 (08:12→16:23)
[2017-05-04] MEDS: FUROSEMIDE 40 MG TAB PO SCH (08:12)
[2017-05-04] MEDS: SODIUM CHLORIDE 0.9% (FLUSH) 10 ML SYG IV SCH ×2 (08:12→20:50)
[2017-05-04] MEDS: LISINOPRIL 10 MG TAB PO SCH (08:13)
[2017-05-04] MEDS: ENOXAPARIN SODIUM 40 MG/0.4 ML SYG SUBCU SCH (08:13)
[2017-05-04] MEDS: NITROGLYCERIN 0.4 MG/HR PATCH TOP SCH (08:13)
[2017-05-04] MEDS: ASPIRIN TABLET 325 MG TAB PO SCH (08:13)
[2017-05-04] MEDS: METOPROLOL TARTRATE 25 MG TAB PO SCH ×2 (08:13→16:23)
[2017-05-04] MEDS: FUROSEMIDE INJ 20 MG/2 ML VIAL IV SCH ×2 (10:29→16:23)
--- NOTE | 2017-05-04 11:36 | PN ---
DATE: 05/04/17 SUBJECTIVE: The patient is lying in the bed on his left side. He is able to smile and be more alert and communicate a little better than yesterday. He states he feels a little stronger today than yesterday, though still unable to get up and do much. Today will be a day of increasing his activity level with a repeat of the ambulation study to evaluate for oxygen needs. He had decreased diuresis yesterday. We will need to observe closely to prevent any type of prerenal azotemia from the diuresis process. OBJECTIVE: VITAL SIGNS: See vitals. LUNGS: Less rales today than yesterday. HEART: Regular. ABDOMEN: otherwise soft. EXTREMITIES: No significant pedal edema today in the extremities, possibly assisted by the KVNG hose application, but there is a trace of pitting edema over the abdominal wall, possibly a redistribution of some of the tissue fluids. LABORATORY: Chemistries show potassium up to 4 while BUN is 34, creatinine 1.85 , glucose 106. Beta natriuretic peptide has increased a little bit from 2670 up to 2950. Reevaluation in a couple of days is in order. ASSESSMENT: 1. Chronic congestive heart failure with an acute exacerbation of undetermined type with elevated natriuretic peptide on admission, requiring vigorous parenteral diuresis and fluid restrictions, etc. 2. Significantly poor compliance to medical treatment and followup in the clinic as suggested on previous admission. 3. Elevated troponin, probably related to an acute exacerbation of congestive heart failure with no evidence at this time of underlying ischemic coronary disease with troponin returning towards normal. 4. Diabetes mellitus, type 2, on oral therapy, poorly controlled. 5. Significant history of coronary artery disease with previous coronary artery bypass grafting in the past. 6. History of hyperlipidemia. 7. History of hypertension. 8. Chronic elevated alkaline phosphatase. PLAN: We will increase activity level and utilize a walker to provide him some degree of stability. Reevaluate ambulation study today. Continue with Lasix 20 mg b.i.d. with fluid restrictions. We will recheck a beta natriuretic peptide in 2 days. Closely observe and monitor renal function. #[id number] [facility]
[2017-05-04] MEDS: REMOVE OLD PATCH TOP SCH (20:50)
[2017-05-04] MEDS: PROMETHAZINE W/CODEINE SYR 5 ML UD PO PRN (23:40)
[2017-05-05] MEDS: OMEPRAZOLE CAP 20 MG CAP PO SCH (06:25)
[2017-05-05] MEDS: SUCRALFATE 1 GM/10 ML 1 GM UD PO SCH ×4 (06:36→20:42)
[2017-05-05] MEDS: INSULIN LISPRO 100 UNITS/ML PEN SUBCU SCH ×2 (07:42→16:43)
--- NOTE | 2017-05-05 08:55 | CT ---
EXAM DESCRIPTION: Abdoment/Pelvis w/o Contrast CLINICAL HISTORY: Abdominal Distention COMPARISON: December 04, 2016 TECHNIQUE: CT of the abdomen and Pelvis was performed without IV contrast. This exam was performed according to our departmental dose-optimization program, which includes automated exposure control, adjustment of the mA and/or kV according to patient size and/or use of iterative reconstruction technique. FINDINGS: There are small bilateral pleural effusions, larger on the left side, stable from November,. Platelike atelectasis or scarring in the left lung base is again noted. There is no pneumoperitoneum or adenopathy. Is a small amount of ascites in the abdomen and pelvis. There is a calcified gallstone in the gallbladder neck without pericholecystic inflammation or fluid. The liver, spleen, pancreas, adrenals and kidneys are unremarkable for noncontrast technique. No liver contour nodularity. No dilated small bowel loops. No bladder wall thickening. No colonic wall thickening or pericolonic inflammation. Occasional colonic diverticulosis is noted. There is diffuse abdominal wall edema. There are degenerative changes in the lumbar spine at several levels. Degenerative changes are also noted in the sacroiliac joints with partial fusion anteriorly in both SI joints. There is a round area of decreased attenuation centrally in the left iliopsoas muscle anterior to the left femoral head, new from the prior. IMPRESSION: Small bilateral pleural effusions, small amount of ascites and diffuse abdominal wall edema, nonspecific. No evidence of cirrhosis or liver mass. Cholelithiasis without CT evidence of cholecystitis, unchanged from November,. Colonic diverticulosis, but no diverticulitis. Round area of decreased attenuation centrally in the left iliopsoas muscle anterior to the left femoral head, new from the previous study. Findings suggest the possibility of iliopsoas tendon injury. If the patient has left hip pain, MRI could better evaluate. Electronically signed by: Pedro Camarena MD 05/05/2017 8:54 AM BEAM DOFFER
[2017-05-05] MEDS: POTASSIUM CHLORIDE 10 MEQ TAB PO SCH ×2 (10:05→16:55)
[2017-05-05] MEDS: METOPROLOL TARTRATE 25 MG TAB PO SCH ×2 (10:06→16:55)
[2017-05-05] MEDS: ENOXAPARIN SODIUM 40 MG/0.4 ML SYG SUBCU SCH (10:06)
[2017-05-05] MEDS: ASPIRIN TABLET 325 MG TAB PO SCH (10:06)
[2017-05-05] MEDS: LISINOPRIL 10 MG TAB PO SCH (10:06)
[2017-05-05] MEDS: FUROSEMIDE INJ 20 MG/2 ML VIAL IV SCH ×2 (10:08→16:55)
[2017-05-05] MEDS: NITROGLYCERIN 0.4 MG/HR PATCH TOP SCH (10:08)
[2017-05-05] MEDS: SODIUM CHLORIDE 0.9% (FLUSH) 10 ML SYG IV SCH ×2 (10:08→20:42)
[2017-05-05] MEDS: IV SET AND CAP CHANGE INJ INJ SCH (12:04)
--- NOTE | 2017-05-05 18:10 | PN ---
DATE: 05/05/17 SUBJECTIVE: The patient is lying in the bed covered over and sleeping most of the day. He is able to ambulate and did quite well a couple of days ago on he ambulation study and we are awaiting the results of more recent ambulation studies to check on his oxygen requirements. Increasing discomfort in his abdomen primarily epigastric and right upper quadrants earlier this morning resulted in CT scan of the abdomen. He states that he does not take his home medicine such as diuretics and heart medicines because it upsets his stomach. No specific history of fatty food intolerance. OBJECTIVE: Fairly significantly noted pitting edema of the abdominal wall with less edema and less firmness of the lower extremities after applications of the KVNG hose to the lower extremities to the thigh. CT of the abdomen and pelvis does reveal increased edema of the abdominal wall. He does have gallbladder full of many stones. He has advanced atherosclerotic changes with calcification in vessels suggesting a fairly significant atherosclerotic process. Very large prostate also noted. LUNGS: Have some rales especially in the lung bases, though a little clearer today than yesterday. Temperature 98.8 , pulse 65, blood pressure 111/68, pulse oximetry 99% on room air. Fairly even fluid intake and output yesterday. He did lose weight from 78.3 to 77.1 overnight. LABORATORY: Potassium 4.4, BUN is up to 45, creatinine 2.14, glucose 138 down to 112, calcium 7.7. Yesterday's BNP is 2,950. RADIOLOGY: Abdominal pelvic CT scan shows some bilateral pleural effusions with some ascites and diffuse abdominal wall edema is noted. Cholelithiasis without cholecystitis present. Diverticulosis yet no diverticulitis. Abnormalities in the region of the left iliopsoas muscle noted to be observed. ASSESSMENT: 1. Chronic congestive heart failure with an acute exacerbation of undetermined type with elevated natriuretic peptide on admission, requiring vigorous parenteral diuresis and fluid restrictions, etc. 2. Significantly poor compliance to medical treatment and followup in the clinic as suggested on previous admission. 3. Elevated troponin, probably related to an acute exacerbation of congestive heart failure with no evidence at this time of underlying ischemic coronary disease with troponin returning towards normal. 4. Diabetes mellitus, type 2, on oral therapy, poorly controlled. 5. Significant history of coronary artery disease with previous coronary artery bypass grafting in the past. 6. History of hyperlipidemia. 7. History of hypertension. 8. Chronic elevated alkaline phosphatase. 9. Chronic cholelithiasis - probably symptomatic. PLAN: No specific evidence of previous echocardiogram has been done in the past. Slight degree of pericardial effusion noted on CT scan. Very large heart with significant calcification suggesting coronary artery disease. To assist with planning for outpatient management of his significant congestive heart failure, suggest an echocardiogram. Will get the advice of Dr. Azul on medical management as well as when an echocardiogram can be performed either while in the hospital or as an outpatient being referred through the [facility]. His general condition is very poor and will require significant support. Prognostically it is not good to have significantly elevated beta natriuretic peptides with repeat followup tomorrow to see if significant reduction can be obtained after diuresis before being able to send home for outpatient management. Suggest an appointment with [facility] shortly after discharge to ensure that he has specific followup. Repeat chest x-ray in the morning. [facility][id number] [facility]
[2017-05-05] MEDS: REMOVE OLD PATCH TOP SCH (22:59)
[2017-05-06] MEDS: PROMETHAZINE W/CODEINE SYR 5 ML UD PO PRN ×2 (02:06→06:24)
[2017-05-06] MEDS: OMEPRAZOLE CAP 20 MG CAP PO SCH (06:24)
[2017-05-06] MEDS: SUCRALFATE 1 GM/10 ML 1 GM UD PO SCH ×2 (06:24→12:30)
--- NOTE | 2017-05-06 06:49 | RAD ---
EXAM DESCRIPTION: Chest,2 Views CLINICAL HISTORY: chf COMPARISON: 05/03/2017 FINDINGS: Frontal and lateral views of the chest. Cardiomegaly. Prior median sternotomy. Prior valve repair. Leads overlie the chest. Pulmonary vascular congestion with slight improvement in interstitial opacities from the prior day's study. No lobar consolidation, pneumothorax, pleural effusion. Upper abdominal soft tissues are unremarkable. IMPRESSION: Cardiomegaly with pulmonary vascular congestion. Slight improvement in interstitial opacities from the previous study. Electronically signed by: Te Galvan 05/06/2017 6:48 AM READING RECOVERY TEACHER
[2017-05-06] MEDS: INSULIN LISPRO 100 UNITS/ML PEN SUBCU SCH (07:57)
[2017-05-06] MEDS: POTASSIUM CHLORIDE 10 MEQ TAB PO SCH (08:24)
[2017-05-06] MEDS: NITROGLYCERIN 0.4 MG/HR PATCH TOP SCH (08:25)
[2017-05-06] MEDS: FUROSEMIDE INJ 20 MG/2 ML VIAL IV SCH (08:25)
[2017-05-06] MEDS: METOPROLOL TARTRATE 25 MG TAB PO SCH (08:25)
[2017-05-06] MEDS: ENOXAPARIN SODIUM 40 MG/0.4 ML SYG SUBCU SCH (08:25)
[2017-05-06] MEDS: LISINOPRIL 10 MG TAB PO SCH (08:25)
[2017-05-06] MEDS: ASPIRIN TABLET 325 MG TAB PO SCH (08:25)
[2017-05-06] MEDS: SODIUM CHLORIDE 0.9% (FLUSH) 10 ML SYG IV SCH (08:26)
[2017-05-06 11:16] VITALS: BP 143/77; TEMP 96.6
[2017-05-06 13:26] VITALS: O2SAT 98
[2017-05-06] MEDS ORDERED: INFLUENZA VIRUS VACC (ADULT) 0.5 ML SYG IM ONE (15:36)
--- NOTE | 2017-05-16 10:03 | DS ---
SUPERVISING PHYSICIAN: Amado Monique MD DISCHARGE DIAGNOSIS: 1. Chronic congestive heart failure with an acute exacerbation of undetermined type with elevated natriuretic peptide on admission, requiring parenteral diuresis and fluid restrictions, showing good response. 2. Significantly poor compliance to medical treatment and followup in the clinic as suggested on previous admission. 3. Elevated troponin, related to an acute exacerbation of congestive heart failure with no evidence at this time of underlying ischemic coronary disease with troponin returning towards normal limits. 4. Diabetes mellitus, type 2, on oral therapy, poorly controlled. 5. History of coronary artery disease with previous coronary artery bypass grafting. 6. History of hyperlipidemia. 7. History of hypertension. 8. Chronic elevated alkaline phosphatase, unknown etiology, but could possibly be secondary to chronic congestive heart failure with some hepatic congestion. 9. Chronic cholelithiasis, probably symptomatic, but showing good response with the patient being a poor surgical candidate at time of discharge and encouraged to utilize a low fat diet. HISTORY OF PRESENT ILLNESS: Mr. Hernandez is a 61-year-old, male patient that has been followed previously at [facility]. He presented to the Emergency Department on date of admission complaining of abdominal swelling along with some lower extremity edema that had been occurring over the last four to five days with some exertional dyspnea. He has a strong history of congestive heart failure and diabetes, but is very noncompliant with his medication regimen. He is unsure what medications he actually takes and only really feels like he takes one pill which is a sugar pill. He denies any chest pains. Laboratory studies show his BNP was elevated at 2670 as well as first two sets of cardiac enzymes prior to admission showed troponin to be elevated at 0.08, which is unchanged. Chest x-ray was completed in the Emergency Department and per radiologic interpretation, two-view chest, shows cardiomegaly with interstitial markings mildly bilaterally which could reflect interstitial edema or chronic scarring. There was also note of a mild left basilar atelectasis versus developing pneumonia and a tiny left pleural effusion. No pneumothorax was reported. His initial vital signs showed respirations 28 with some labored effort with a heart rate of 105. Given his history of congestive heart failure and his poor medical compliance, the patient was treated for congestive heart failure exacerbation initially in the Emergency Department and given Lasix 80 mg, oxygen and aspirin. The patient was then admitted to the Medical/Surgical Floor for ongoing treatment of exacerbation of congestive heart failure and further evaluation. LABORATORY: White count on admission was 7,400, discharge 5,600. Hemoglobin and hematocrit were fairly stable and at discharge were 12.8 and 38.6. Platelet count was 251,000. Differential was within normal limits. Chemistries on admission showed normal electrolytes. BUN 27, creatinine. 135, initial CK was 272 with troponin 0.08 which went up to a maximum of 0.11. Blood sugars were fairly erratic between 93 and 304. After treatment with diuresis and prior to discharge, electrolytes showed just a mild hyponatremia with potassium normal at 4.9. BUN had gone up to 50, creatinine 2.19 after he was diuresed fairly aggressively. BNP initially on admission was elevated at 2670. Prior to discharge, it was down to 1620. Urinalysis on admission showed greater than 300 protein with moderate amount of blood, otherwise within normal limits. MICROBIOLOGY: No specimens were submitted. RADIOLOGY: Chest x-ray in the Emergency Room prior to admission per radiologic interpretation a two view chest showed medial sternotomy wires with cardiomegaly and interstitial markings mildly bilaterally, may reflect interstitial edema or chronic scarring. There was note of mild left basilar atelectasis versus developing pneumonia. Additional radiographic studies were completed and on 05/06/17, the morning of discharge, repeat two view chest x- ray showed cardiomegaly with pulmonary congestion, slightly improved interstitial opacities from previous studies. HOSPITAL COURSE: Mr. Hernandez was admitted to the hospital as noted in history of present illness for acute exacerbation of chronic congestive heart failure and poor medical compliance. He was initiated on lisinopril 10 mg daily, aspirin 325 mg daily as well as well as Lopressor 25 mg b.i.d. along with potassium and diuresed with IV Lasix. He did show good response and was felt on the morning of discharge stable enough to be discharged to continue with outpatient treatment plan. He did have some mild abdominal pains initially that improved and this was felt to probably be secondary to underlying cholelithiasis with CT of the pelvis and abdomen with contrast performed on per radiologic interpretation showing some bilateral pleural effusions, small amount of atelectasis with cholelithiasis without evidence of cholecystitis, unchanged from November 2016, diverticulosis, but no diverticulitis. He was kept on a low fat diet and fluid restrictions as well as low salt and given extensive medications in regards to medical management of his medical problems including congestive heart failure and hypertension. PLAN: The patient was discharged on 05/06/17 with instructions to followup with Dr. Mayers at [facility] as scheduled on 05/09/17 at 9 o'clock in the morning. He was to take his medications as directed, limit his fluids to less than 1200 mL per day and return to the hospital for any concerning symptoms. MEDICATIONS AT DISCHARGE: 1. Aspirin. 2. Lisinopril 10 mg daily. 3. Metformin 500 mg twice daily with food. 4. Lopressor, metoprolol tartrate 25 mg twice daily, #30. 5. Prilosec 40 mg daily. 6. Potassium chloride 10 mEq daily. 7. Carafate 1 gram before meals, #120. DIET: Low fat, low cholesterol diet with 1800 calorie ADA. ACTIVITY: Increase activity as tolerated to increase endurance. CONDITION AT DISCHARGE: Stable and improved. [id number] [facility]
== END 2017-05-06 16:15 | disposition home or self-care (01) | DRG 293 ==
LOC: ER 06:01 → MS 11:52 → OBSVTOIN 11:52
PROVIDERS: ADMIT Nurse Practitioner Family; ATTEND Nurse Practitioner Family
DX: I11.0 Hypertensive heart disease with heart failure (principal); I50.9 Heart failure, unspecified; R74.8 Abnormal levels of other serum enzymes; E11.9 Type 2 diabetes mellitus without complications; I25.10 Atherosclerotic heart disease of native coronary artery without angina pectoris; E78.5 Hyperlipidemia, unspecified; K80.20 Calculus of gallbladder without cholecystitis without obstruction; K21.9 Gastro-esophageal reflux disease without esophagitis; T50.1X6A Underdosing of loop [high-ceiling] diuretics, initial encounter; Z91.128 Patient's intentional underdosing of medication regimen for other reason; Z95.1 Presence of aortocoronary bypass graft; Z91.19 Patient's noncompliance with other medical treatment and regimen; Y92.009 Unspecified place in unspecified non-institutional (private) residence as the place of occurrence of the external cause; Z79.84 Long term (current) use of oral hypoglycemic drugs; Z79.82 Long term (current) use of aspirin; Z79.899 Other long term (current) drug therapy

== ENCOUNTER 2017-10-14 18:39 | Emergency (ER) | payer SELFPAY ==
[2017-10-14] MEDS ORDERED: SODIUM CHLORIDE 0.9% (FLUSH) 10 ML SYG IV PRN (18:55)
[2017-10-14] MEDS ORDERED: ASPIRIN TABLET 325 MG TAB PO ONE (18:55)
[2017-10-14] MEDS ORDERED: BUMETANIDE 0.25 MG/ML VIAL IV ONE (19:06)
[2017-10-14] MEDS ORDERED: NITROGLYCERIN 0.4 MG 25 EA TAB SL ONE (19:06)
--- NOTE | 2017-10-14 19:31 | RAD ---
EXAM: Abdomen Series CLINICAL INDICATION: 62-year-old male with abdominal distention. TECHNIQUE: Single view, PA chest was obtained. Two views of the abdomen were obtained in upright and supine positioning. COMPARISON: 04/05/2017. FINDINGS: Chest: Prominent cardiac and mediastinal silhouette. Heart size is top normal. Median sternotomy wires and heart valve. Elevation of the RIGHT hemidiaphragm. Low lung volumes grossly clear without focal opacity, pneumothorax or pleural effusions. The visualized bones are within normal limits. Abdomen: Gas is seen within normal caliber small and large bowel. Moderate volume of inspissated fecal material present at the level of the descending colon No free air is identified. There are no abnormal calcifications. The osseous structures are within normal limits. Vascular calcifications present throughout the soft tissues. The lung bases are clear. IMPRESSION: 1. No acute cardiopulmonary abnormalities. 2. Nonspecific abdominal bowel gas pattern. Electronically signed by: Smita Wang MD 10/14/2017 7:29 PM CDT
--- NOTE | 2017-10-14 20:53 | ED.PDOC ---
History of Present Illness - General Chief Complaint: Abdominal Pain Stated Complaint: Abdominal pain, trouble breathing, Chest discomf Time Seen by Provider: 10/14/17 19:05 Information Source: patient Exam Limitations: no limitations - History of Present Illness Initial Comments: Humphrey Hernandez 62 y/o male stated that he had been having abdominal discomfort,sob,dull headache bitemporal for the last 2 weeks and gradually getting worse.He was hospitalized at [facility] in [place] for 1 1/2 weeks last month while visiting his sister and had work up done unable to recall.Sister was called up stating he was hospitalized at [facility] ( formerly [facility])and was supposed to see specialist there but decided to come back here in [place] to see his 10 y/o son.Had not been taking his medications for 2 weeks.He has history of CHF,s/p CABG December 2015-[facility],DM2. Abdominal Pain Onset Location: generalized abdomen Pain Radiation: no radiation Quality: dull, waxing/waning Timing/Duration: other Improving Factors: nothing Worsening Factors: eating Associated Symptoms: shortness of breath, swelling/mass in abdomen Review of Systems - Review of Systems Constitutional: States: no symptoms reported EENTM: States: no symptoms reported Respiratory: States: no symptoms reported Cardiology: States: no symptoms reported Gastrointestinal/Abdominal: States: see HPI Genitourinary: States: no symptoms reported Musculoskeletal: States: no symptoms reported Skin: States: no symptoms reported All other Systems: Reviewed and Negative, No Change from Baseline Past Medical History (General) - Patient Medical History Hx Seizures: No Hx Stroke: No Hx Dementia: No Hx Asthma: No Hx of COPD: No Hx Cardiac Disorders: Yes Hx Congestive Heart Failure: Yes Hx Pacemaker: No Hx Hypertension: Yes Hx Thyroid Disease: No Hx Diabetes: Yes - non-compliant Hx Gastroesophageal Reflux: Yes Hx Renal Disease: No Hx Cancer: No Hx of HIV: No Hx Hepatitis C: No Hx MRSA: No Surgical History: coronary bypass surgery - Vaccination History Hx Tetanus, Diphtheria Vaccination: No Hx Influenza Vaccination: Yes - 2017 Hx Pneumococcal Vaccination: Yes - Social History Hx Tobacco Use: No Hx Chewing Tobacco Use: No Hx Alcohol Use: Yes Hx Substance Use: No Hx Substance Use Treatment: No Hx Depression: No Hx Physical Abuse: No Hx Emotional Abuse: No Hx Suspected Abuse: No Family Medical History - Family History Mother Family History: Unknown Hx Family Hypertension: Yes - mom Hx Family Diabetes: Yes - mom Physical Exam - Physical Exam General Appearance: Alert, Comfortable, No apparent distress Eyes, Ears, Nose, Throat Exam: normal ENT inspection Neck: non-tender, supple, normal inspection Respiratory: chest non-tender, no respiratory distress, rales - fine bases Cardiovascular/Chest: normal peripheral pulses, no gallop, no murmur, tachycardia - heart rate -108 Peripheral Pulses: No deficit Gastrointestinal/Abdominal: non tender, no organomegaly, distended, other - firm Rectal Exam: normal rectal tone, heme positive stool Extremity: no calf tenderness, pedal edema - 2 + Neurologic: alert, oriented x 3 Skin Exam: warm/dry Progress - Progress Progress: 10/14/17 21:07 Vital Signs - 8 hr 10/14/17 10/14/17 18:44 19:23 Temperature 98.9 F Pulse Rate [ 108 H 105 H Right Radial] Respiratory 24 22 Rate Blood Pressure 147/89 [Left Arm] O2 Sat by Pulse 94 L Oximetry - Results/Orders Results/Orders: 10/14/17 18:55 IV Care:Saline Lock per Protoc QSHIFT Telemetry .ONCE Sodium Chloride 0.9% (Flush) [Saline Flush Syringe] 10 ml IV PRN PRN EKG Stat Pulse Ox Stat 10/14/17 18:56 Pulse Oximetry Assessment DAILY Laboratory Results - last 24 hr 10/14/17 10/14/17 10/14/17 18:55 19:00 19:15 WBC 8.0 RBC 3.52 L Hgb 8.9 L Hct 28.0 L MCV 79.6 L MCH 25.2 L MCHC 31.8 L RDW 18.9 H Plt Count 296 MPV 8.5 Absolute Neuts (auto) 6.00 Absolute Lymphs (auto) 1.00 Absolute Monos (auto) 0.60 Absolute Eos (auto) 0.40 Absolute Basos (auto) 0.00 Neutrophils % 74.3 Lymphocytes % 12.2 L Monocytes % 8.0 Eosinophils % 4.9 Basophils % 0.6 PT 14.0 H INR 1.210 PTT (SP) 34.2 D-Dimer, Quantitative 3052 H* Sodium 133 L Potassium 4.4 Chloride 102 Carbon Dioxide 22 Anion Gap 13.4 BUN 62 H Creatinine 1.86 H BUN/Creatinine Ratio 33.3 H Random Glucose 387 H Serum Osmolality 300.0 H Calcium 8.7 Magnesium 2.5 Total Bilirubin 1.1 H Direct Bilirubin 0.4 H Indirect Bilirubin 0.7 AST 32 ALT 21 Alkaline Phosphatase 187 H Creatine Kinase 82 CK-MB (CK-2) 4.2 CK-MB (CK-2) % Not Reportable Troponin I 0.05 B-Natriuretic Peptide 3640.0 H* Serum Total Protein 8.7 H Albumin 3.7 Urine Color Yellow Urine Appearance Clear Urine pH 5.0 Ur Specific [place] 1.015 Urine Protein >=300 H Urine Glucose (UA) 500 H Urine Ketones Negative Urine Blood Small H Urine Nitrite Negative Urine Bilirubin Negative Urine Urobilinogen 0.2 Ur Leukocyte Esterase Negative Urine RBC 3-5 H Urine WBC 0-1 Ur Epithelial Cells 0 Amorphous Sediment Trace Urine Bacteria Rare Stool Occult Blood Urine Opiates Screen Urine Barbiturates Ur Phencyclidine Scrn U Amphetamin/Meth Scrn U Benzodiazepines Scrn U Cocaine Metab Screen U Cannabinoids Screen 10/14/17 10/14/17 20:02 20:12 WBC RBC Hgb Hct MCV MCH MCHC RDW Plt Count MPV Absolute Neuts (auto) Absolute Lymphs (auto) Absolute Monos (auto) Absolute Eos (auto) Absolute Basos (auto) Neutrophils % Lymphocytes % Monocytes % Eosinophils % Basophils % PT INR PTT (SP) D-Dimer, Quantitative Sodium Potassium Chloride Carbon Dioxide Anion Gap BUN Creatinine BUN/Creatinine Ratio Random Glucose Serum Osmolality Calcium Magnesium Total Bilirubin Direct Bilirubin Indirect Bilirubin AST ALT Alkaline Phosphatase Creatine Kinase CK-MB (CK-2) CK-MB (CK-2) % Troponin I B-Natriuretic Peptide Serum Total Protein Albumin Urine Color Urine Appearance Urine pH Ur Specific Cl[place] Urine Protein Urine Glucose (UA) Urine Ketones Urine Blood Urine Nitrite Urine Bilirubin Urine Urobilinogen Ur Leukocyte Esterase Urine RBC Urine WBC Ur Epithelial Cells Amorphous Sediment Urine Bacteria Stool Occult Blood Positive Urine Opiates Screen Negative Urine Barbiturates Negative Ur Phencyclidine Scrn Negative U Amphetamin/Meth Scrn Negative U Benzodiazepines Scrn Negative U Cocaine Metab Screen Negative U Cannabinoids Screen Negative - EKG/XRAY/CT EKG: Sinus, Tachy, nonspecific ST T wave Chg XRAY: chest - no effusion,consolidation,cardiac shadow uppr limit of normal,no vascular congestion Departure - Departure Clinical Impression: Abdominal distension, Positive fecal occult blood test, D-dimer, elevated, Non compliance w medication regimen, Renal insufficiency, Hyperglycemia CHF (congestive heart failure) Qualifiers: Congestive heart failure type: combined Congestive heart failure chronicity: acute on chronic Qualified Code(s): I50.43 - Acute on chronic combined systolic (congestive) and diastolic (congestive) heart failure Anemia Qualifiers: Anemia type: unspecified type Qualified Code(s): D64.9 - Anemia, unspecified Time of Disposition: 22:39 Disposition: Transfer to Hospital Condition: Fair Departure Forms: Patient Portal Self Enrollment Referrals: Radha You NP [Primary Care Provider] - 1-2 Weeks Home Medications: Ambulatory Orders Metformin HCl 500 mg PO BIDFD 05/02/17 Aspirin 325 mg PO DAILY tab 05/06/17 Lisinopril [Prinivil] 10 mg PO DAILY #30 tab 05/06/17 Metoprolol Tartrate [Lopressor] 25 mg PO BIDFD #30 tab 05/06/17 Omeprazole [Prilosec Cap] 40 mg PO DAILY@0630 cap 05/06/17 Potassium Chloride Tab [Micro-K] 10 meq PO DAILY #30 tab 05/06/17 Sucralfate Tab [Carafate Tab] 1 gm PO AC #120 tab 05/06/17 metFORMIN HCL [Glucophage] 500 mg PO BIDFD #60 tab 05/06/17 Transfer to Outside Facility - Transfer Information Accepting Provider:: D/W Dr. Beach-Hospitalist Accepting Facility: [facility] Reason for Transfer: required specialist not available
[2017-10-14 23:01] VITALS: BP 118/77; TEMP 97.9; O2SAT 97
== END 2017-10-14 23:02 | disposition short-term general hospital (02) ==
LOC: ER 18:39
DX: I11.0 Hypertensive heart disease with heart failure (principal); I50.43 Acute on chronic combined systolic (congestive) and diastolic (congestive) heart failure; E11.65 Type 2 diabetes mellitus with hyperglycemia; K21.9 Gastro-esophageal reflux disease without esophagitis; D64.9 Anemia, unspecified; R14.0 Abdominal distension (gaseous); Z91.19 Patient's noncompliance with other medical treatment and regimen; N28.9 Disorder of kidney and ureter, unspecified; Z95.1 Presence of aortocoronary bypass graft
CPT/HCPCS: 36415; 74019; 80048; 80076; 80307; 81001; 82270; 82550; 82553; 83880; 84484; 85025; 85379; 85610; 85730; 93005; J3490

== ENCOUNTER 2017-11-14 22:59 | Emergency (ER) | payer SELFPAY ==
[2017-11-14] MEDS ORDERED: FUROSEMIDE INJ 40 MG/4 ML VIAL IV ONE (23:21)
--- NOTE | 2017-11-15 00:18 | RAD ---
EXAM: PA and LATERAL CHEST RADIOGRAPHS CLINICAL INDICATION: Shortness of breath. Ascites. Peripheral edema. History of congestive heart failure and hepatic cirrhosis. COMPARISON: Compared to the chest radiographs May 06, 2017. FINDINGS: Unchanged sequela of remote heart surgery. Cardiac size and pulmonary vasculature are normal. Unchanged left basilar scar. New right basilar probable atelectasis. No pleural effusions or pneumothorax. No free peritoneal gas layering under the hemidiaphragms. No suspicious hilar or mediastinal lymphadenopathy. Bones are intact on these two views. IMPRESSION: New right basilar atelectasis. Otherwise, unchanged chest radiographs. Electronically signed by: Francisco Palumbo MD 11/15/2017 12:17 AM CDT
[2017-11-15] MEDS ORDERED: LEVOTHYROXINE SODIUM 0.075 MG TAB PO ONE (01:01)
[2017-11-15] MEDS ORDERED: metOLazone 2.5 MG TAB PO ONE (01:05)
--- NOTE | 2017-11-15 02:20 | ED.PDOC ---
History of Present Illness - General Chief Complaint: Respiratory Problem Stated Complaint: SOB Time Seen by Provider: 11/14/17 23:00 Source: patient Exam Limitations: no limitations - History of Present Illness Initial Comments: the patient is a 62-year-old male presented to the emergency room secondary to abdominal swelling and tension as well as some edema in his legs and mild shortness of breath when he lies back. This has been progressive over the last couple of weeks. He does have known CHF, chronic renal insufficiency and cirrhosis. He has not had any fevers. He is not really having any sharp belly pain. No nausea vomiting or diarrhea. No syncope or near-syncope. No chest pain or palpitations. He is oxygenating well. No respiratory distress. Timing/Duration: unsure Severity: moderate Improving Factors: nothing Worsening Factors: nothing Associated Symptoms: shortness of breath Allergies/Adverse Reactions: Allergies NO KNOWN ALLERGY Allergy (Verified 11/14/17 23:14) Home Medications: Ambulatory Orders Metformin HCl 500 mg PO BIDFD 05/02/17 Aspirin 325 mg PO DAILY tab 05/06/17 Lisinopril [Prinivil] 10 mg PO DAILY #30 tab 05/06/17 Metoprolol Tartrate [Lopressor] 25 mg PO BIDFD #30 tab 05/06/17 Omeprazole [Prilosec Cap] 40 mg PO DAILY@0630 cap 05/06/17 Potassium Chloride Tab [Micro-K] 10 meq PO DAILY #30 tab 05/06/17 Sucralfate Tab [Carafate Tab] 1 gm PO AC #120 tab 05/06/17 metFORMIN HCL [Glucophage] 500 mg PO BIDFD #60 tab 05/06/17 Furosemide Tab [Lasix Tab] 40 mg PO DAILY #7 tab 11/15/17 Levothyroxine Sodium 75 mcg PO DAILY #30 tab 11/15/17 Metoprolol Tartrate 25 mg PO BID #60 tab 11/15/17 Review of Systems - Review of Systems Constitutional: States: no symptoms reported EENTM: States: no symptoms reported Respiratory: States: see HPI Cardiology: States: no symptoms reported Gastrointestinal/Abdominal: States: see HPI Genitourinary: States: no symptoms reported Musculoskeletal: States: no symptoms reported Skin: States: no symptoms reported Neurological: States: no symptoms reported Endocrine: States: no symptoms reported All other Systems: No Change from Baseline Past Medical History (General) - Patient Medical History Hx Seizures: No Hx Stroke: No Hx Dementia: No Hx Asthma: No Hx of COPD: No Hx Cardiac Disorders: Yes Hx Congestive Heart Failure: Yes Hx Pacemaker: No Hx Hypertension: Yes Hx Thyroid Disease: No Hx Diabetes: Yes - non-compliant Hx Gastroesophageal Reflux: Yes Hx Renal Disease: No Hx Cancer: No Hx of HIV: No Hx Hepatitis C: No Hx MRSA: No Surgical History: no surgical history - Vaccination History Hx Tetanus, Diphtheria Vaccination: No Hx Influenza Vaccination: Yes - 2017 Hx Pneumococcal Vaccination: Yes - Social History Hx Tobacco Use: No Hx Chewing Tobacco Use: No Hx Alcohol Use: Yes Hx Substance Use: No Hx Substance Use Treatment: No Hx Depression: No Hx Physical Abuse: No Hx Emotional Abuse: No Hx Suspected Abuse: No Family Medical History - Family History Mother Family History: Unknown Hx Family Hypertension: Yes - mom Hx Family Diabetes: Yes - mom Physical Exam - Physical Exam General Appearance: Alert, Comfortable, No apparent distress Eye Exam: bilateral normal Ears, Nose, Throat: hearing grossly normal, normal ENT inspection, normal pharynx Neck: full range of motion, supple Respiratory: lungs clear, normal breath sounds, no respiratory distress, no accessory muscle use Cardiovascular/Chest: normal peripheral pulses, other - mild sinus tachycardia Peripheral Pulses: radial,right: 2+, radial,left: 2+, dorsalis pedis,right: 2+, dorsalis pedis,left: 2+ Gastrointestinal/Abdominal: non tender, soft, other - e does have significant ascites. 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, alert, normal mood/affect, oriented x 3 Skin Exam: normal color - no significant jaundice at this time Comments: Vital Signs - 24 hr 11/14/17 11/14/17 11/15/17 23:02 23:08 00:08 Temperature 97.8 F Pulse Rate [ 116 H 116 H 106 H monitor] Respiratory 20 20 209 H Rate Blood Pressure 143/100 151/84 [Left Arm] O2 Sat by Pulse 100 Oximetry 11/15/17 11/15/17 11/15/17 00:51 01:41 02:06 Temperature Pulse Rate [ 106 H 118 H 108 H monitor] Respiratory 22 22 22 Rate Blood Pressure 137/90 142/79 120/81 [Left Arm] O2 Sat by Pulse 95 94 L 93 L Oximetry Progress - Progress Progress: 11/15/17 02:21 the patient is a 62-year-old male presenting to emergency room secondary to primarily ascites and edema, likely due to his CHF and liver disease. his lungs are clear and he is not hypoxic. No evidence of sepsis at this time. He does have mild chronic sinus tachycardia. He used to be on a beta joaquin but has stopped taking it. metoprolol will be resumed for this purpose. he does not have a significantly elevated white blood cell count, fever and no real significant abdominal pain to indicate spontaneous bacterial peritonitis. The patient has been off of all medications for 6 months according to him. I'm going to restart the patient on Lasix 40 mg daily for the ascites and edema and he is going to be started on Synthroid 75 g daily for his new hypothyroidism as this has been proven to improve cardiac function. he does need to obtain a primary care doctor and follow-up with them later this week. Additionally it would be beneficial if he could follow his daily weights and make sure they are gradually decreasing. He weighs 155 pounds on the scale here today. Needs to maintain a fluid restriction of less than 2 L. ER warnings were given for any worsening. - Results/Orders Results/Orders: 11/14/17 23:20 Telemetry .CONTINUOUS BLOOD CULTURE Stat 11/14/17 23:30 EKG STAT mild sinus tachycardia with frequent PVCs. Mild left atrial dilation. Mild left axis deviation. Inverted T waves in leads 1 and aVL which is an old finding. Borderline QT interval. Laboratory Results - last 24 hr 11/14/17 11/14/17 11/14/17 23:20 23:20 23:20 WBC 6.4 RBC 3.88 L Hgb 10.5 L Hct 32.6 L MCV 84.0 MCH 27.0 MCHC 32.2 L RDW 22.5 H Plt Count 289 MPV 8.6 Absolute Neuts (auto) 4.70 Absolute Lymphs (auto) 0.70 L Absolute Monos (auto) 0.50 Absolute Eos (auto) 0.40 Absolute Basos (auto) 0.10 Neutrophils % 73.4 Lymphocytes % 11.3 L Monocytes % 7.3 Eosinophils % 6.9 H Basophils % 1.1 PT 13.5 H INR 1.170 PTT (SP) 31.6 Sodium 134 L Potassium 4.6 Chloride 106 Carbon Dioxide 21 Anion Gap 11.6 L BUN 42 H Creatinine 1.61 H BUN/Creatinine Ratio 26.1 H Random Glucose 191 H Serum Osmolality 283.9 Calcium 8.5 Magnesium 2.2 Total Bilirubin 0.9 AST 14 ALT 16 Alkaline Phosphatase 313 H Ammonia Creatine Kinase 65 CK-MB (CK-2) 4.3 CK-MB (CK-2) % 6.62 H Troponin I 0.05 B-Natriuretic Peptide 3980.0 H* Serum Total Protein 8.4 H Albumin 3.0 L Globulin 5.4 H Albumin/Globulin Ratio 0.6 L TSH 10.15 H Urine Color Urine Appearance Urine pH Ur Specific [place] Urine Protein Urine Glucose (UA) Urine Ketones Urine Blood Urine Nitrite Urine Bilirubin Urine Urobilinogen Ur Leukocyte Esterase Urine RBC Urine WBC Ur Epithelial Cells Urine Bacteria 11/14/17 11/15/17 23:20 01:19 WBC RBC Hgb Hct MCV MCH MCHC RDW Plt Count MPV Absolute Neuts (auto) Absolute Lymphs (auto) Absolute Monos (auto) Absolute Eos (auto) Absolute Basos (auto) Neutrophils % Lymphocytes % Monocytes % Eosinophils % Basophils % PT INR PTT (SP) Sodium Potassium Chloride Carbon Dioxide Anion Gap BUN Creatinine BUN/Creatinine Ratio Random Glucose Serum Osmolality Calcium Magnesium Total Bilirubin AST ALT Alkaline Phosphatase Ammonia 20 Creatine Kinase CK-MB (CK-2) CK-MB (CK-2) % Troponin I B-Natriuretic Peptide Serum Total Protein Albumin Globulin Albumin/Globulin Ratio TSH Urine Color Yellow Urine Appearance Clear Urine pH 5.0 Ur Specific [place] 1.025 Urine Protein >=300 H Urine Glucose (UA) Negative Urine Ketones Negative Urine Blood Small H Urine Nitrite Negative Urine Bilirubin Negative Urine Urobilinogen 1.0 Ur Leukocyte Esterase Negative Urine RBC 1-3 Urine WBC 0-1 Ur Epithelial Cells 0-1 Urine Bacteria 0 chest x-ray shows no evidence of significant fluid overload or cardiomegaly. No new infiltrate. He does have mild atelectasis. Departure - Departure Clinical Impression: Sinus tachycardia Cirrhosis Qualifiers: Hepatic cirrhosis type: unspecified hepatic cirrhosis Ascites presence: with ascites Qualified Code(s): K74.60 - Unspecified cirrhosis of liver Ascites Qualifiers: Ascites type: other type Qualified Code(s): R18.8 - Other ascites Hypothyroidism Qualifiers: Hypothyroidism type: unspecified Qualified Code(s): E03.9 - Hypothyroidism, unspecified Chronic renal insufficiency Qualifiers: Chronic kidney disease stage: stage 3 (moderate) Qualified Code(s): N18.3 - Chronic kidney disease, stage 3 (moderate) Disposition: Discharge to Home or Self Care Condition: Fair Departure Forms: ED Discharge - Pt. Copy, Patient Portal Self Enrollment Instructions: DI for Ascites, DI for Hypothyroidism Diet: low salt diet Activity: increase activity as tolerated Referrals: Radha You [facility] [Primary Care Provider] - 1-2 Weeks Prescriptions: Furosemide Tab [Lasix Tab] 40 mg PO DAILY #7 tab Levothyroxine Sodium 75 mcg PO DAILY #30 tab Metoprolol Tartrate 25 mg PO BID #60 tab Home Medications: Ambulatory Orders Metformin HCl 500 mg PO BIDFD 05/02/17 Aspirin 325 mg PO DAILY tab 05/06/17 Lisinopril [Prinivil] 10 mg PO DAILY #30 tab 05/06/17 Metoprolol Tartrate [Lopressor] 25 mg PO BIDFD #30 tab 05/06/17 Omeprazole [Prilosec Cap] 40 mg PO DAILY@0630 cap 05/06/17 Potassium Chloride Tab [Micro-K] 10 meq PO DAILY #30 tab 05/06/17 Sucralfate Tab [Carafate Tab] 1 gm PO AC #120 tab 05/06/17 metFORMIN HCL [Glucophage] 500 mg PO BIDFD #60 tab 05/06/17 Furosemide Tab [Lasix Tab] 40 mg PO DAILY #7 tab 11/15/17 Levothyroxine Sodium 75 mcg PO DAILY #30 tab 11/15/17 Metoprolol Tartrate 25 mg PO BID #60 tab 11/15/17 Additional Instructions: the patient is a 62-year-old male presenting to emergency room secondary to primarily ascites and edema, likely due to his CHF and liver disease. his lungs are clear and he is not hypoxic. No evidence of sepsis at this time. He does have mild chronic sinus tachycardia. He used to be on a beta joaquin but has stopped taking it. metoprolol will be resumed for this purpose. he does not have a significantly elevated white blood cell count, fever and no real significant abdominal pain to indicate spontaneous bacterial peritonitis. The patient has been off of all medications for 6 months according to him. I'm going to restart the patient on Lasix 40 mg daily for the ascites and edema and he is going to be started on Synthroid 75 g daily for his new hypothyroidism as this has been proven to improve cardiac function. he does need to obtain a primary care doctor and follow-up with them later this week. Additionally it would be beneficial if he could follow his daily weights and make sure they are gradually decreasing. He weighs 155 pounds on the scale here today. Needs to maintain a fluid restriction of less than 2 L. ER warnings were given for any worsening. He does need to remain compliant with his medications.
[2017-11-15 05:37] VITALS: BP 133/79; TEMP 97.5; O2SAT 95
== END 2017-11-15 07:08 | disposition home or self-care (01) ==
LOC: ER 22:59
DX: K74.60 Unspecified cirrhosis of liver (principal); R18.8 Other ascites; E03.9 Hypothyroidism, unspecified; I13.0 Hypertensive heart and chronic kidney disease with heart failure and stage 1 through stage 4 chronic kidney disease, or unspecified chronic kidney disease; E11.22 Type 2 diabetes mellitus with diabetic chronic kidney disease; N18.3 Chronic kidney disease, stage 3 (moderate); I50.9 Heart failure, unspecified; K21.9 Gastro-esophageal reflux disease without esophagitis; R00.0 Tachycardia, unspecified; Z79.82 Long term (current) use of aspirin; Z79.84 Long term (current) use of oral hypoglycemic drugs; Z91.14 Patient's other noncompliance with medication regimen
CPT/HCPCS: 36415; 71046; 80053; 81001; 82140; 82550; 82553; 83735; 83880; 84443; 84484; 85025; 85610; 85730; 87040; 93005; J1940

== ENCOUNTER 2017-11-16 23:17 | Emergency (ER) | payer SELFPAY ==
[2017-11-17] MEDS ORDERED: SPIRONOLACTONE 25 MG TAB PO ONE (00:05)
[2017-11-17] MEDS ORDERED: metOLazone 2.5 MG TAB PO ONE (00:05)
[2017-11-17] MEDS ORDERED: FUROSEMIDE INJ 40 MG/4 ML VIAL IV ONE ×2 (00:05→06:01)
--- NOTE | 2017-11-17 00:09 | ED.PDOC ---
History of Present Illness - General Chief Complaint: Respiratory Problem Stated Complaint: shortness of breath, swollen feet. Time Seen by Provider: 11/16/17 23:37 Source: patient Exam Limitations: no limitations - History of Present Illness Initial Comments: the patient is a 62-year-old male presenting to the emergency room secondary to abdominal distention and edema along with associated shortness of breath when he lies back due to the abdominal distention. The patient does apparently have a history of CHF as well as chronic renal insufficiency and most significantly his cirrhosis. The patient was seen here 2 nights ago. He was in a similar condition. He was given some diuretics and he did diurese him and was written for prescriptions for his diuretics which she of course has not picked up at this point in time. The patient has a very astonishing history of noncompliance. He has not taken his medications for at least the last 6 months to a year. The patient has been set up with appointments for the Medicaid office as well as for [employer] applications but he has not followed through with any of them. He is not treating his hypothyroidism. He is not treating his diabetes. He is not treating his congestive heart failure. He is not having any chest pain simply shortness of breath. No syncope or near syncope. No dizziness. The amount of edema and ascites that he has here today is approximately the same as 2 days ago. The weight that we are getting here today is 22 pounds more than 2 days ago however that is certainly not correcting regards to the weight from 2 days ago. Clinically the patient looks the same. He has not hypoxic. There is no evidence of any peritoneal signs. No evidence of any sepsis. Timing/Duration: unsure Severity: moderate Improving Factors: nothing Worsening Factors: nothing Associated Symptoms: loss of appetite, malaise, shortness of breath Allergies/Adverse Reactions: Allergies NO KNOWN ALLERGY Allergy (Verified 11/16/17 23:31) Home Medications: Ambulatory Orders Metformin HCl 500 mg PO BIDFD 05/02/17 Aspirin 325 mg PO DAILY tab 05/06/17 Lisinopril [Prinivil] 10 mg PO DAILY #30 tab 05/06/17 Metoprolol Tartrate [Lopressor] 25 mg PO BIDFD #30 tab 05/06/17 Omeprazole [Prilosec Cap] 40 mg PO DAILY@0630 cap 05/06/17 Potassium Chloride Tab [Micro-K] 10 meq PO DAILY #30 tab 05/06/17 Sucralfate Tab [Carafate Tab] 1 gm PO AC #120 tab 05/06/17 metFORMIN HCL [Glucophage] 500 mg PO BIDFD #60 tab 05/06/17 Furosemide Tab [Lasix Tab] 40 mg PO DAILY #7 tab 11/15/17 Levothyroxine Sodium 75 mcg PO DAILY #30 tab 11/15/17 Metoprolol Tartrate 25 mg PO BID #60 tab 11/15/17 Review of Systems - Review of Systems Constitutional: States: malaise EENTM: States: no symptoms reported Respiratory: States: short of breath - with activity Cardiology: States: edema Gastrointestinal/Abdominal: States: other - discomfort from abdominal distention. Genitourinary: States: no symptoms reported Musculoskeletal: States: no symptoms reported Skin: States: no symptoms reported Neurological: States: no symptoms reported Endocrine: States: no symptoms reported All other Systems: No Change from Baseline Past Medical History (General) - Patient Medical History Hx Seizures: No Hx Stroke: No Hx Dementia: No Hx Asthma: No Hx of COPD: No Hx Cardiac Disorders: Yes Hx Congestive Heart Failure: Yes Hx Pacemaker: No Hx Hypertension: Yes Hx Thyroid Disease: No Hx Diabetes: Yes - non-compliant Hx Gastroesophageal Reflux: Yes Hx Renal Disease: No Hx Cancer: No Hx of HIV: No Hx Hepatitis C: No Hx MRSA: No Surgical History: other - Vaccination History Hx Tetanus, Diphtheria Vaccination: No Hx Influenza Vaccination: Yes - 2017 Hx Pneumococcal Vaccination: Yes - Social History Hx Tobacco Use: No Hx Chewing Tobacco Use: No Hx Alcohol Use: Yes Hx Substance Use: No Hx Substance Use Treatment: No Hx Depression: No Hx Physical Abuse: No Hx Emotional Abuse: No Hx Suspected Abuse: No Family Medical History - Family History Mother Family History: Unknown Hx Family Hypertension: Yes - mom Hx Family Diabetes: Yes - mom Physical Exam - Physical Exam General Appearance: Alert, No apparent distress Ears, Nose, Throat: normal ENT inspection, normal pharynx Neck: non-tender, full range of motion Respiratory: lungs clear, normal breath sounds, no respiratory distress, no accessory muscle use Cardiovascular/Chest: normal peripheral pulses, regular rate, rhythm, no edema Peripheral Pulses: radial,right: 2+, radial,left: 2+, dorsalis pedis,right: 2+, dorsalis pedis,left: 2+ Gastrointestinal/Abdominal: soft, other - distended with significant ascites. 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 Again, the patient was given IV and oral diuretics. He is oxygenating well. No evidence of sepsis or spontaneous bacterial peritonitis. No evidence of respiratory distress. Vital signs are stable. At this point in time the patient would not benefit in any way that I can see by being put in the hospital for more aggressive IV diuresis. Slower diuresis with oral medications over the next week should help stabilize the patient and help prevent significant renal failure. I do not believe paracentesis would prove beneficial to this patient and would likely only increase his chance of developing peritonitis. He does need to follow back up with his primary care doctor around midweek next week. He also needs to get the Lasix, metoprolol and Synthroid filled that were written for him 2 days ago. He needs to maintain a 2 L fluid restriction. he needs to abstain from alcohol given his liver condition. He needs to weigh several times a week to make sure his weight is not increasing. At this point in time the patient's largest danger to his health is his own noncompliance. after some discussion with nursing staff in [place], the patient has expressed interest in hospice. We will send a referral information sheet to the local hospice care provider. Certainly if the patient continues to ignore his current medical problems his life expectancy is less than 6 months. the patient has diuresed well currently with the doses given here tonight. With continued oral diuresis over the next week I expect the patient to lose between 10 and 15 pounds of excess fluid. 11/17/17 01:10 11/17/17 06:02 - Results/Orders Results/Orders: EKG shows flipped T waves in leads 1 and aVL which are not new. He has an incomplete left bundle branch block which is not new. He has PVCs intermittently which are not new. He has a borderline QT length. Laboratory Results - last 24 hr 11/17/17 11/17/17 11/17/17 00:20 00:20 00:20 WBC 6.6 RBC 3.88 L Hgb 10.5 L Hct 32.9 L MCV 84.8 MCH 27.0 MCHC 31.8 L RDW 22.7 H Plt Count 306 MPV 8.5 Absolute Neuts (auto) 4.50 Absolute Lymphs (auto) 0.90 L Absolute Monos (auto) 0.60 Absolute Eos (auto) 0.50 H Absolute Basos (auto) 0.10 Neutrophils % 68.8 Lymphocytes % 14.2 L Monocytes % 8.8 Eosinophils % 7.0 H Basophils % 1.2 Sodium 133 L Potassium 4.5 Chloride 105 Carbon Dioxide 20 L Anion Gap 12.5 BUN 44 H Creatinine 1.46 H BUN/Creatinine Ratio 30.1 H Random Glucose 177 H Serum Osmolality 281.9 Calcium 8.3 L Total Bilirubin 0.9 AST 15 ALT 15 Alkaline Phosphatase 326 H Creatine Kinase 56 CK-MB (CK-2) 3.4 CK-MB (CK-2) % Not Reportable Troponin I 0.06 H Serum Total Protein 8.5 H Albumin 3.0 L Globulin 5.5 H Albumin/Globulin Ratio 0.5 L Departure - Departure Clinical Impression: Medically noncompliant Ascites Qualifiers: Ascites type: due to alcoholic cirrhosis Qualified Code(s): K70.31 - Alcoholic cirrhosis of liver with ascites Disposition: Discharge to Home or Self Care Condition: Fair Departure Forms: ED Discharge - Pt. Copy, Patient Portal Self Enrollment Instructions: DI for Ascites Diet: low salt diet, regular diet Activity: increase activity as tolerated Referrals: Radha You NP [Primary Care Provider] - 1-5 Days Home Medications: Ambulatory Orders Metformin HCl 500 mg PO BIDFD 05/02/17 Aspirin 325 mg PO DAILY tab 05/06/17 Lisinopril [Prinivil] 10 mg PO DAILY #30 tab 05/06/17 Metoprolol Tartrate [Lopressor] 25 mg PO BIDFD #30 tab 05/06/17 Omeprazole [Prilosec Cap] 40 mg PO DAILY@0630 cap 05/06/17 Potassium Chloride Tab [Micro-K] 10 meq PO DAILY #30 tab 05/06/17 Sucralfate Tab [Carafate Tab] 1 gm PO AC #120 tab 05/06/17 metFORMIN HCL [Glucophage] 500 mg PO BIDFD #60 tab 05/06/17 Furosemide Tab [Lasix Tab] 40 mg PO DAILY #7 tab 11/15/17 Levothyroxine Sodium 75 mcg PO DAILY #30 tab 11/15/17 Metoprolol Tartrate 25 mg PO BID #60 tab 11/15/17 Additional Instructions: the patient is a 62-year-old male brought to the emergency room secondary to ascites and edema causing some shortness of breath for the second time this week. Again, the patient was given IV and oral diuretics. He is oxygenating well. No evidence of sepsis or spontaneous bacterial peritonitis. No evidence of respiratory distress. Vital signs are stable. At this point in time the patient would not benefit in any way that I can see by being put in the hospital for more aggressive IV diuresis. Slower diuresis with oral medications over the next week should help stabilize the patient and help prevent significant renal failure. I do not believe paracentesis would prove beneficial to this patient and would likely only increase his chance of developing peritonitis. He does need to follow back up with his primary care doctor around midweek next week. He also needs to get the Lasix, metoprolol and Synthroid filled that were written for him 2 days ago. He needs to maintain a 2 L fluid restriction. he needs to abstain from alcohol given his liver condition. He needs to weigh several times a week to make sure his weight is not increasing. At this point in time the patient's largest danger to his health is his own noncompliance. after some discussion with nursing staff in [place], the patient has expressed interest in hospice. We will send a referral information sheet to the local hospice care provider. Certainly if the patient continues to ignore his current medical problems his life expectancy is less than 6 months. the patient has diuresed well currently with the doses given here tonight. With continued oral diuresis over the next week I expect the patient to lose between 10 and 15 pounds of excess fluid.
[2017-11-17] MEDS ORDERED: METOPROLOL SUCCINATE XL 25 MG TAB PO ONE (00:57)
[2017-11-17 05:01] VITALS: TEMP 97.8
[2017-11-17 06:37] VITALS: BP 119/80; O2SAT 96
== END 2017-11-17 07:14 | disposition home or self-care (01) ==
LOC: ER 23:17
DX: K70.31 Alcoholic cirrhosis of liver with ascites (principal); E11.9 Type 2 diabetes mellitus without complications; E03.9 Hypothyroidism, unspecified; I50.9 Heart failure, unspecified; Z91.19 Patient's noncompliance with other medical treatment and regimen; I44.7 Left bundle-branch block, unspecified; I49.3 Ventricular premature depolarization
CPT/HCPCS: 36415; 80053; 82550; 82553; 84484; 85025; 93005; J1940

== ENCOUNTER → 2017-11-23 | Outpatient (CLI) | payer OTHER | LOC: SOLHO 15:06 | PROVIDERS: ATTEND Family Medicine | DX: K74.60 Unspecified cirrhosis of liver (principal) ==